=== PATIENT | female | born 1980 | race Caucasian/White ===

== ENCOUNTER → 2020-06-03 14:09 | Outpatient (BNVA) | payer SELFPAY | PROVIDERS: PCP Internal Medicine; Visit Provider Orthopaedic Surgery | DX: Z76.89 Persons encountering health services in other specified circumstances (principal) ==

== ENCOUNTER 2020-06-16 14:19 | Outpatient (REF) | payer MEDICAID, OTHER, SELFPAY | END 2020-06-16 14:20 | disposition home or self-care (01) | LOC: HO.HOSX 14:19 | PROVIDERS: Visit Provider Orthopaedic Surgery | DX: Z13.89 Encounter for screening for other disorder (principal) ==

== ENCOUNTER → 2020-07-13 11:23 | Outpatient (BNVA) | payer MEDICAID, OTHER, SELFPAY | PROVIDERS: PCP Internal Medicine; Visit Provider Orthopaedic Surgery | DX: M77.11 Lateral epicondylitis, right elbow (principal) | CPT/HCPCS: 99202 ==

== ENCOUNTER 2020-07-21 18:37 | Outpatient (REF) | payer OTHER, SELFPAY ==
--- NOTE | ~2020-07-21 | MR_ITS ---
EXAMINATION: MR ELBOW WITHOUT CONTRAST, RIGHT CLINICAL INFORMATION: Lateral epicondylitis. Patient reports pain and numbness from the elbow to hand. COMPARISON: None TECHNIQUE: Multiplanar MR imaging was obtained through the right elbow without contrast on a 1.5 Kimberly magnet. FINDINGS: LIGAMENTS: Ulnar Collateral Ligament: Intact. Radial Collateral Ligament: Intact. TENDONS AND MUSCLES: Common Flexor: Intact. Common Extensor: Susceptibility artifact in the lateral humeral epicondyle likely arises from the metal at a soft tissue anchor from prior common extensor tendon repair. There is scar tissue in this region. No recurrent tears are identified. No significant tendinosis. Biceps: Intact. Brachialis: Intact. Triceps: Intact. BONE AND ARTICULAR CARTILAGE: Marrow signal is within normal limits aside from subtle chondral fissuring at the coronoid process. No fracture or malalignment. There is a small marginal osteophyte at the coronoid process. NERVES: Ulnar nerve is normal in appearance. The radial and median nerve and branches are normal in appearance without findings of impingement. No muscle denervation changes are identified. JOINT FLUID: No effusion or loose body. SOFT TISSUES: Scar tissue is present in the subcutaneous fat at the posterolateral aspect of the lateral humeral epicondyle. MR/MR elbow RT wo con IMPRESSION: Postsurgical changes at the lateral epicondyle without evidence of recurrent epicondylitis/tendinosis. No tears. Minimal arthrosis at the coronoid process. No acute osteochondral abnormalities.
== END 2020-07-21 18:38 | disposition home or self-care (01) ==
LOC: HO.MRI 18:37
PROVIDERS: Visit Provider Orthopaedic Surgery
DX: M77.11 Lateral epicondylitis, right elbow (principal)
CPT/HCPCS: 73221

== ENCOUNTER → 2020-07-29 09:05 | Outpatient (BNVA) | payer OTHER, SELFPAY | PROVIDERS: PCP Internal Medicine; Visit Provider Orthopaedic Surgery | DX: M75.41 Impingement syndrome of right shoulder (principal) | CPT/HCPCS: 20610; 99212; J1040 ==

== ENCOUNTER → 2020-08-12 14:56 | Outpatient (BNVA) | payer OTHER, SELFPAY | PROVIDERS: Visit Provider Orthopaedic Surgery ==

== ENCOUNTER 2020-10-21 14:06 | Outpatient (REF) | payer OTHER, SELFPAY ==
[2020-10-26 20:21] LABS: HPV mRNA E6/E7 rflx Not Detected (Not Detected)
== END 2020-10-21 14:07 | disposition home or self-care (01) ==
LOC: HO.LAB 14:06
PROVIDERS: PCP Internal Medicine; Visit Provider Advanced Practice Midwife
DX: Z01.419 Encounter for gynecological examination (general) (routine) without abnormal findings (principal); R87.610 Atypical squamous cells of undetermined significance on cytologic smear of cervix (ASC-US); E66.01 Morbid (severe) obesity due to excess calories; Z68.41 Body mass index [BMI] 40.0-44.9, adult; F17.200 Nicotine dependence, unspecified, uncomplicated
CPT/HCPCS: 87624; 88142

== ENCOUNTER 2021-10-27 15:34 | Outpatient (REF) | payer OTHER, SELFPAY ==
--- NOTE | ~2021-10-27 | MM_ITS ---
EXAMINATION: MM SCREENING DIGITAL BREAST TOMOSYNTHESIS, BILATERAL CLINICAL INFORMATION: Screening. Asymptomatic. No prior breast imaging. Age 41. The lifetime risk of breast cancer based on the Tyrer-Cuzick Model is 13%. COMPARISON: None (current study represents initial baseline exam). TECHNIQUE: Digital breast tomosynthesis is performed in both the craniocaudal and mediolateral oblique views along with computer-aided detection (CAD). Synthesized 2D images are generated from the tomosynthesis. FINDINGS: There are scattered areas of fibroglandular density (ACR BI-RADS breast composition Category b). There are no significant masses, abnormal calcifications, or other abnormalities. The axilla and skin contours are unremarkable. MM/MM tomosynthesis screening BI IMPRESSION: No mammographic evidence of malignancy. ASSESSMENT: BI-RADS 1: Negative RECOMMENDATION: Routine annual mammography screening. This patient's information was entered into a reminder system with a target due date for their next mammogram.
== END 2021-10-27 15:35 | disposition home or self-care (01) ==
LOC: HO.MAMMO 15:34
PROVIDERS: Visit Provider Internal Medicine
DX: Z12.31 Encounter for screening mammogram for malignant neoplasm of breast (principal)
CPT/HCPCS: 77063; 77067

== ENCOUNTER 2021-12-23 07:40 | Outpatient (REF) | payer OTHER, SELFPAY ==
--- NOTE | ~2021-12-23 | XR_ITS ---
EXAMINATION: XR shoulder RT min 2V CLINICAL INFORMATION: Reason for Exam M25.519 - Pain in unspecified shoulder COMPARISON: Shoulder radiographs 08/27/2019 TECHNIQUE: Three views of the shoulder XR/XR shoulder RT min 2V FINDINGS/IMPRESSION: * No acute fracture or dislocation. * Joint spaces are maintained without significant degenerative change. * No soft tissue abnormality.
== END 2021-12-23 07:41 | disposition home or self-care (01) ==
LOC: HO.HOSX 07:40
PROVIDERS: Visit Provider Physician Assistant
DX: M75.101 Unspecified rotator cuff tear or rupture of right shoulder, not specified as traumatic (principal)
CPT/HCPCS: 73030; J1040

== ENCOUNTER 2022-01-04 15:38 | Outpatient (REF) | payer OTHER, SELFPAY ==
--- NOTE | ~2022-01-04 | MR_ITS ---
EXAMINATION: MR SHOULDER WITHOUT CONTRAST, RIGHT CLINICAL INFORMATION: Right shoulder pain and numbness following a fall. Evaluate for a rotator cuff tendon tear. COMPARISON: Most recent right shoulder radiographs dated 12/23/2021. TECHNIQUE: MRI of the shoulder without contrast was performed on a high-field scanner. FINDINGS: ROTATOR CUFF: Minimal supraspinatus tendinosis with distal bursal surface fraying. No full-thickness rotator cuff tendon tear. No muscle atrophy or fatty infiltration. BICEPS: Intact. CORACOACROMIAL ARCH: The undersurface of the acromion is flat with no subacromial spur. The acromioclavicular joint is normal. LABRUM/CAPSULE: No displaced tear. Intact joint capsule. GLENOHUMERAL JOINT/MARROW: Intact articular cartilage. No marrow edema. No significant joint effusion. MR/MR shoulder RT wo con IMPRESSION: 1. Minimal supraspinatus tendinosis with distal bursal surface fraying. 2. Otherwise unremarkable examination.
== END 2022-01-04 15:39 | disposition home or self-care (01) ==
LOC: HO.MRI 15:38
PROVIDERS: Visit Provider Physician Assistant
DX: M75.101 Unspecified rotator cuff tear or rupture of right shoulder, not specified as traumatic (principal)
CPT/HCPCS: 73221

== ENCOUNTER 2022-01-26 15:10 | Outpatient (REF) | payer OTHER, SELFPAY ==
[2022-01-27 06:41] LABS: CT PCR NOT DETECTED (Not Detect.); NG PCR NOT DETECTED (Not Detect.)
[2022-01-27 09:40] LABS: BV Int Neg Control Negative (Negative); BV Int Pos Control Positive (Positive)
[2022-01-29 06:12] LABS: HPV mRNA E6/E7 rflx Not Detected (Not Detected)
== END 2022-01-26 15:11 | disposition home or self-care (01) ==
LOC: HO.LAB 15:10
PROVIDERS: Visit Provider Advanced Practice Midwife
DX: Z01.419 Encounter for gynecological examination (general) (routine) without abnormal findings (principal); Z11.51 Encounter for screening for human papillomavirus (HPV)
CPT/HCPCS: 87480; 87491; 87510; 87591; 87624; 87660; 88142

== ENCOUNTER 2022-03-11 08:38 | Outpatient (REF) | payer OTHER, SELFPAY ==
[2022-03-11 08:57] LABS: MANUAL DIFF FLAG NO
[2022-03-11 09:53] LABS: Basophils Absolute Auto 0.1 X10*3/uL (0.0-0.2); Basophils Percent Auto 0.8 % (0-2); Eosinophils Absolute Auto 0.1 X10*3/uL (0.0-0.4); Eosinophils Percent Auto 1.2 % (0-4); Hematocrit 44.7 % (37.0-47.0); Hemoglobin 14.3 g/dl (12.0-16.0); Imm Gran Abs Auto 0.04 X10*3/uL (0.00-0.03); Imm Gran Pct Auto 0.4 % (0.0-0.4); Lymphocytes Percent Auto 26.1 % (20-40); Mean Corpuscular Hemoglobin 29.2 pg (27.0-33.0); Mean Corpuscular Volume 91.2 fL (80.0-98.0); Mean Platelet Volume 11.6 fL (9.4-12.3); Monocytes Absolute Auto 0.7 X10*3/uL (0.1-1.2); Monocytes Percent Auto 6.1 % (2-11); Neutrophils Absolute Auto 7.4 x10*3/uL (2.0-8.3); Neutrophils Percent Auto 65.4 % (45-73); Platelet Count 359 X10*3/uL (160-400); Red Cell Distribution Width 13.4 % (11.0-16.0); White Blood Count 11.4 X10*3/uL (4.8-10.8)
[2022-03-11 10:11] LABS: Appearance Urine Clear; Color Urine Yellow; Glucose Urine UA Negative (Negative); Leukocyte Esterase Urine Negative (Negative); Nitrite Urine Negative (Negative); PH 6.5 (5.0-9.0); Specific Gravity - Urine 1.025 (1.005-1.025); UMIC TRIGGER UA YES; Urine Blood Small (1+) (Negative); Urine Ketones Negative (Negative); Urine Protein Negative (Neg-Trace)
[2022-03-11 10:17] LABS: Bacteria Urine None Seen (None Seen); Hyaline Casts Urine 0-2 /LPF (0-2); WBC Urine 0-5 /HPF (0-5)
[2022-03-11 10:46] LABS: Alanine Aminotransferase 11 U/L (0-31); Albumin Level 4.2 g/dL (3.5-5.0); Alkaline Phosphatase 91 U/L (39-117); Anion Gap 15 (12-20); Aspartate Amino Transferase 11 U/L (5-31); Bilirubin Total 0.6 mg/dL (0.0-1.0); Blood Urea Nitrogen 9 mg/dL (9-16); Calcium 9.2 mg/dL (8.4-10.2); Carbon Dioxide 26 mmol/L (22-29); Chloride 103 mmol/L (96-108); Cholesterol 199 mg/dL; Estimated Glomerular Filt Rate > 60; Glucose Random 87 mg/dL (60-115); HDL Cholesterol 36 mg/dL; LDL Cholesterol Calculated 139 mg/dl; Potassium 4.7 mmol/L (3.3-5.1); Sodium 139 mmol/L (135-145); Total Protein 7.1 g/dL (6.5-8.0); Triglycerides 120 mg/dL
[2022-03-11 10:55] LABS: Free T4 (Free Thyroxine) 1.16 ng/dL (0.71-1.85); Thyroid Stimulating Hormone 0.57 uIU/mL (0.32-4.0); Vitamin D 25-OH Total 14.6 ng/mL (>30)
[2022-03-11 11:10] LABS: Folate 10.6 ng/mL (> or = 4.0); Vitamin B12 191 pg/mL (200-900)
[2022-03-15 01:46] LABS: Rubella IgG Antibody 1.26 Index
== END 2022-03-11 08:39 | disposition home or self-care (01) ==
LOC: HO.LAB 08:38
PROVIDERS: PCP Internal Medicine; Visit Provider Internal Medicine
DX: Z02.0 Encounter for examination for admission to educational institution (principal); F41.1 Generalized anxiety disorder; K21.9 Gastro-esophageal reflux disease without esophagitis; E78.00 Pure hypercholesterolemia, unspecified; Z80.0 Family history of malignant neoplasm of digestive organs
CPT/HCPCS: 36415; 80053; 80061; 81001; 82306; 82607; 82746; 84439; 84443; 85025; 86735; 86762; 86765

== ENCOUNTER 2022-06-23 13:13 | Outpatient (REF) | payer OTHER, SELFPAY ==
[2022-06-23 20:28] LABS: CT PCR NOT DETECTED (Not Detect.); NG PCR NOT DETECTED (Not Detect.)
[2022-06-24 12:30] LABS: BV Int Neg Control Negative (Negative); BV Int Pos Control Positive (Positive)
== END 2022-06-23 13:14 | disposition home or self-care (01) ==
LOC: HO.LNP 13:13
PROVIDERS: PCP Internal Medicine; Visit Provider Obstetrics & Gynecology
DX: Z11.3 Encounter for screening for infections with a predominantly sexual mode of transmission (principal); N75.0 Cyst of Bartholin's gland
CPT/HCPCS: 0353U; 87480; 87510; 87660

== ENCOUNTER → 2022-11-03 13:08 | Outpatient (REF) | payer OTHER, SELFPAY | LOC: HO.SL 13:08 | PROVIDERS: PCP Internal Medicine; Visit Provider Internal Medicine | DX: G47.33 Obstructive sleep apnea (adult) (pediatric) (principal) | CPT/HCPCS: 95806 ==

== ENCOUNTER 2022-11-05 07:38 | Outpatient (REF) | payer OTHER, SELFPAY ==
--- NOTE | ~2022-11-05 | MM_ITS ---
EXAMINATION: MM SCREENING DIGITAL BREAST TOMOSYNTHESIS, BILATERAL CLINICAL INFORMATION: Screening. Asymptomatic. The lifetime risk of breast cancer based on the Tyrer-Cuzick Model is 13%. COMPARISON: Mammography: 10/27/2021 (baseline). TECHNIQUE: Digital breast tomosynthesis is performed in both the craniocaudal and mediolateral oblique views along with computer-aided detection (CAD). Synthesized 2D images are generated from the tomosynthesis. FINDINGS: There are scattered areas of fibroglandular density (ACR BI-RADS breast composition Category b). There are no significant masses, abnormal calcifications, or other abnormalities. Parenchymal pattern is similar to prior studies. There is no developing density or architectural abnormality. The axilla and skin contours are unremarkable. No significant changes. MM/MM tomosynthesis screening BI IMPRESSION: No mammographic evidence of malignancy. ASSESSMENT: BI-RADS 1: Negative RECOMMENDATION: Routine annual mammography screening. This patient's information was entered into a reminder system with a target due date for their next mammogram.
== END 2022-11-05 07:39 | disposition home or self-care (01) ==
LOC: HO.MAMMO 07:38
PROVIDERS: PCP Internal Medicine; Visit Provider Internal Medicine
DX: Z12.31 Encounter for screening mammogram for malignant neoplasm of breast (principal)
CPT/HCPCS: 77063; 77067

== ENCOUNTER 2023-01-02 16:45 | Outpatient (AMB) | payer BC, SELFPAY ==
[2023-01-02 16:46] VITALS: BP 110/80; PULSE 73; O2SAT 98; BMI 37.3
--- NOTE | 2023-01-02 16:46 | A.OFFPC_ITS ---
Vital Signs 01/02/23 16:46 Height 5 ft 2 in Weight 204 lb 2 oz BMI 37.3 BP 110/80 Blood Pressure Location Lt brachial Position Sitting Pulse 73 Pulse Source Pulse Oximeter Pulse Oximetry (%) 98 Oxygen Delivery Method Room Air Intake Visit Reasons: follow up [employer] Required: No Accompanied by: Self / Same As Patient Allergies barium sulfate Allergy (Unknown, Verified 01/02/23 16:46) Nightmare codeine Allergy (Unknown, Verified 01/02/23 16:46) codeine phosphate, ITCHY varenicline [From Chantix] Allergy (Unknown, Verified 01/02/23 16:46) nightmares Medication List - Last Reconciled 01/02/23 by Huong Major MD benzonatate 100 mg PO BID cyanocobalamin (vitamin B-12) 1,000 mcg PO DAILY hydroxyzine HCl 25 mg PO BID ipratropium-albuterol 20-100 mcg/actuation (Combivent Respimat) 1 puff PO Q6H nicotine 1 patch transdermal DAILY nicotine 1 patch transdermal DAILY omeprazole 20 mg PO DAILY sumatriptan succinate 50 mg PO Q2-4H PRN tizanidine 4 mg PO TID PRN Tobacco use date assessed: 01/02/23 Dental Screening Dental Screen Date: 01/02/23 Did you have a dental visit in the last 12 months?: No Did you have a dental problem in the last 6 months where you did not have access to dental care?: No Was dental information given to patient?: Patient has dentist HPI follow up HPI Details 42-year-old female smoker with a history of peripheral vascular disease generalized anxiety disorder right shoulder pain asthma GERD hypersomnia last seen in July 2022 sleep study was requested. Results showing mild sleep study AHI of 7 patient has been advised conservative measures only weight reduction and position therapy. Patient had an MRI of the right shoulder showing minimal supraspinatus tendinosis with distal bursal l surface fraying. PT advised . Is to smoke states about 7-10 cigarettes a day and is willing to try the patches as well as advised to add lozenges to help. As for asthma would like to get a refill on the Combivent. Patient also recently had a left wrist injury was trying to open double door and somebody was coming in so injured the left wrist and wants to get them x-rays done. [facility] Medical History (Updated 01/02/23 @ 17:00 by Huong Major MD) Annual physical exam Anxiety ASCUS of cervix with negative high risk HPV Asthma Breast cancer screening by mammogram Cervical disc herniation Family history of colon cancer GERD (gastroesophageal reflux disease) Hypersomnia Labral tear of left hip joint Lateral epicondylitis of right elbow Lumbar disc herniation Migraine Obesity, morbid, BMI 40.0-49.9 Painful arc syndrome of right shoulder Pelvic floor weakness in female Rotator cuff impingement syndrome of right shoulder Rotator cuff tear, left Smoker Tobacco abuse Wedge compression fracture of T11 vertebra Well woman exam with routine gynecological exam Well woman exam with routine gynecological exam Surgical History History of elbow surgery History of foot surgery History of tubal ligation Family History Mother Depression with anxiety Colon cancer, Onset Age: 50 Myocardial infarction Father No problems noted. 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 1. Little interest or pleasure in doing things: not at all 2. Feeling down, depressed, or hopeless: not at all 3. Trouble falling or staying asleep, or sleeping too much: not at all 4. Feeling tired or having little energy: not at all 5. Poor appetite or overeating: not at all 6. Feeling bad about yourself - or that you are a failure or have let yourself or your family down: not at all 7. Trouble concentrating on things, such as reading the newspaper or watching television: not at all 8. Moving or speaking so slowly that other people could have noticed. Or the opposite - being so fidgety or restless that you have been moving around a lot more than usual: not at all 9. Thoughts that you would be better off or of hurting yourself in some way: not at all Total score: 0 Depression Screening Interpretation: Negative Source: Developed by Drs. Sathish Bui, Adriana Watts, Vladislav Espinoza and colleagues, with an educational dominick from [employer]. Thrive Questionnaire Date Thrive assessed: 01/02/23 I am a: Patient What is your living situation today?: I have a steady place to live Within the past 12 months, did the food you bought not last and you didn't have the money to get more?: Never true Within the past 12 months, did you worry whether your food would run out before you got money to buy more?: Never true Do you have trouble paying for medicines?: No Do you have trouble getting transportation to medical appointments?: No Do you have trouble paying your heating and electricity bill?: No Do you have trouble taking care of your child, family member or friend?: No Do you have trouble with day-to-day activities such as bathing, preparing meals, shopping, managing finances, etc.?: No Are you currently unemployed and looking for a job?: No Are you interested in more education?: No Please select the resources that you would like help with: None Currently or been in a relationship where the following occur: no concerns reported AUDIT C Alcohol Use Questionnaire (AUDIT-C) 1. How often do you have a drink containing alcohol?: Monthly or less 2. How many drinks containing alcohol do you have on a typical day when you are drinking?: 1 or 2 3. How often do you have six or more drinks on one occasion?: Never Total Score: 1 ADELAIDA-7 AMB Questionnaire ADELAIDA-7 Date ADELAIDA - 7 assessed: 01/02/23 Feeling nervous, anxious, or on edge: 0 = Not at all Not being able to stop or control worryin = Not at all Worrying too much about different things: 0 = Not at all Trouble relaxin = Not at all Being so restless that it is hard to sit still: 0 = Not at all Becoming easily annoyed or irritable: 0 = Not at all Feeling afraid as if something awful might happen: 0 = Not at all Total ADELAIDA-7 score (0-4 normal; 5-9 mild; 10-14 moderate; 15-21 severe): 0 Source: Developed by Drs. Sathish Bui, Adriana Watts, Vladislav Espinoza and colleagues, with an educational dominick from [employer]. Physical exam (Primary Care) Vital Signs: Last Vital Signs Pulse 73 01/02/23 16:46 BP 110/80 01/02/23 16:46 Pulse Ox 98 01/02/23 16:46 Oxygen Delivery Method Room Air 01/02/23 16:46 BMI result Body Mass Index 37.3 Tobacco/Smoking Status: Tobacco use Status Tobacco use date assessed 01/02/23 01/02/23 16:52 e-Cigarette/Vaping Use Never Used 01/02/23 16:52 PHQ-9: PHQ-9 Score PHQ-9: Total score 0 01/02/23 16:52 Depression Screening Interpretation: Negative Thrive Assessment: Date of Thrive Assessment Date Thrive assessed 01/02/23 01/02/23 16:52 Currently or been in a relationship where the following occur: no concerns reported Const General: alert; No acute distress Eyes Conjunctivae: conjunctivae normal Resp Auscultation: clear to auscultation bilaterally Cardio Rate: regular rate Rhythm: regular rhythm GI Inspection: Yes normal to inspection Extrem General: Yes normal to inspection and No edema Assessment and Plan Assessment & Plan (1) Right shoulder pain: Comment: 2021Minimal supraspinatus tendinosis with distal bursal surface fraying. 2. Otherwise unremarkable examination. Code(s): M25.511 - Pain in right shoulder Plan: Patient has seen Ortho advised physical therapy (2) Mild obstructive sleep apnea: Code(s): G47.33 - Obstructive sleep apnea (adult) (pediatric) Plan: Conservative measures advised which is losing weight and avoid sleeping supine (3) Generalized anxiety disorder: Comment: Decline any referral for counseling(very busy) Code(s): F41.1 - Generalized anxiety disorder Plan: Continue with present medication (4) Tobacco abuse: Code(s): Z72.0 - Tobacco use Plan: Patient is strongly advised to stop! Nicotine patches sent in (5) Asthma: Code(s): J45.909 - Unspecified asthma, uncomplicated Qualifiers: Asthma severity: mild Asthma persistence: intermittent Asthma complication type: uncomplicated Qualified Code(s): J45.20 - Mild intermittent asthma, uncomplicated Plan: Stop smoking! Continue with the inhaler as needed. Discussed on stopping smoking. (6) GERD (gastroesophageal reflux disease): Code(s): K21.9 - Gastro-esophageal reflux disease without esophagitis Qualifiers: Esophagitis presence: without esophagitis Qualified Code(s): K21.9 - Gastro-esophageal reflux disease without esophagitis Plan: Avoid the foods that causes that usually spicy foods, tomato products, juices, coffee, soda and foods that your sensitive to. After eating do not lie down, allow 3-4 hours before in lie down. And keep the head of bed above 30 degrees to avoid the acid from going up. Advised strongly to stop smoking! (7) Left wrist pain: Code(s): M25.532 - Pain in left wrist Plan: X-ray requested Orders: Orders XR wrist LT 2V Today M25.532 - Pain in left wrist Comprehensive Met. Panel Today K21.9 - Gastro-esophageal reflux disease without esophagitis Complete Blood Count Auto Diff Today K21.9 - Gastro-esophageal reflux disease without esophagitis Free T4 (Free Thyroxine) Today K21.9 - Gastro-esophageal reflux disease without esophagitis Vitamin B12 and Folate Today K21.9 - Gastro-esophageal reflux disease without esophagitis Thyroid Stimulating Hormone Today K21.9 - Gastro-esophageal reflux disease without esophagitis Vitamin D 25-OH Total Today K21.9 - Gastro-esophageal reflux disease without esophagitis Lipid Panel Today E78.00 - Pure hypercholesterolemia, unspecified, K21.9 - Gastro-esophageal reflux disease without esophagitis Medications: New nicotine 1 patch transdermal DAILY 28 ea 0RF Z72.0 - Tobacco use nicotine 1 patch transdermal DAILY 28 ea 0RF Z72.0 - Tobacco use Coding Level of Care Code Est Pt Level 4 (32995) Diagnoses Right shoulder pain M25.511 Mild obstructive sleep apnea G47.33 Generalized anxiety disorder F41.1 Tobacco abuse Z72.0 Asthma J45.20 Asthma severity: mild Asthma persistence: intermittent Asthma complication type: uncomplicated GERD (gastroesophageal reflux disease) K21.9 Esophagitis presence: without esophagitis Left wrist pain M25.532
== END 2023-01-02 17:22 | disposition home or self-care (01) ==
PROVIDERS: Visit Provider Internal Medicine
DX: M25.511 Pain in right shoulder (principal); G47.33 Obstructive sleep apnea (adult) (pediatric); J45.20 Mild intermittent asthma, uncomplicated; K21.9 Gastro-esophageal reflux disease without esophagitis; F41.1 Generalized anxiety disorder; Z72.0 Tobacco use; M25.532 Pain in left wrist
CPT/HCPCS: 99214

== ENCOUNTER 2023-04-14 09:06 | Outpatient (AMB) | payer BC, SELFPAY ==
--- NOTE | 2023-04-14 09:37 | AM.OFFWIN_ITS ---
Intake Vital Signs 04/14/23 09:38 Height 5 ft 2 in Weight 92.533 kg BMI 37.3 BP 120/84 Blood Pressure Location Lt brachial Position Sitting Pulse 87 Pulse Source Pulse Oximeter Temp 98.8 F Temp Source Oral Pulse Oximetry (%) 98 Oxygen Delivery Method Room Air Intake Visit Reasons: EST/chest congestion(lobby masked) Intake Note: Pt is here today chest congestion x3 days and coughing Patient Tobacco Use Status: Current everyday Tobacco user Allergies barium sulfate Allergy (Unknown, Verified 04/14/23 09:39) Nightmare codeine Allergy (Unknown, Verified 04/14/23 09:39) codeine phosphate, ITCHY varenicline [From Chantix] Allergy (Unknown, Verified 04/14/23 09:39) nightmares Do you need a note to return to daycare/school/sports/work: Yes HPI HPI Comments History of Present Illness Details 1015 43-year-old female history of vitamin B1 2 deficiency, hemorrhoids, constipation, migraines, asthma, GERD, anxiety presenting to the clinic for sick visit complaining of chest congestion, cough, feels like she has to cough something up however has not been able to. Patient also reporting associated fatigue, malaise. Denies sick contacts. Denies fevers, chills, chest pain, shortness of breath, nausea,, pain, headache, vision changes, dizziness weakness Physical exam benign Likely bronchitis versus viral illness. Unlikely pneumonia, pulmonary embolism, no signs of acute respiratory distress. No signs of effusions. Plan will obtain a COVID test, chest x-ray. Educated patient on diagnosis and treatment plan, answered all question, patient verbalizes understanding. At this time patient will be discharged home, advised to return with new or worsening symptoms. Educated on worrisome signs and symptoms and when to return. At this time I feel comfortable discharge home. [facility] Medical History Hypersomnia Pelvic floor weakness in female Well woman exam with routine gynecological exam Family history of colon cancer Annual physical exam Painful arc syndrome of right shoulder Breast cancer screening by mammogram Smoker Obesity, morbid, BMI 40.0-49.9 Well woman exam with routine gynecological exam Rotator cuff impingement syndrome of right shoulder Lumbar disc herniation Rotator cuff tear, left Labral tear of left hip joint Wedge compression fracture of T11 vertebra Cervical disc herniation ASCUS of cervix with negative high risk HPV Migraine Tobacco abuse Anxiety Asthma GERD (gastroesophageal reflux disease) Lateral epicondylitis of right elbow Surgical History History of elbow surgery History of tubal ligation History of foot surgery Family History Mother Depression with anxiety Colon cancer, Onset Age: 50 Myocardial infarction Father No problems noted. 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 Cognitive needs: No Hearing needs: No Vision needs: No Female Reproductive History Menstrual Age of Menarche: 15 Review of Systems Const Details: Constitutional : No Weight loss, No Fever, No Chills, + Fatigue, + Malaise ENT/Mouth : No sore throat, No Rhinorrhea Eyes: No Eye Pain, No Swelling, No Redness Cardiovascular : No Chest Pain, No SOB, No Dyspnea on Exertion, No Orthopnea, No Edema, No Palpitations Respiratory : + Cough, No Sputum, No Wheezing Gastrointestinal : No Nausea, No Vomiting, No Diarrhea, No Constipation, No abd ominal Pain, No Hematochezia, No Melena Genitourinary : No Dysuria, No Urinary Frequency, No Hematuria, Musculoskeletal : No joint pain, No Myalgias, No Joint Swelling Skin : No Skin Lesions, No rash Neuro : No Weakness, No Numbness, No Dizziness, No Headache Psych : No Anxiety/Panic, No Depression All other systems reviewed and are negative All systems reviewed & are unremarkable except as noted in HPI and below Physical Exam Vital Signs: Last Vital Signs Temp 98.8 F 04/14/23 09:38 Pulse 87 04/14/23 09:38 BP 120/84 04/14/23 09:38 Pulse Ox 98 04/14/23 09:38 Oxygen Delivery Method Room Air 04/14/23 09:38 BMI result Body Mass Index 37.3 vss Appearance: Alert.? Oriented X3.? No acute distress.? Head: Normocephalic, atraumatic, no step-offs or deformities Eyes: Pupils equal, round and reactive to light. Neck: Normal inspection.? Neck supple.? CVS: Normal heart rate and rhythm.? Pulses normal.? Respiratory: No respiratory distress.? Breath sounds normal.? Abdomen: Soft and nontender.? Skin: Skin warm and dry.? Normal skin color.? Normal skin turgor.? Extremities: No lower extremity edema.? No calf ttp. 5/5 strength to bilateral upper and lower extremities Neuro: Oriented X 3.? No motor deficit.? No sensory deficit. CN 2-12 intact Assessment & Plan Assessment & Plan (1) Viral illness: Code(s): B34.9 - Viral infection, unspecified Plan Take your medications as prescribed. If you were prescribed antibiotics today, it is important that you take your medication to their entirety, do not skip any doses, do not finish them early. Follow-up with your primary care provider this week. Return to the emergency department with new or worsening symptoms. Such as fevers, chills, chest pain, shortness of breath, nausea, vomiting, dizziness, headache, vision changes, lethargy In case of emergency call 911 Orders: Orders BinaxNOW Covid-19 Ag Today B34.9 - Viral infection, unspecified XR chest 1V Today B34.9 - Viral infection, unspecified Medications: New prednisone 20 mg PO DAILY 5 tabs 0RF 5 days albuterol sulfate 90 mcg/actuation 2 puffs inhalation Q6H PRN 6.7 grams 0RF shortness of breath or wheezing Coding Level of Care Code Est Pt Level 3 (87321) Diagnoses Viral illness B34.9
[2023-04-14 09:38] VITALS: BP 120/84; PULSE 87; TEMP 37.1; O2SAT 98; BMI 37.3
== END 2023-04-14 11:00 | disposition home or self-care (01) ==
PROVIDERS: PCP Internal Medicine; Visit Provider Physician Assistant
DX: B34.9 Viral infection, unspecified (principal)
CPT/HCPCS: 99213

== ENCOUNTER 2023-04-14 10:24 | Outpatient (REF) | payer BC, SELFPAY ==
--- NOTE | ~2023-04-14 | XR_ITS ---
EXAMINATION: XR CHEST CLINICAL INFORMATION: Bilateral infection. COMPARISON: None available. TECHNIQUE: 2 views of the chest were obtained. FINDINGS: No significant abnormality is noted involving the heart, lungs, mediastinum, bony thorax or soft tissues. XR/XR chest 2V IMPRESSION: Unremarkable chest examination.
== END 2023-04-14 10:25 | disposition home or self-care (01) ==
LOC: HO.HMGCX 10:24
PROVIDERS: PCP Internal Medicine; Visit Provider Physician Assistant
DX: B34.9 Viral infection, unspecified (principal)
CPT/HCPCS: 71046

== ENCOUNTER 2023-04-18 14:55 | Outpatient (AMB) | payer BC, SELFPAY ==
[2023-04-18 14:57] VITALS: BP 130/78; BMI 38.0
--- NOTE | 2023-04-18 14:57 | A.OFFVIS_ITS ---
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: Conservator Artifacts Present (Donnieyn) Allergies barium sulfate Allergy (Unknown, Verified 04/18/23 15:01) Nightmare codeine Allergy (Unknown, Verified 04/18/23 15:01) codeine phosphate, ITCHY varenicline [From Chantix] Allergy (Unknown, Verified 04/18/23 15:01) nightmares Medication List - Last Reconciled 04/18/23 by Johnna Mohamud CNM albuterol sulfate 90 mcg/actuation 2 puffs inhalation Q6H PRN hydroxyzine HCl 25 mg PO BID ipratropium-albuterol 0.5 mg-3 mg(2.5 mg base)/3 mL 3 mL inhalation TID PRN ipratropium-albuterol 20-100 mcg/actuation (Combivent Respimat) 1 puff PO Q6H meloxicam 15 mg PO DAILY nebulizers (Mini Plus Nebulizer [facility] [place]) As directed omeprazole 20 mg PO DAILY prednisone 20 mg PO DAILY 5 days sumatriptan succinate 50 mg PO Q2-4H PRN tizanidine 4 mg PO TID PRN Is last menstrual period known: Yes Last menstrual period: 03/30/23 Post menopausal: No 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 She recently was diagnosed with walking pneumonia and is on antibiotics and prednisone and something else. She had an upper respiratory infection before this she is a smoker she and her have tried quitting but it never works out and she has tried the patch and Chantix and it did not help and she had reactions to them. 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 She does not get time for exercise. she has only healthy type food in her house with no sugar and low-fat and fruits and vegetables but everyone in the family including her son struggles. She has problems with urinary incontinence and wears pads and even though I sent a referral to pelvic floor therapy she did not have time to go because of her work hours. She does get yearly mammograms and has them set up year to year and will be getting her next in June or July. 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 Well woman exam with routine gynecological exam Family history of colon cancer Annual physical exam Painful arc syndrome of right shoulder Breast cancer screening by mammogram Smoker Obesity, morbid, BMI 40.0-49.9 Well woman exam with routine gynecological exam Rotator cuff impingement syndrome of right shoulder Lumbar disc herniation Rotator cuff tear, left Labral tear of left hip joint Wedge compression fracture of T11 vertebra Cervical disc herniation ASCUS of cervix with negative high risk HPV Migraine Tobacco abuse Anxiety Asthma GERD (gastroesophageal reflux disease) Lateral epicondylitis of right elbow Surgical History History of elbow surgery History of tubal ligation History of foot surgery Family History Mother Depression with anxiety Colon cancer, Onset Age: 50 Myocardial infarction Father No problems noted. 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 Cognitive needs: No Hearing needs: No Vision needs: No Female Reproductive History Menstrual Age of Menarche: 15 Duration of menses: 8-10 days Date of last menstrual period: 03/30/23 control method: other (tubal ligation) Total pregnancies: 2 Full term: 2 Number of Living Children: 2 Date of last pap smear: 01/27/22 (unsatisfactory) History of abnormal pap smear: Yes (2020 ASCUS) Date of Mammogram: 11/05/22 Physical Exam Vital Signs: Last Vital Signs BP 130/78 04/18/23 14:57 BMI result Body Mass Index 38.0 Assessment & Plan Assessment & Plan (1) ASCUS of cervix with negative high risk HPV: Comment: [id number], pap repeated 10/21/20= neg /neg hpv Code(s): R87.610 - Atypical squamous cells of undetermined significance on cytologic smear of cervix (ASC-US) (2) Urge incontinence: Code(s): N39.41 - Urge incontinence (3) Tobacco abuse: Code(s): Z72.0 - Tobacco use (4) Obesity (BMI 30.0-34.9): Code(s): E66.9 - Obesity, unspecified (5) Upper respiratory infection: Comment: States she had URI in last month and on Monday was diagnosed with walking pneumonia is on Z-Mohinder and prednisone and other meds.... Code(s): J06.9 - Acute upper respiratory infection, unspecified Plan -----Discussed in this visit the following: healthy balanced diet, regular and consistent exercise, getting recommended health screens, doing the best she can for her particular health concerns, kegel exercises, pap smear screening and followup recommendations, mammography screening and SBE, normal changes in cycles in her life stage--- .---I Had the patient and demonstrate a Kegel contraction at the end of the exam, ordered in order to explain a Kegel exercise, and instructed the patient on doing the same exercises several times a day with increasing strength each time. One useful to is to imagine pursestring around the vagina and pulling it tight and upwards as if raising the vagina, or imagining that her tight muscles are on the 1st floor and she is trying to pull them up to the 5th floor and then slowly letting them go down. To try to do these several times a day but focus on the quality and the strength of the exercises more than the quantity, and tried isolate just those muscles and not involve other body parts. I urged her to re -visit efforts to stop smoking and work on care of herself and getting healthier. I offered to place another referral for her but she does not think she can get here so I offered to place a urogynecology referral to [facility] and she thinks that is more of a possibility because it is closer to her work urogynecology referral placed but discussed that even if surgery or other issues were recommended without losing weight and working on smoking cessation it may be less successful urged her to continue trying to do the Kegel's but most of all urged her to work on trying to allow herself to void every couple of hours so that she completely empties and then does not have the issues with the stress incontinence.. Patient will getting her mammogram is scheduled and urogynecology referral placed and will be mailed to her as well so she can be proactive about working on. Pap smear done along with cultures. Orders: Orders Bacterial Vaginosis Panel Today Z20.2 - Contact with and (suspected) exposure to infections with a predominantly sexual mode of transmission CT NG by PCR Today Z20.2 - Contact with and (suspected) exposure to infections with a predominantly sexual mode of transmission Pap Smear Today Z12.4 - Encounter for screening for malignant neoplasm of cervix Referrals Urogynecology Referral E66.9 - Obesity, unspecified, N39.41 - Urge incontinence, R87.610 - Atypical squamous cells of undetermined significance on cytologic smear of cervix (ASC-US), Z72.0 - Tobacco use Coding Level of Care Code Est Pt Prev Care 40-64y(68999) Diagnoses ASCUS of cervix with negative high risk HPV R87.610 Urge incontinence N39.41 Tobacco abuse Z72.0 Obesity (BMI 30.0-34.9) E66.9 Upper respiratory infection J06.9
== END 2023-04-18 15:43 | disposition home or self-care (01) ==
LOC: HO.HWS 14:55
PROVIDERS: PCP Internal Medicine; Visit Provider Advanced Practice Midwife
DX: Z01.419 Encounter for gynecological examination (general) (routine) without abnormal findings (principal); R87.610 Atypical squamous cells of undetermined significance on cytologic smear of cervix (ASC-US); N39.41 Urge incontinence; Z72.0 Tobacco use; E66.9 Obesity, unspecified
CPT/HCPCS: 99396

== ENCOUNTER 2023-04-18 14:55 | Outpatient (REF) | payer BC, SELFPAY ==
[2023-04-19 14:01] LABS: CT PCR NOT DETECTED (Not Detect.); NG PCR NOT DETECTED (Not Detect.)
[2023-04-20 12:53] LABS: BV Int Neg Control Negative (Negative); BV Int Pos Control Positive (Positive)
[2023-04-24 11:59] LABS: HPV mRNA E6/E7 rflx Not Detected (Not Detected)
== END 2023-04-18 14:56 | disposition home or self-care (01) ==
LOC: HO.LNP 14:55
PROVIDERS: PCP Internal Medicine; Visit Provider Advanced Practice Midwife
DX: Z12.4 Encounter for screening for malignant neoplasm of cervix (principal); Z11.51 Encounter for screening for human papillomavirus (HPV); Z20.2 Contact with and (suspected) exposure to infections with a predominantly sexual mode of transmission
CPT/HCPCS: 0353U; 87480; 87510; 87624; 87660; 88142

== ENCOUNTER 2023-11-13 14:15 | Outpatient (REF) | payer BC, SELFPAY | END 2023-11-13 14:16 | disposition home or self-care (01) | LOC: HO.MAMMO 14:15 | PROVIDERS: PCP Internal Medicine; Visit Provider Internal Medicine | DX: Z12.31 Encounter for screening mammogram for malignant neoplasm of breast (principal) | CPT/HCPCS: 77063; 77067 ==

== ENCOUNTER → 2023-11-13 14:30 | Outpatient (BNV) | payer BC, SELFPAY | PROVIDERS: PCP Internal Medicine; Visit Provider Radiology Diagnostic Radiology | DX: Z12.31 Encounter for screening mammogram for malignant neoplasm of breast (principal) | CPT/HCPCS: 77063; 77067 ==

== ENCOUNTER 2024-01-05 09:41 | Outpatient (AMB) | payer BC, SELFPAY ==
[2024-01-05 09:42] VITALS: BP 118/74; PULSE 92; O2SAT 99; BMI 38.0
--- NOTE | 2024-01-05 09:42 | MHC.PC.OV ---
Vital Signs 01/05/24 09:42 Height 5 ft 2 in Weight 208 lb 0.4 oz BMI 38.0 BP 118/74 Blood Pressure Location Lt brachial Position Sitting Pulse 92 Pulse Source Pulse Oximeter Pulse Oximetry (%) 99 Oxygen Delivery Method Room Air Intake Visit Reasons: Bladder Issues Intake Note: pt c/o urine frequency and incontinence. pt also c/o of worsening migraine headaches. Microbiology Lab Analyst Required: No Allergies barium sulfate Allergy (Unknown, Verified 01/05/24 09:42) Nightmare codeine Allergy (Unknown, Verified 01/05/24 09:42) codeine phosphate, ITCHY varenicline [From Chantix] Allergy (Unknown, Verified 01/05/24 09:42) nightmares Medication List - Last Reconciled 01/05/24 by Bernadette Cortez PA-C albuterol sulfate 90 mcg/actuation 2 puffs inhalation Q6H PRN hydroxyzine HCl 25 mg PO BID ipratropium-albuterol 0.5 mg-3 mg(2.5 mg base)/3 mL 3 mL inhalation TID PRN ipratropium-albuterol 20-100 mcg/actuation (Combivent Respimat) 1 puff PO Q6H meloxicam 15 mg PO DAILY nebulizers (Mini Plus Nebulizer [facility]) As directed omeprazole 20 mg PO DAILY sumatriptan succinate 50 mg PO Q2-4H PRN tizanidine 4 mg PO TID PRN Tobacco use date assessed: 01/05/24 Dental Screening Dental Screen Date: 01/02/23 HPI Bladder Issues HPI Details 43-year-old female with a past medical history GERD, asthma, tobacco use, generalized anxiety disorder, obstructive sleep apnea, and urge incontinence last seen by Dr. Major 01/02/23 coming in for acute problem. In review of the notes, mammogram was completed 11/13/2023 BI-RADS 1 with 1 year follow up. Patient was seen by Gynecology 04/2023 referral was placed for urogynecology for incontinence. Patient states she has been having ongoing bladder issues for the past several years. She has been seen by gynecology and given pelvic floor exercises which did not help. She denies any pain with urination, new low back pain or pelvic pain. She describes her incontinence as feeling the urge to use the bathroom and being unable to reach the bathroom in time. She also has aspects of stress incontinence. She uses incontinence pads but often has accidents on the way to the bathroom. She has a previous history of migraines as using sumatriptan 50 mg as needed. She mentioned the last month her migraines have increased in frequency and severity. She is now having more vision changes along with occasional numbness in the right arm which resolves with a migraine resolution. She has also been using 100 mg of her sumatriptan at each dose instead of the 50 due to migraine severity. 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 Well woman exam with routine gynecological exam Family history of colon cancer Annual physical exam Painful arc syndrome of right shoulder Breast cancer screening by mammogram Smoker Obesity, morbid, BMI 40.0-49.9 Well woman exam with routine gynecological exam Rotator cuff impingement syndrome of right shoulder Lumbar disc herniation Rotator cuff tear, left Labral tear of left hip joint Wedge compression fracture of T11 vertebra Cervical disc herniation ASCUS of cervix with negative high risk HPV Migraine Tobacco abuse Anxiety Asthma GERD (gastroesophageal reflux disease) Lateral epicondylitis of right elbow Surgical History History of elbow surgery History of tubal ligation History of foot surgery Family History Mother Depression with anxiety Colon cancer, Onset Age: 50 Myocardial infarction Father No problems noted. 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 How often do you have a drink containing alcohol?: Monthly or less 2. How many drinks containing alcohol do you have on a typical day when you are drinking?: 1 or 2 3. How often do you have six or more drinks on one occasion?: Never Total Score: 1 ADELAIDA-7 AMB Questionnaire ADELAIDA-7 Date ADELAIDA - 7 assessed: 01/02/23 Source: Developed by Drs. Sathish Bui, Adriana Watts, Vladislav Espinoza and colleagues, with an educational dominick from [employer]. Review of Systems Const Denies body aches, Denies chills, Denies fever(s), Reports headache(s) and Denies poor appetite Eyes Reports change in vision (With migraines) ENT Denies dysphagia, Denies dizziness, Reports headache(s) and Denies odynophagia Card Denies chest pain, Denies syncope, Denies edema, Denies irregular heart rhythm, Denies lightheadedness and Denies dyspnea Resp Denies cough and Denies dyspnea GI Denies abdominal pain, Denies constipation, Denies dysphagia, Denies diarrhea, Denies nausea, Denies odynophagia and Denies vomiting Reports as per HPI Musc Reports no additional complaints and Denies abnormal gait Skin/Breast Reports system reviewed and no additional complaints, except as documented Neuro Denies abnormal gait, Denies dizziness, Denies syncope and Reports headache(s) Psych Reports no additional complaints Physical exam (Primary Care) Vital Signs: Last Vital Signs Pulse 92 01/05/24 09:42 BP 118/74 01/05/24 09:42 Pulse Ox 99 01/05/24 09:42 Oxygen Delivery Method Room Air 01/05/24 09:42 BMI result Body Mass Index 38.0 Tobacco/Smoking Status: Tobacco use Status Tobacco use date assessed 01/05/24 01/05/24 09:43 Patient Tobacco Use Status Current everyday Tobacco 01/05/24 09:43 e-Cigarette/Vaping Use Never Used 01/05/24 09:43 Thrive Assessment: Date of Thrive Assessment Date Thrive assessed 01/02/23 01/05/24 09:43 Const General: cooperative, healthy appearing, comfortable and no acute distress Orientation/consciousness: patient oriented x3 HENMT Head: Yes normocephalic Ears: hearing grossly normal bilaterally General nose exam: Normal external nose present Eyes General: appearance normal, both eyes and all related structures Conjunctivae: conjunctivae normal Neck Neck: Yes full ROM and Yes no lymphadenopathy Resp Effort & Inspection: normal respiratory effort Auscultation: clear to auscultation bilaterally, no crackles, no rales, no rhonchi and no wheezes Cardio Rate: regular rate Rhythm: regular rhythm Skin General skin exam: no rashes or lesions noted Neuro General: patient oriented x3 Gait exam (Neuro): Normal gait present Extrem General: Yes normal to inspection, Yes full ROM and No edema Psych Affect: normal affect Attitude: cooperative Insight: Good insight present (Psych) Judgement: Good judgement present (Psych) Assessment and Plan Assessment & Plan (1) Urge incontinence: Code(s): N39.41 - Urge incontinence Plan: Patient has tried pelvic floor exercises in the past with no relief. She has been seen by Gynecology for this issue and referred to urogynecology but did not go to this appointment. She currently uses incontinence pads. Her symptoms are most consistent with urge incontinence with some aspects of stress incontinence mixed in. She denies any pain with urination, blood in the urine, low back pain, or pelvic pain if you begin have these symptoms please come in for re-evaluation. Ordered for bladder ultrasound. We will trial oxybutynin 5 mg daily and follow up in 2 months. Patient was counseled on side effects of oxybutynin. (2) Migraine: Code(s): G43.909 - Migraine, unspecified, not intractable, without status migrainosus Plan: Patient has been on sumatriptan 50 mg as needed and states this dose is not strong enough for her most recent migraines. She states her migraines have increased in frequency and intensity over the last month and she is begun having intermittent right arm numbness which resolves with migraine resolution as well as increased visual changes with the migraines. Increased dose of sumatriptan 100 mg and do not exceed 200 mg in 24 hours. Referral to neurology placed due to increased intensity and new clinical features of her migraines. Plan We will follow up in 2 months after repeat blood work, urinalysis, and trial of oxybutynin. Patient strongly encouraged to stop smoking. Patient has family history colorectal cancer and referral to Gastroenterology sent for colon caner screening. This note was constructed using voice recognition software. While every effort has been made to ensure accuracy and investment banking associate, still areas may have been included sometimes these areas may affect the content or meeting of the given symptoms. Total time spent caring for the patient today was 35 minutes. This includes time spent before the visit reviewing the chart, time spent during the visit, and time spent after the visit and documentation. Orders: Orders UA CC w/rflx Micro + Cult Today K21.9 - Gastro-esophageal reflux disease without esophagitis, R30.0 - Dysuria US bladder Today N39.41 - Urge incontinence Thyroid Stimulating Hormone Today K21.9 - Gastro-esophageal reflux disease without esophagitis Lipid Panel Today E78.00 - Pure hypercholesterolemia, unspecified, K21.9 - Gastro-esophageal reflux disease without esophagitis Complete Blood Count Auto Diff Today K21.9 - Gastro-esophageal reflux disease without esophagitis Comprehensive Met. Panel Today K21.9 - Gastro-esophageal reflux disease without esophagitis Free T4 (Free Thyroxine) Today K21.9 - Gastro-esophageal reflux disease without esophagitis Referrals Neurology Referral G43.909 - Migraine, unspecified, not intractable, without status migrainosus Gastroenterology Referral Z12.11 - Encounter for screening for malignant neoplasm of colon Medications: New oxybutynin chloride 5 mg PO BEDTIME 30 tabs 1RF sumatriptan succinate take 1 tab at onset of headache; if no relief, may repeat 1 tab after at least 2 hrs; max = 2 tabs/24 hrs PO 10 tabs 3RF Discontinued sumatriptan succinate do not exceed 4 doses per 24 hrs Discontinued Reason: Ancillary Entered New Order 50 mg PO Q2-4H PRN 10 tabs 4RF migraine headache G43.909 - Migraine, unspecified, not intractable, without status migrainosus Coding Level of Care Code Est Pt Level 4 (59488) Diagnoses Urge incontinence N39.41 Migraine G43.909
== END 2024-01-05 10:21 | disposition home or self-care (01) ==
PROVIDERS: PCP Internal Medicine
DX: N39.41 Urge incontinence (principal); G43.909 Migraine, unspecified, not intractable, without status migrainosus
CPT/HCPCS: 99214

== ENCOUNTER 2024-01-09 14:22 | Outpatient (REF) | payer BC, SELFPAY ==
[2024-01-09 15:07] LABS: MANUAL DIFF FLAG NO
[2024-01-09 15:49] LABS: Basophils Absolute Auto 0.1 X10*3/uL (0.0-0.2); Basophils Percent Auto 0.7 % (0-2); Eosinophils Absolute Auto 0.2 X10*3/uL (0.0-0.4); Hematocrit 41.6 % (37.0-47.0); Hemoglobin 13.8 g/dl (12.0-16.0); Imm Gran Abs Auto 0.05 X10*3/uL (0.00-0.03); Imm Gran Pct Auto 0.5 % (0.0-0.4); Lymphocytes Absolute Auto 3.3 X10*3/uL (1.2-4.9); Lymphocytes Percent Auto 30.7 % (20-40); Mean Corpuscular HGB Conc 33.2 g/dl (31.0-35.0); Mean Corpuscular Hemoglobin 29.6 pg (27.0-33.0); Mean Corpuscular Volume 89.3 fL (80.0-98.0); Mean Platelet Volume 11.1 fL (9.4-12.3); Monocytes Absolute Auto 0.8 X10*3/uL (0.1-1.2); Neutrophils Absolute Auto 6.4 x10*3/uL (2.0-8.3); Neutrophils Percent Auto 59.1 % (45-73); Platelet Count 326 X10*3/uL (160-400); Red Blood Count 4.66 X10*6/uL (4.20-5.50); Red Cell Distribution Width 13.4 % (11.0-16.0); White Blood Count 10.8 X10*3/uL (4.8-10.8)
[2024-01-09 16:23] LABS: Alanine Aminotransferase 9 U/L (0-31); Albumin Level 4.1 g/dL (3.5-5.0); Alkaline Phosphatase 84 U/L (39-117); Anion Gap 10 (12-20); Aspartate Amino Transferase 12 U/L (5-31); Bilirubin Total 0.9 mg/dL (0.0-1.0); Blood Urea Nitrogen 11 mg/dL (9-16); Calcium 9.5 mg/dL (8.4-10.2); Carbon Dioxide 29 mmol/L (22-29); Chloride 104 mmol/L (96-108); Cholesterol 202 mg/dL (<200); Estimated Glomerular Filt Rate > 60; Glucose Random 81 mg/dL (60-115); HDL Cholesterol 38 mg/dL (>40); LDL Cholesterol Calculated 144 mg/dL (<100); Sodium 139 mmol/L (135-145); Total Protein 7.4 g/dL (6.5-8.0); Triglycerides 101 mg/dL (<150)
[2024-01-09 16:39] LABS: Free T4 (Free Thyroxine) 1.13 ng/dL (0.71-1.85); Thyroid Stimulating Hormone 0.75 uIU/mL (0.32-4.0)
[2024-01-09 16:51] LABS: Folate 9.5 ng/mL (> or = 4.0); Vitamin B12 222 pg/mL (200-900)
[2024-01-09 17:41] LABS: Appearance Urine Clear; Color Urine Dark Yellow; Glucose Urine UA Negative (Negative); Leukocyte Esterase Urine Negative (Negative); Nitrite Urine Negative (Negative); PH 6.5 (5.0-9.0); Specific Gravity - Urine >= 1.030 (1.005-1.025); UMIC TRIGGER UACC YES; Urine Blood Trace (Negative); Urine Ketones Trace mg/dL (Negative); Urine Protein Trace mg/dL (Neg-Trace)
[2024-01-09 17:47] LABS: Bacteria Urine None Seen (None Seen); Hyaline Casts Urine 0-2 /LPF (0-2); RBC Urine >20 /HPF (0-2); WBC Urine 0-5 /HPF (0-5)
== END 2024-01-09 14:23 | disposition home or self-care (01) ==
LOC: HO.LAB 14:22
PROVIDERS: PCP Internal Medicine
DX: K21.9 Gastro-esophageal reflux disease without esophagitis (principal); E78.00 Pure hypercholesterolemia, unspecified
CPT/HCPCS: 36415; 80053; 80061; 81001; 82607; 82746; 84439; 84443; 85025

== ENCOUNTER 2024-01-10 15:31 | Outpatient (REF) | payer BC, SELFPAY ==
--- NOTE | ~2024-01-10 | US_ITS ---
EXAMINATION: US PELVIS LIMITED (BLADDER) CLINICAL INFORMATION: Urge incontinence. COMPARISON: None available. TECHNIQUE: Real-time imaging of the bladder. FINDINGS: BLADDER: Well-distended and unremarkable. Bilateral ureteral jets are demonstrated. Prevoid bladder volume is 287 mL. Postvoid bladder volume is 27.2 mL. US/US bladder IMPRESSION: Postvoid bladder volume is 27.2 mL.
== END 2024-01-10 15:32 | disposition home or self-care (01) ==
LOC: HO.US 15:31
PROVIDERS: PCP Internal Medicine
DX: N39.41 Urge incontinence (principal)
CPT/HCPCS: 76857

== ENCOUNTER 2024-03-08 15:03 | Outpatient (AMB) | payer BC, SELFPAY ==
[2024-03-08 15:09] VITALS: BP 130/86; PULSE 69; O2SAT 99; BMI 38.2
--- NOTE | 2024-03-08 15:09 | A.OFFPC_ITS ---
Vital Signs 03/08/24 15:09 Height 5 ft 2 in Weight 209 lb BMI 38.2 BP 130/86 Blood Pressure Location Lt brachial Position Sitting Pulse 69 Pulse Source Pulse Oximeter Pulse Oximetry (%) 99 Oxygen Delivery Method Room Air Intake Visit Reasons: 2 Month F/U Power Tong Operator Required: No Allergies barium sulfate Allergy (Unknown, Verified 03/08/24 15:09) Nightmare codeine Allergy (Unknown, Verified 03/08/24 15:09) codeine phosphate, ITCHY varenicline [From Chantix] Allergy (Unknown, Verified 03/08/24 15:09) nightmares Medication List - Last Reconciled 03/08/24 by Bernadette Cortez PA-C albuterol sulfate 90 mcg/actuation 2 puffs inhalation Q6H PRN hydroxyzine HCl 25 mg PO BID ipratropium-albuterol 0.5 mg-3 mg(2.5 mg base)/3 mL 3 mL inhalation TID PRN ipratropium-albuterol 20-100 mcg/actuation (Combivent Respimat) 1 puff PO Q6H meloxicam 15 mg PO DAILY nebulizers (Mini Plus Nebulizer Engage) As directed omeprazole 20 mg PO DAILY oxybutynin chloride 5 mg PO BEDTIME sumatriptan succinate take 1 tab at onset of headache; if no relief, may repeat 1 tab after at least 2 hrs; max = 2 tabs/24 hrs PO tizanidine 4 mg PO TID PRN Tobacco use date assessed: 01/05/24 Dental Screening Dental Screen Date: 01/02/23 HPI 2 Month F/U HPI Details 44-year-old female with a past medical h istory GERD, asthma, tobacco use, generalized anxiety disorder, obstructive sleep apnea, and urge incontinence last seen December 2023 coming in for follow up.?Her last visit patient was started on oxybutynin for urge incontinence and referred to Neurology for treatment of migraines. She mentions she is still having incontinence despite starting the medication. She is having 2-3 episodes of incontinence per day which involves feeling the urge to urinate and not being able to make it to the bathroom in time. She continues to have migraines similar to her last appointment and uses sumatriptan with good relief. 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 Well woman exam with routine gynecological exam Family history of colon cancer Annual physical exam Painful arc syndrome of right shoulder Breast cancer screening by mammogram Smoker Obesity, morbid, BMI 40.0-49.9 Well woman exam with routine gynecological exam Rotator cuff impingement syndrome of right shoulder Lumbar disc herniation Rotator cuff tear, left Labral tear of left hip joint Wedge compression fracture of T11 vertebra Cervical disc herniation ASCUS of cervix with negative high risk HPV Migraine Tobacco abuse Anxiety Asthma GERD (gastroesophageal reflux disease) Lateral epicondylitis of right elbow Surgical History History of elbow surgery History of tubal ligation History of foot surgery Family History Mother Depression with anxiety Colon cancer, Onset Age: 50 Myocardial infarction Father No problems noted. 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 How often do you have a drink containing alcohol?: Monthly or less 2. How many drinks containing alcohol do you have on a typical day when you are drinking?: 1 or 2 3. How often do you have six or more drinks on one occasion?: Never Total Score: 1 ADELAIDA-7 AMB Questionnaire ADELAIDA-7 Date ADELAIDA - 7 assessed: 01/02/23 Source: Developed by Drs. Sathish Bui, Adriana Watts, Vladislav Espinoza and colleagues, with an educational dominick from [employer]. Review of Systems Const Denies body aches, Denies chills, Denies fever(s), Reports headache(s) and Denies poor appetite Eyes Reports no additional complaints ENT Denies dizziness and Reports headache(s) Card Denies chest pain, Denies lightheadedness and Denies dyspnea Resp Denies dyspnea GI Denies abdominal pain Reports as per HPI Musc Reports no additional complaints and Denies abnormal gait Skin/Breast Reports system reviewed and no additional complaints, except as documented Neuro Denies abnormal gait, Denies dizziness and Reports headache(s) Psych Reports no additional complaints Physical exam (Primary Care) Vital Signs: Last Vital Signs Pulse 69 03/08/24 15:09 BP 130/86 03/08/24 15:09 Pulse Ox 99 03/08/24 15:09 Oxygen Delivery Method Room Air 03/08/24 15:09 BMI result Body Mass Index 38.2 Tobacco/Smoking Status: Tobacco use Status Tobacco use date assessed 01/05/24 03/08/24 15:10 Patient Tobacco Use Status Current everyday Tobacco 03/08/24 15:10 e-Cigarette/Vaping Use Never Used 03/08/24 15:10 Thrive Assessment: Date of Thrive Assessment Date Thrive assessed 01/02/23 03/08/24 15:10 Const General: cooperative, healthy appearing, comfortable and no acute distress Orientation/consciousness: patient oriented x3 HENMT Head: Yes normocephalic Ears: hearing grossly normal bilaterally General nose exam: Normal external nose present Eyes General: appearance normal, both eyes and all related structures Conjunctivae: conjunctivae normal Neck Neck: Yes full ROM and Yes no lymphadenopathy Resp Effort & Inspection: normal respiratory effort Auscultation: clear to auscultation bilaterally, no crackles, no rales, no rhonchi and no wheezes Cardio Rate: regular rate Rhythm: regular rhythm GI Other: Suprapubic tenderness on exam Skin General skin exam: no rashes or lesions noted Neuro General: patient oriented x3 Gait exam (Neuro): Normal gait present Extrem General: Yes normal to inspection, Yes full ROM and No edema Psych Affect: normal affect Attitude: cooperative Insight: Good insight present (Psych) Judgement: Good judgement present (Psych) Assessment and Plan Assessment & Plan (1) Urge incontinence: Code(s): N39.41 - Urge incontinence Plan: Continue taking oxybutynin and referral placed for Urogynecology. Discussed lifestyle changes like timed voiding and incontinence pads. Continue to follow up as needed for this concern. (2) Migraine: Code(s): G43.909 - Migraine, unspecified, not intractable, without status migrainosus Plan: Continue to use sumatriptan and referral placed for Neurology at last appointment. Plan This note was constructed using voice recognition software. While every effort has been made to ensure accuracy and costumed character entertainer, still areas may have been included sometimes these areas may affect the content or meeting of the given symptoms. Total time spent caring for the patient today was 30 minutes. This includes time spent before the visit reviewing the chart, time spent during the visit, and time spent after the visit and documentation. Orders: Referrals Urogynecology Referral N39.41 - Urge incontinence, R87.610 - Atypical squamous cells of undetermined significance on cytologic smear of cervix (ASC-US) Coding Level of Care Code Est Pt Level 3 (82482) Diagnoses Urge incontinence N39.41 Migraine G43.909
== END 2024-03-08 16:33 | disposition home or self-care (01) ==
PROVIDERS: PCP Internal Medicine
DX: N39.41 Urge incontinence (principal); G43.909 Migraine, unspecified, not intractable, without status migrainosus

== ENCOUNTER → 2024-03-08 15:03 | Outpatient (BNVA) | payer BC, SELFPAY | PROVIDERS: PCP Internal Medicine | DX: N39.41 Urge incontinence (principal); G43.909 Migraine, unspecified, not intractable, without status migrainosus; Z79.899 Other long term (current) drug therapy ==

== ENCOUNTER 2024-04-08 | Outpatient (REF) | payer BC, SELFPAY ==
[2024-04-10 13:19] LABS: H Pylori Breath Test Negative (Negative)
== END 2024-04-08 00:01 | disposition home or self-care (01) ==
LOC: HO.LNP
PROVIDERS: Visit Provider Nurse Practitioner Family
DX: K21.9 Gastro-esophageal reflux disease without esophagitis (principal); R10.9 Unspecified abdominal pain; E55.9 Vitamin D deficiency, unspecified
CPT/HCPCS: 83013

== ENCOUNTER 2024-04-08 14:46 | Outpatient (REF) | payer BC, SELFPAY ==
[2024-04-08 16:11] LABS: Lipase 38 U/L (8-78)
[2024-04-10 21:14] LABS: Transglutaminase Ab IgG <1.0 U/mL; Transglutaminase IgA <1.0 U/mL
[2024-04-14 14:28] LABS: Vitamin D 25-OH, D2 <4 ng/mL; Vitamin D 25-OH, D3 8 ng/mL; Vitamin D 25-OH, Total 8 ng/mL (30-100)
== END 2024-04-08 14:47 | disposition home or self-care (01) ==
LOC: HO.LAB 14:46
PROVIDERS: PCP Internal Medicine; Visit Provider Nurse Practitioner Family
DX: R10.9 Unspecified abdominal pain (principal); E55.9 Vitamin D deficiency, unspecified
CPT/HCPCS: 36415; 82306; 83690; 86364

== ENCOUNTER 2024-04-08 14:46 | Outpatient (AMB) | payer BC, SELFPAY ==
--- NOTE | 2024-04-08 14:49 | A.OFFVIS_ITS ---
Vital Signs 04/08/24 14:50 Height 5 ft 2 in Weight 209 lb 7.026 oz BMI 38.3 BP 122/62 Blood Pressure Location Rt brachial Position Sitting Pulse 82 Pulse Source Pulse Oximeter Pulse Oximetry (%) 98 Oxygen Delivery Method Room Air Intake Visit Reasons: Colonoscopy Screening Intake Note: Relevant Flags or Indicators ? Requires Reinforcer? Abner Felipe presents in office today for a scheduled colo consult CC; No recent imaging or labs done, no rx'd meds. Pt denies any previous hx of colo or egd. Relevant GI Sx as reported per pt? * ? Reflux -- Pt does report occasional dysphagia w/o pain. Pt had been taking omeprazole 20 mg but stopped taking it because they felt like it was not helping them at all. Pt would like to discuss an alternative, pantoprazole? * Hemorrhoids both internal and external. ? Hx of any recent surgeries? None ? Pertinent FMHx? Mother - Harrison cancer, Maternal Grandfather - Harrison cancer. Breast cancer in multiple members. Reinforcer Required: No Allergies barium sulfate Allergy (Unknown, Verified 04/08/24 14:50) Nightmare codeine Allergy (Unknown, Verified 04/08/24 14:50) codeine phosphate, ITCHY varenicline [From Chantix] Allergy (Unknown, Verified 04/08/24 14:50) nightmares HPI HPI Colonoscopy Screening: Details: 44 year old? female with past medical history mild obstructive sleep apnea, hemo rrhoids, constipation, anxiety, migraines, asthma, GERD is here today for pre colonoscopy screening.? Patient was sent to us by her PCP.? This is her first colonoscopy screening.? Patient reports that her mom was diagnosed with colon cancer as well as maternal grandfather. Patient reports to have epigastric pain and acid reflux frequently after eating. Patient reports that she is taking omeprazole and is not helping so patient stopped taking it. Denies history of difficulty with sedation or anesthesia in the past.? Diagnosed with sleep apnea.? Denies any history of cardiac, renal, pulmonary, or hepatic disease.?? No history of infectious? diseases like hepatitis A, B, C, HIV or tuberculosis.? 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 Well woman exam with routine gynecological exam Family history of colon cancer Annual physical exam Painful arc syndrome of right shoulder Breast cancer screening by mammogram Smoker Obesity, morbid, BMI 40.0-49.9 Well woman exam with routine gynecological exam Rotator cuff impingement syndrome of right shoulder Lumbar disc herniation Rotator cuff tear, left Labral tear of left hip joint Wedge compression fracture of T11 vertebra Cervical disc herniation ASCUS of cervix with negative high risk HPV Migraine Tobacco abuse Anxiety Asthma GERD (gastroesophageal reflux disease) Lateral epicondylitis of right elbow Surgical History History of elbow surgery History of tubal ligation History of foot surgery Family History Mother Depression with anxiety Colon cancer, Onset Age: 50 Myocardial infarction Father No problems noted. 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 Cognitive needs: No Hearing needs: No Vision needs: No Female Reproductive History Menstrual Age of Menarche: 15 Physical Exam Vital Signs: Last Vital Signs Pulse 82 04/08/24 14:50 BP 122/62 04/08/24 14:50 Pulse Ox 98 04/08/24 14:50 Oxygen Delivery Method Room Air 04/08/24 14:50 BMI result Body Mass Index 38.3 Const General: healthy appearing and no acute distress Nutritional Appearance: obese Orientation/consciousness: patient oriented x3 Resp Effort & Inspection: normal respiratory effort, able to speak in complete sentences, no tracheal deviation and symmetric chest movement Auscultation: clear to auscultation bilaterally Cardio Rate: regular rate GI Inspection: Yes normal to inspection, No distended and Yes obesity Palpation (GI): Soft to palpation, not firm, nontender and No hepatosplenomegaly present Auscultation: normal bowel sounds General: Yes no CVA tenderness Back/Spine/Pelvis Back: no CVA tenderness Skin General skin exam: elasticity normal, turgor normal and dry skin Neuro General: patient oriented x3 Psych Appearance: grossly normal Mental Status: mental status grossly normal Assessment & Plan Assessment & Plan (1) Colon cancer screening: Code(s): Z12.11 - Encounter for screening for malignant neoplasm of colon Category: Medical (2) Constipation: Code(s): K59.00 - Constipation, unspecified Category: Medical Qualifiers: Constipation type: slow transit constipation Qualified Code(s): K59.01 - Slow transit constipation (3) GERD (gastroesophageal reflux disease): Code(s): K21.9 - Gastro-esophageal reflux disease without esophagitis Category: Medical Qualifiers: Esophagitis presence: without esophagitis Qualified Code(s): K21.9 - Gastro-esophageal reflux disease without esophagitis (4) Postprandial epigastric pain: Code(s): R10.13 - Epigastric pain (5) Postprandial abdominal bloating: Code(s): R14.0 - Abdominal distension (gaseous) (6) Family history of colon cancer: Code(s): Z80.0 - Family history of malignant neoplasm of digestive organs Plan Patient denies any cardiac or respiratory symptoms.? However patient does report that she has acid reflux postprandially. Tried omeprazole in the past and it was not working. Patient reports occasional epigastric pain. Will start her on pantoprazole daily. Patient will be sent for blood work will do H pylori breath test, transglutaminase, vitamin-D levels will send her for upper GI series with barium swallow to evaluate her reflux. Patient will be sent for upper endoscopy as well when she goes for colonoscopy. Denies any issues with anesthesia in the past.? History of sleep apnea. No history infectious diseases in the past or present.? Not on any anticoagulation therapy.? Family history of CRC.? Patient denies melena, hematochezia, unintentional weight loss or ribbon like stools.? Patient reports to be constipated will send script for senna. Orders: Orders H Pylori Breath Test 04/09/24 K21.9 - Gastro-esophageal reflux disease without esophagitis Transglutaminase Ab IgG 04/08/24 R10.9 - Unspecified abdominal pain Transglutaminase IgA 04/08/24 R10.9 - Unspecified abdominal pain FL upper GI w Ba Swallow 04/08/24 R13.10 - Dysphagia, unspecified Vitamin D 25-OH (D2 and D3) 04/08/24 E55.9 - Vitamin D deficiency, unspecified Lipase 04/08/24 R10.9 - Unspecified abdominal pain Medications: New pantoprazole take one tablet half an hour before breakfast 40 mg PO DAILY 30 tabs 2RF K21.9 - Gastro-esophageal reflux disease without esophagitis sennosides (Natural Senna Laxative) 17.2 mg (2 x 8.6 mg) PO BEDTIME 60 tabs 3RF constipation K59.00 - Constipation, unspecified Coding Level of Care Code New Pt Level 4 (95290) Diagnoses Colon cancer screening Z12.11 Slow transit constipation K59.01 Constipation type: slow transit constipation Gastroesophageal reflux disease without esophagitis K21.9 Esophagitis presence: without esophagitis Postprandial epigastric pain R10.13 Postprandial abdominal bloating R14.0 Family history of colon cancer Z80.0 Time Spent (min) 45 Comment 30 minutes spent with patient and additional 15 minutes spent reviewing her records
[2024-04-08 14:50] VITALS: BP 122/62; PULSE 82; O2SAT 98; BMI 38.3
== END 2024-04-08 15:44 | disposition home or self-care (01) ==
LOC: HO.HGI 14:47
PROVIDERS: PCP Internal Medicine; Visit Provider Nurse Practitioner Family
DX: K21.9 Gastro-esophageal reflux disease without esophagitis (principal); Z12.11 Encounter for screening for malignant neoplasm of colon; Z80.0 Family history of malignant neoplasm of digestive organs; K59.01 Slow transit constipation
CPT/HCPCS: 99204

== ENCOUNTER 2024-05-20 10:11 | Outpatient (AMB) | payer BC, SELFPAY ==
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
[2024-05-20 10:33] VITALS: BP 100/60; PULSE 72; O2SAT 98; BMI 38.4
--- OUTSIDE RECORDS SUMMARY | 2024-05-22 14:23 | XMS_ITS | Patient Health Record ---
Author Organization [facility] tyrone [place] Address [address] [facility] [place] [address] Care Team Providers Care Post Office Manager Name Role Phone Huong Major Primary Care Provider José Messina Unavailable [phone] Allergies No Known Allergies Reason For Referral No Information Medications Medication SIG (Take, Route, Frequency, Duration) Notes Start Date End Date Status tiZANidine HCl Not-T aking Physical Therapy . . . 2-3x/week for 3- 4 weeks Active traMADol HCl Active hydrOXYzine HCl Acti ve Combivent Respimat A ctive tiZANidine HCl Activ e Walking Boot/Pneumatic As directed Wear Daily for Until further notice 07/26/2022 Active Combivent Respimat 20-100 MCG/ACT 1 puff as needed Inhalation every 6 hrs Active traMADol HCl Not-Gilberto ing Social History Tobacco Use: Social History Observation Description Date Details (start date - stop date) Current Smoker NA - NA Tobacco Use/Smoking Question Answer Notes Are you a: current smoker How many cigarettes a day do you smoke? 5 or les s Alcohol Screen Question Answer Notes Did you have a drink containing alcohol in the p ast year? No Points 0 Interpretation Negative Tobacco use other than smoking: Question Answer Notes Are you an other tobacco user? No Problems Problem Type SNOMED Code ICD Code Onset Dates Problem Status W/U Status Risk Notes Problem Plantar fascial fibromatosis (08094304) Plantar fascial fibromatosis (M72.2) Active confirmed Plan Of Treatment Pending Test Test Name Order Date MRI : Ankle, right 07/26/2022 X ray : Foot, right 3V 05/26/2022 [id number] TENDON SHEATH/LIGAMENT 1 07/27/2021 Insurance Providers Payer Name Payer Address Payer Phone Subscriber Number Group Number Insured Name Patient Relationship to Insured Coverage Start Date Coverage End Date [facility] [address] [place] [address] [phone] [id number] Destinee Childs Self - patient is the insured Medical (General) History Medical History History ICD Code asthma Headaches/Migraines Surgical History Surgery Date(Month/Year) heel surgery, heel spur right foot elbow sx, right tubal ligation
== END 2024-05-20 11:33 | disposition home or self-care (01) ==
PROVIDERS: PCP Internal Medicine
DX: Z00.00 Encounter for general adult medical examination without abnormal findings (principal); E66.9 Obesity, unspecified; Z68.38 Body mass index [BMI] 38.0-38.9, adult; Z12.11 Encounter for screening for malignant neoplasm of colon; F17.210 Nicotine dependence, cigarettes, uncomplicated; G47.33 Obstructive sleep apnea (adult) (pediatric); F41.1 Generalized anxiety disorder; N39.41 Urge incontinence; G43.909 Migraine, unspecified, not intractable, without status migrainosus; Z72.0 Tobacco use; J45.20 Mild intermittent asthma, uncomplicated; Z23 Encounter for immunization

== ENCOUNTER → 2024-05-20 10:11 | Outpatient (BNVA) | payer BC, SELFPAY | PROVIDERS: PCP Internal Medicine | DX: Z00.00 Encounter for general adult medical examination without abnormal findings (principal); Z23 Encounter for immunization; E66.9 Obesity, unspecified; Z68.38 Body mass index [BMI] 38.0-38.9, adult; G47.33 Obstructive sleep apnea (adult) (pediatric); N39.41 Urge incontinence; F41.1 Generalized anxiety disorder; G43.909 Migraine, unspecified, not intractable, without status migrainosus; J45.20 Mild intermittent asthma, uncomplicated; K21.9 Gastro-esophageal reflux disease without esophagitis; E78.00 Pure hypercholesterolemia, unspecified; M25.511 Pain in right shoulder; M25.551 Pain in right hip; Z72.0 Tobacco use | CPT/HCPCS: 90471; 90714; 96127 ==

== ENCOUNTER 2024-06-03 07:56 | Outpatient (AMB) | payer BC, SELFPAY ==
--- OUTSIDE RECORDS SUMMARY | 2024-06-03 07:58 | XMS_ITS | Continuity of Care Document ---
[facility] [employer] [facility] Address [address] [place] [address], [address] [address]- Care Team Providers Care Bed Maker Name Role Phone Huong Major MD Primary Care Physician Encounter [facility] [id number] Date(s): 03/12/24 - 05/29/24 [facility] [place] [facility] [address] [place] [address], [address] [place] [address]- Attending Physician: Not on Staff, Attending MD Referring Physician: Huong Major MD Encounter Type: Pre-OutPatient One Time Problem List Condition Confirmation Course Effective Dates Status Health St atus Informant Obese class II Confirmed Active Patient Care team information Care Team Personnel Name: Huong Mjaor MD Position: Reference Physician Member Role: PCP Address: [address] [place] [address] Telecom: Care Team Related Persons Name: JOSE BEARD Name: LISHA BEARD Insurance Providers Guarantor name: SB BEARD Health Plan Information #: 1 Payer: [employer] Member Number: [id number] Policy Number: NA Group Number: [id number] Health Plan Information #: 2 Payer: [employer] Member Number: [id number] Policy Number: NA Group Number: [id number]
--- OUTSIDE RECORDS SUMMARY | 2024-06-03 07:58 | XMS_ITS | Patient Health Record ---
Author Organization [facility] tyrone [place] Address [address] [place] [address] Care Team Providers Care Supervisor [employer] Name Role Phone Huong Major Primary Care Provider José Messina Unavailable [phone] Allergies No Known Allergies Reason For Referral [...] Status Risk Notes Problem Plantar fascial fibromatosis (37519601) Plantar fascial fibromatosis (M72.2) Active confirmed Plan Of Treatment Pending Test Test Name Order Date MRI : Ankle, right 07/26/2022 X ray : Foot, right 3V 05/26/2022 [id number] TENDON SHEATH/LIGAMENT 1 07/27/2021 Insurance Providers Payer Name Payer Address Payer Phone Subscriber Number Group Number Insured Name Patient Relationship to Insured Coverage Start Date Coverage End Date [facility] [address] [place] [address] [id number] Destinee Childs Self - patient is the insured Medical (General) History Medical History History ICD Code asthma Headaches/Migraines Surgical History Surgery Date(Month/Year) heel surgery, heel spur right foot elbow sx, right tubal ligation
--- OUTSIDE RECORDS SUMMARY | 2024-06-03 07:58 | XMS_ITS | Continuity of Care Document ---
Author Organization [facility] Address [address] [facility], [address], [address] [place] [id number]- Care Team Providers Care Machine Tool Technology Instructor Name Role Phone Huong Major MD Primary Care Physician Encounter [facility] Date(s): 04/24/24 - 05/24/24 [facility] [address] [place] [address] [address]rd Floor, [address] [place] [id number] Encounter Type: Triage Problem List Condition Confirmation Course Effective Dates Status Health [facility] Informant Obese class II Confirmed Active Patient Care team information Care Team Personnel Name: Huong Major MD Position: Reference Physician Member Role: PCP Address: [address] [place] [id number] Telecom: Care Team Related Persons Name: JOSE BEARD Name: LISHA BEARD Insurance Providers Guarantor name: SB [employer]IRAG Health Plan Information #: 1 Payer: [employer] Member Number: NA Policy Number: NA Group Number: NA
--- NOTE | 2024-06-03 08:12 | A.OFFVIS_ITS ---
Vital Signs 06/03/24 08:22 Height 5 ft 2 in Weight 210 lb BMI 38.4 Handedness Right Intake Visit Reasons: OV- rt shoulder pain last injection 12/23/21 Intake Note: Destinee is a 44 year old right hand dominant female who presents today for a repeat injection for her right shoulder, last injection 12/23/21. Patient reports her last injection gave her relief. However her pain started to come back a few months back. She mentions if getting an MRI help her see if she made her pain worse waiting too long to repeat the injection. Allergies barium sulfate Allergy (Unknown, Verified 06/03/24 08:22) Nightmare codeine Allergy (Unknown, Verified 06/03/24 08:22) codeine phosphate, ITCHY varenicline [From Chantix] Allergy (Unknown, Verified 06/03/24 08:22) nightmares HPI HPI OV- rt shoulder pain last injection 12/23/21: Details: 44-year-old wlxra-doac-ezigkjhz female who presents in the office today for a follow-up of her rotator cuff impingement in the right shoulder. The patient has a history of fall in 2019. I last saw the patient in the office on 12/23/2021, when she reported attending physical therapy for two months that made her symptoms worse. She was given a cortisone injection at that time. She has had an MRI of the right shoulder done on 01/04/2022. While in the office today, the patient reports her right shoulder pain returned a few months ago. She mentions her last cortisone injection in the right shoulder provided her with relief. She inquires about the possibility of getting an MRI to assess if her prolonged wait for the injection has worsened her pain. [facility] Medical History Annual physical exam Hypersomnia Pelvic floor weakness in female Well woman exam with routine gynecological exam Family history of colon cancer Painful arc syndrome of right shoulder Breast cancer screening by mammogram Smoker Obesity, morbid, BMI 40.0-49.9 Well woman exam with routine gynecological exam Rotator cuff impingement syndrome of right shoulder Lumbar disc herniation Rotator cuff tear, left Labral tear of left hip joint Wedge compression fracture of T11 vertebra Cervical disc herniation ASCUS of cervix with negative high risk HPV Migraine Tobacco abuse Anxiety Asthma GERD (gastroesophageal reflux disease) Lateral epicondylitis of right elbow Surgical History History of elbow surgery History of tubal ligation History of foot surgery Family History Mother Depression with anxiety Colon cancer, Onset Age: 50 Myocardial infarction Father No problems noted. 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 Cognitive needs: No Hearing needs: No Vision needs: No Female Reproductive History Menstrual Age of Menarche: 15 Review of Systems Const All systems reviewed & are unremarkable except as noted in HPI and below Physical Exam Vital Signs: BMI result Body Mass Index 38.4 Const General: cooperative, healthy appearing and no acute distress Orientation/consciousness: patient oriented x3 Resp Effort & Inspection: normal respiratory effort and able to speak in complete sentences Cardio Rate: regular rate Peripheral pulses: Peripheral pulses 2+ throughout GI Palpation (GI): Soft to palpation Skin Lesions: no lesions Rashes: no rashes Neuro General: patient oriented x3 Extrem Other: Right shoulder: Normal to inspection. No ecchymosis, erythema, or edema. Pain with forward flex, abduction and cross-body reach. Forward flexion to 45 degrees as well as abduction. Unable to adequately assess empty can or drop arm due to pain and ROM restrictions. NVI. Psych Mental Status: mental status grossly normal Office Procedures AMB Joint Injection/Aspiration Joint Injection/Aspiration Primary Site: right shoulder Prep: site was prepped using aseptic technique, ethochloride spray was applied and injection warnings given Injected: 80 mg of, DepoMedrol, with 8 mL of (2% plain lido ) and in the subcromial space Approach Used: posterolateral Procedure: The patient tolerated the procedure well, but had some pain with the injection and there was some relief with the local anesthesia Coding 77087 - Large joint Procedure code (CPT) selection complete Assessment & Plan Assessment & Plan (1) Painful arc syndrome of right shoulder: Code(s): M75.101 - Unspecified rotator cuff tear or rupture of right shoulder, not specified as traumatic Category: Medical Plan Ms. Childs is a 44-year-old zjfmu-pwle-ocarzqsr female who presents in the office today for a follow-up of her rotator cuff impingement in the right shoulder. The patient has a history of fall in 2019. I last saw the patient in the office on 12/23/2021, when she reported attending physical therapy for two months that made her symptoms worse. She was given a cortisone injection at that time. She has had an MRI of the right shoulder done on 01/04/2022. While in the office today, the patient reports her right shoulder pain returned a few months ago. She mentions her last cortisone injection in the right shoulder provided her with relief. She inquires about the possibility of getting an MRI to assess if her prolonged wait for the injection has worsened her pain. The patient was offered a cortisone injection in the right shoulder with 80 mg of Depo-Medrol. The patient was explained the risks, benefits, and alternatives to receiving this injection. After receiving consent for the injection, the patient had the procedure done while in the office today. The patient tolerated the procedure well with no complication. If the cortisone injection fails to provide her any relief, the patient will contact the office, then the next step would be an MRI per patient request. Follow-up will be PRN, or sooner if needed. X-rays of the right shoulder, which were obtained while in the office today and were reviewed by me, Barbie Epstein PA-C, revealed: Negative for any acute fracture or dislocation. MRI of the right knee, obtained on 01/05/24, revealed: 1. Minimal supraspinatus tendinosis with distal bursal surface fraying. 2. Otherwise unremarkable examination. Orders: Orders XR shoulder RT min 2V 06/03/24 M25.519 - Pain in unspecified shoulder Patient Instructions: Scribed by Dia Mota, medical bill processor, for Barbie Epstein PA-C on 06/03/24 at 8:30 am EST. Coding Level of Care Code Est Pt Level 3 (19069) Diagnoses Painful arc syndrome of right shoulder M75.101 CPT Codes Coding - 26733 Large joint: 86874 - Large joint ([id number])
[2024-06-03 08:22] VITALS: BMI 38.4
== END 2024-06-03 08:32 | disposition home or self-care (01) ==
PROVIDERS: PCP Internal Medicine; Visit Provider Physician Assistant
DX: M75.101 Unspecified rotator cuff tear or rupture of right shoulder, not specified as traumatic (principal)
CPT/HCPCS: 20610; 99213

== ENCOUNTER 2024-06-03 15:20 | Outpatient (REF) | payer BC, SELFPAY ==
--- NOTE | ~2024-06-03 | XR_ITS ---
EXAMINATION: XR SHOULDER, RIGHT CLINICAL INFORMATION: M25.519 - Pain in unspecified shoulder COMPARISON: None available. TECHNIQUE: AP external rotation, Grashey, scapular Y, and axillary views of the right shoulder. FINDINGS: The bones and soft tissues are normal. No fracture. Glenohumeral and acromioclavicular alignment is anatomic with normal joint space. No abnormal soft tissue calcifications. XR/XR shoulder RT min 2V IMPRESSION: Normal right shoulder. Electronically signed by: Ambrosio Loza MD 06/03/2024 08:12 AM [facility]
--- OUTSIDE RECORDS SUMMARY | 2024-06-06 15:22 | XMS_ITS | Patient Health Record ---
Author Organization [facility] tyrone Sawyer Address [address] [place] [address] Care Team Providers Care Director Drug Name Role Phone Huong Major Primary Care Provider José Messina Unavailable [phone] Allergies No Known Allergies Reason For Referral [...] Status Risk Notes Problem Plantar fascial fibromatosis (76946708) Plantar fascial fibromatosis (M72.2) Active confirmed Plan Of Treatment Pending Test Test Name Order Date MRI : Ankle, right 07/26/2022 X ray : Foot, right 3V 05/26/2022 [id number] TENDON SHEATH/LIGAMENT 1 07/27/2021 Insurance Providers Payer Name Payer Address Payer Phone Subscriber Number Group Number Insured Name Patient Relationship to Insured Coverage Start Date Coverage End Date [facility] [address] [place] [address] [id number] Destinee Childs Self - patient is the insured Medical (General) History Medical History History ICD Code asthma Headaches/Migraines Surgical History Surgery Date(Month/Year) heel surgery, heel spur right foot elbow sx, right tubal ligation
== END 2024-06-03 15:21 | disposition home or self-care (01) ==
LOC: HO.HOSX 15:20
PROVIDERS: Visit Provider Physician Assistant
DX: M25.511 Pain in right shoulder (principal); M75.101 Unspecified rotator cuff tear or rupture of right shoulder, not specified as traumatic
CPT/HCPCS: 20610; 73030; J1010; J2003

== ENCOUNTER → 2024-07-18 07:39 | Outpatient (BNV) | payer BC, SELFPAY | PROVIDERS: PCP Internal Medicine; Visit Provider Radiology Diagnostic Radiology | DX: M25.551 Pain in right hip (principal); K21.00 Gastro-esophageal reflux disease with esophagitis, without bleeding | CPT/HCPCS: 73502; 74240; 74248 ==

== ENCOUNTER 2024-08-19 14:58 | Outpatient (AMB) | payer BC, SELFPAY ==
--- NOTE | 2024-08-19 15:24 | A.OFFPC_ITS ---
Vital Signs 08/19/24 15:25 Height 5 ft 2 in Weight 207 lb 2 oz BMI 37.9 BP 116/76 Blood Pressure Location Lt brachial Position Sitting Pulse 68 Pulse Source Pulse Oximeter Pulse Oximetry (%) 98 Oxygen Delivery Method Room Air Intake Visit Reasons: f/u medication and blood work Intake Note: Patient is here today for a physical. 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 Accompanied by: Self / Same As Patient Allergies barium sulfate Allergy (Unknown, Verified 08/19/24 15:26) Nightmare codeine Allergy (Unknown, Verified 08/19/24 15:26) codeine phosphate, ITCHY varenicline [From Chantix] Allergy (Unknown, Verified 08/19/24 15:26) nightmares Medication List - Last Reconciled 08/19/24 by Bernadette Cortez PA-C albuterol sulfate 90 mcg/actuation 2 puffs inhalation Q6H PRN bisacodyl (Dulcolax (bisacodyl)) 20 mg (4 x 5 mg) PO ONCE 1 day cholecalciferol (vitamin D3) 100 mcg (2 x 50 mcg (2,000 unit)) PO DAILY hydroxyzine HCl 25 mg PO BID ipratropium-albuterol 0.5 mg-3 mg(2.5 mg base)/3 mL 3 mL inhalation TID PRN ipratropium-albuterol 20-100 mcg/actuation (Combivent Respimat) 1 puff PO Q6H meloxicam 15 mg PO DAILY nebulizers (Mini Plus Nebulizer misc) As directed oxybutynin chloride 10 mg PO BEDTIME pantoprazole 40 mg PO DAILY polyethylene glycol 3350 (Miralax) 238 grams PO ONCE 1 day sennosides (Natural Senna Laxative) 17.2 mg (2 x 8.6 mg) PO BEDTIME sumatriptan succinate take 1 tab at onset of headache; if no relief, may repeat 1 tab after at least 2 hrs; max = 2 tabs/24 hrs PO tizanidine 4 mg PO TID PRN Tobacco use date assessed: 08/19/24 Dental Screening Dental Screen Date: 08/19/24 Did you have a dental visit in the last 12 months?: Yes Did you have a dental problem in the last 6 months where you did not have access to dental care?: No Was dental information given to patient?: Patient has dentist HPI f/u medication and blood work HPI Details 44-year-old female with past medical his tory of GERD, asthma, tobacco abuse, generalized anxiety disorder, obstructive sleep apnea and urge incontinence last seen 05/2024 coming in for follow up.?In review of the notes, patient was seen by [facility] vascular surgery 08/06/2024 for varicose veins recommending bilateral GSV ablation and stab phlebectomies to be scheduled under sedation. Presenting with multiple chronic issues and management of current pain symptoms. The patient has a history of urinary incontinence and is planning for a mesh bladder sling surgery as recommended due to multiple pelvic floor issues. The patient experiences significant leg pain associated with chronic venous insufficiency and has been scheduled for surgery, given that this pain severely affects her nocturnal rest. The patient is preparing for gastrointestinal evaluations to address ongoing GERD symptoms. Chronic back pain, both low and mid back, persists as a result of a past injury and is managed currently with meloxicam; previously utilized injections and chiropractic interventions are pending due to financial constraints. The patient's migraines have not been successfully managed with sumatriptan alone, emphasizing the need for preventive medication and Neurology referral moved to December of this year [facility] Medical History Annual physical exam Hypersomnia Pelvic floor weakness in female Well woman exam with routine gynecological exam Family history of colon cancer Painful arc syndrome of right shoulder Breast cancer screening by mammogram Smoker Obesity, morbid, BMI 40.0-49.9 Well woman exam with routine gynecological exam Rotator cuff impingement syndrome of right shoulder Lumbar disc herniation Rotator cuff tear, left Labral tear of left hip joint Wedge compression fracture of T11 vertebra Cervical disc herniation ASCUS of cervix with negative high risk HPV Migraine Tobacco abuse Anxiety Asthma GERD (gastroesophageal reflux disease) Lateral epicondylitis of right elbow Surgical History History of elbow surgery History of tubal ligation History of foot surgery Family History Mother Depression with anxiety Colon cancer, Onset Age: 50 Myocardial infarction Father No problems noted. 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 1. Little interest or pleasure in doing things: not at all 2. Feeling down, depressed, or hopeless: not at all 3. Trouble falling or staying asleep, or sleeping too much: not at all 4. Feeling tired or having little energy: not at all 5. Poor appetite or overeating: not at all 6. Feeling bad about yourself - or that you are a failure or have let yourself or your family down: not at all 7. Trouble concentrating on things, such as reading the newspaper or watching television: not at all 8. Moving or speaking so slowly that other people could have noticed. Or the opposite - being so fidgety or restless that you have been moving around a lot more than usual: not at all 9. Thoughts that you would be better off or of hurting yourself in some way: not at all Total score: 0 Depression Screening Interpretation: Negative Depression Screening Done: Yes 34937 - PHQ-9 Billing: Yes Source: Developed by Drs. Sathish Bui, Adriana Watts, Vladislav Espinoza and colleagues, with an educational dominick from [employer]. Thrive Questionnaire Date Thrive assessed: 08/19/24 I am a: Patient What is your living situation today?: I have a steady place to live Within the past 12 months, did the food you bought not last and you didn't have the money to get more?: Sometimes True Within the past 12 months, did you worry whether your food would run out before you got money to buy more?: Sometimes True Do you have trouble paying for medicines?: No Do you have trouble getting transportation to medical appointments?: No Do you have trouble paying your heating and electricity bill?: No Do you have trouble taking care of your child, family member or friend?: No Do you have trouble with day-to-day activities such as bathing, preparing meals, shopping, managing finances, etc.?: No Are you currently unemployed and looking for a job?: No Are you interested in more education?: No Please select the resources that you would like help with: None Currently or been in a relationship where the following occur: No concerns reported THRIVE Score: 2 AUDIT C Alcohol Use Questionnaire (AUDIT-C) 1. How often do you have a drink containing alcohol?: Never 3. How often do you have six or more drinks on one occasion?: Never Total Score: 0 ADELAIDA-7 AMB Questionnaire ADELAIDA-7 Date ADELAIDA - 7 assessed: 08/19/24 Feeling nervous, anxious, or on edge: 3 = Nearly every day Not being able to stop or control worryin = Nearly every day Worrying too much about different things: 3 = Nearly every day Trouble relaxin = More than half the days Being so restless that it is hard to sit still: 1 = Several days Becoming easily annoyed or irritable: 3 = Nearly every day Feeling afraid as if something awful might happen: 2 = More than half the days Total ADELAIDA-7 score (0-4 normal; 5-9 mild; 10-14 moderate; 15-21 severe): 17 Source: Developed by Drs. Sathish Bui, Adriana Watts, Vladislav Espinoza and colleagues, with an educational dominick from [employer]. ADELAIDA-7 Assessment Billing ADELAIDA-7 Assessment Tool: ADELAIDA-7 Assessment 54761 Review of Systems Const Denies body aches, Denies chills, Denies fever(s), Reports headache(s) and Denies poor appetite Eyes Reports no additional complaints ENT Denies dizziness and Reports headache(s) Card Denies chest pain, Denies syncope, Denies edema, Denies irregular heart rhythm, Denies lightheadedness and Denies dyspnea Resp Denies cough and Denies dyspnea GI Reports no additional complaints, Reports dyspepsia and Reports heartburn Reports as per HPI Musc Reports as per HPI and Denies abnormal gait Skin/Breast Reports system reviewed and no additional complaints, except as documented Neuro Denies abnormal gait, Denies dizziness, Denies syncope and Reports headache(s) Psych Reports no additional complaints Physical exam (Primary Care) Vital Signs: Last Vital Signs Pulse 68 08/19/24 15:25 BP 116/76 08/19/24 15:25 Pulse Ox 98 08/19/24 15:25 Oxygen Delivery Method Room Air 08/19/24 15:25 BMI result Body Mass Index 37.9 Tobacco/Smoking Status: Tobacco use Status Tobacco use date assessed 08/19/24 08/19/24 15:28 Patient Tobacco Use Status Current everyday Tobacco 08/19/24 15:25 e-Cigarette/Vaping Use Never Used 08/19/24 15:25 PHQ-9: PHQ-9 Score PHQ-9: Total score 0 08/19/24 15:28 Depression Screening Interpretation: Negative Thrive Assessment: Date of Thrive Assessment Date Thrive assessed 08/19/24 08/19/24 15:25 Currently or been in a relationship where the following occur: No concerns reported Const General: cooperative, healthy appearing, comfortable and no acute distress Orientation/consciousness: patient oriented x3 HENMT Head: Yes normocephalic Ears: hearing grossly normal bilaterally General nose exam: Normal external nose present Eyes General: appearance normal, both eyes and all related structures Conjunctivae: conjunctivae normal Neck Neck: Yes full ROM and Yes no lymphadenopathy Resp Effort & Inspection: normal respiratory effort Auscultation: clear to auscultation bilaterally, no crackles, no rales, no rhonchi and no wheezes Cardio Rate: regular rate Rhythm: regular rhythm Skin General skin exam: no rashes or lesions noted Neuro General: patient oriented x3 Gait exam (Neuro): Normal gait present Extrem General: Yes normal to inspection, Yes full ROM and No edema Psych Affect: normal affect Attitude: cooperative Insight: Good insight present (Psych) Judgement: Good judgement present (Psych) Coding Level of Care Code Est Pt Level 4 (81466) Diagnoses Mid back pain M54.9 Hypercholesterolemia E78.00 Obesity (BMI 30.0-34.9) E66.9 Right shoulder pain M25.511 Varicose veins of bilateral lower extremities with pain I83.813 Urge incontinence N39.41 Mild intermittent asthma without complication J45.20 Asthma severity: mild Asthma persistence: intermittent Asthma complication type: uncomplicated Gastroesophageal reflux disease without esophagitis K21.9 Esophagitis presence: without esophagitis Migraine G43.909 Additional Codes ADELAIDA-7 Assessment Billing - ADELAIDA-7 Assessment Tool: ADELAIDA-7 Assessment 59823 ([id number]) PHQ-9 - 21332 - PHQ-9 Billing: Yes ([id number]) Assessment & Plan Assessment & Plan (1) Mid back pain: Code(s): M54.9 - Dorsalgia, unspecified Category: Medical Plan: Referral placed to pain management today. Patient has had injections in the past which was successful in managing her back pain and has undergone physical therapy and chiropractor evaluations as well. (2) Hypercholesterolemia: Code(s): E78.00 - Pure hypercholesterolemia, unspecified Category: Medical Plan: Avoid foods that are high in cholesterol such as red meat, fried foods, eggs and baked goods. Triglyceride goal of less than 150 and LDL goal of less than 130. Reminded patient about blood work (3) Obesity (BMI 30.0-34.9): Code(s): E66.9 - Obesity, unspecified Category: Medical Plan: Healthy diet and regular exercise is encouraged. (4) Right shoulder pain: Comment: 202Minimal supraspinatus tendinosis with distal bursal surface fraying. 2. Otherwise unremarkable examination. Code(s): M25.511 - Pain in right shoulder Category: Medical Plan: Continue to follow with orthopedics currently undergoing cortisone injections for pain management. (5) Varicose veins of bilateral lower extremities with pain: Code(s): I83.813 - Varicose veins of bilateral lower extremities with pain Category: Medical Plan: Surgery is set for chronic venous insufficiency to mitigate leg pain, emphasizing necessary follow-up. Continue to follow with [facility] vascular surgery. (6) Urge incontinence: Code(s): N39.41 - Urge incontinence Category: Medical Plan: Continue on oxybutynin. The schedule for a mesh bladder sling remains in place to manage urinary incontinence following urogynecological guidance. (7) Asthma: Code(s): J45.909 - Unspecified asthma, uncomplicated Category: Medical Qualifiers: Asthma severity: mild Asthma persistence: intermittent Asthma complication type: uncomplicated Qualified Code(s): J45.20 - Mild intermittent asthma, uncomplicated Plan: Asthma currently controlled on present medications. Continue on inhaler. Avoid triggers such as allergies. (8) GERD (gastroesophageal reflux disease): Code(s): K21.9 - Gastro-esophageal reflux disease without esophagitis Category: Medical Qualifiers: Esophagitis presence: without esophagitis Qualified Code(s): K21.9 - Gastro-esophageal reflux disease without esophagitis Plan: Avoid trigger foods such as citrus, tomato products, soda, caffeine, spicy foods and other foods that may be irritating to your stomach. Avoid laying flat 3-4 hours after eating and elevate the head of the bed 30 degrees to prevent acid from moving into the esophagus. Diagnostic esophagogastroduodenoscopy and colonoscopy are planned to grasp GERD impacts (9) Migraine: Code(s): G43.909 - Migraine, unspecified, not intractable, without status migrainosus Category: Medical Plan: Neurology will continue onwards, with an introduction to amitriptyline planned pending migraine consultations. Plan to start on amitriptyline for migraine management and prevention. Plan to follow up in 3 months to evaluate for efficacy or sooner if new problems arise. Plan This note was constructed using voice recognition software. While every effort has been made to ensure accuracy and family service aide, still areas may have been included sometimes these areas may affect the content or meeting of the given symptoms. Total time spent caring for the patient today was 20 minutes. This includes time spent before the visit reviewing the chart, time spent during the visit, and time spent after the visit and documentation. Patient was informed and verbally consented to the use of an ambient scribe for clinic note documentation during this visit. Orders: Referrals Pain Management Referral M54.9 - Dorsalgia, unspecified Medications: New amitriptyline 10 mg PO BEDTIME 90 tabs 0RF Changed From oxybutynin chloride 5 mg PO BEDTIME 90 tabs 1RF To oxybutynin chloride 10 mg PO BEDTIME
[2024-08-19 15:25] VITALS: BP 116/76; PULSE 68; O2SAT 98; BMI 37.9
--- OUTSIDE RECORDS SUMMARY | 2024-08-19 17:09 | XMS_ITS | Continuity of Care Document ---
Author Organization [facility] [employer] Address [address] [place] [address], [place], [place] [address]- Care Team Providers Care Butter Fat Tester Name Role Phone Po Huong CHARLES Primary Care Physician [phone] [facility] [id number] Date(s): 07/09/24 - 08/08/24 [facility] [employer] [address], [address] [place] [address] Attending Physician: Franki Wilder Admitting Physician: Franki Wilder Referring Physician: Franki Wilder Encounter Type: Triage Medications oxybutynin 5 mg oral tablet 0 Refills, Maintenance, 07/09/24 2:34:00 PM EST, Partial fill upon patient request if the prescription is for a schedule II opioid drug. Start Date: 07/09/24 Status: Ordered Repeat number: 1 pantoprazole 40 mg oral delayed release tablet 0 Refills, Maintenance, 07/09/24 2:34:00 PM EST Start Date: 07/09/24 Status: Ordered Repeat number: 1 Vitamin D3 2000 intl units oral capsule 0 Refills, Maintenance, 07/09/24 2:34:00 PM EST, Partial fill upon patient request if the prescription is for a schedule II opioid drug. Start Date: 07/09/24 Status: Ordered Repeat number: 1 Problem List Condition Confirmation Course Effective Dates Status Health St atus Informant Anxiety Confirmed Active Asthma Confirmed Active Cervical disc herniation Confirmed Active GERD (gastroesophageal reflux disease) Confirmed Active Obesity Confirmed Active Plantar fascial fibromatosis Confirmed Active Rotator cuff tear, left Confirmed Active Severe obesity (BMI 35.0-39.9) with comorbidity Confirmed Active Social History Social History Type Response Smoking Status 10 or more cigarette s (1/2 pack or more)/day in last 30 days entered on: 07/09/24 Sex Sex Representation Female (finding) Laboratory * Event Display: Non BH Lab Results Authored Date: Radiology * Event Display: Ultrasound Pelvis, Non-BH Authored Date: Patient Care team information Care Team Personnel Name: Huong Major MD Position: Reference Physician Member Role: PCP Address: [address] [place] [address] Telecom: Care Team Related Persons Name: JOSE BEARD Name: LISHA BEARD Insurance Providers Guarantor name: SB BEARD Health Plan Information #: 1 Payer: [employer] ELECT Member Number: NA Policy Number: NA Group Number: NA
--- OUTSIDE RECORDS SUMMARY | 2024-08-19 17:09 | XMS_ITS | Continuity of Care Document ---
Author Organization [facility] Address [address] [place] [address]- Care Team Providers Care Finisher Merchant Products Name Role Phone Huong Major MD Primary Care Physician [id number] Date(s): 07/25/24 - 08/01/24 [facility] [address] [place], [place] [address] Attending Physician: Huong Major MD Admitting Physician: Huong Major MD Referring Physician: Huong Major MD Encounter Type: One Time OP Medications oxybutynin 5 mg oral tablet 0 [...] Active GERD (gastroesophageal reflux disease) Confirmed Active Obese class II Confirmed Active Obesity Confirmed Active Plantar fascial fibromatosis Confirmed Active Rotator cuff tear, left Confirmed Active Social History Social History Type Response Smoking Status 10 or more cigarette s (1/2 pack or more)/day in last 30 days entered on: 07/09/24 Sex Sex Representation Female (finding) Cardiology * Event Display: VL Venous Dup Scan Venous Insuf MONICA Oleary Authored Date: [id number] Demographics Procedure Information Patient name: CHIRAG BASURTO Procedure date: 07/25/2024 8:00 AM Corporate Proc. sub type: Veins: Lower Extremities Venous Insufficiency, Venous Duplex Scan Gender: Female Venous Insuf MONICA Hagerat. Date of : 1980 Accession No: [id number] Age: 44 year(s) Account No: [id number] Admit Status: Outpatient Procedure Staff Probe: L9-3 Attending Physician: Huong Major MD Technical quality: Adequate visualization Ordering physician: Jose Hua MD Facility: [facility] - Referring Physician: Jose Hua MD [place] Icing Coater: Ruba Jimenez RVT Study location: [place] Interpreting physician: Alejandra CHARLES Ricah Demetrio Procedure consent obtained: No Indications Varicose Veins Right Lower Extremity with Pain and Varicose Veins Left Lower Extremity with Pain. LE Veins Diagram Right Left The diagram is not intended for diagnosis. It is provided for reference only. LE Venous Insufficiency Findings Right Left AP Reflux AP Reflux DIAM Time DIAM Time Location (mm) (sec) Thrombosis (mm) (sec) Thrombosis Common Femoral 2.31 0 Prox Femoral 0 0 Mid Femoral 0.3 0 Dist Femoral 0 0 Popliteal 0.68 1.42 Right Left AP Reflux AP Reflux DIAM Time DIAM Time Location (mm) (sec) Thrombosis (mm) (sec) Thrombosis Sapheno Femoral Junction 8.1 2.06 7.8 0 GSV High Thigh 5.3 2.15 4.2 1.33 GSV Mid Thigh 3.9 1.16 4 0.98 GSV Low Thigh 4.6 0.48 5.4 1.5 GSV Knee 4.6 1.43 4.6 1.19 GSV High Calf 3 0.8 3.5 0 SSV High Calf 1.7 0 2.1 0.42 SSV Low Calf 2 0.66 1.9 0 GSV B High Thigh 2 GSV B Mid Thigh 3 1.2 GSV B Low Thigh 3 1.3 Physician Conclusions Summary: Right side: There is reflux lasting 2.1 seconds at the high thigh in the Great Saphenous vein. The vein is branching in mid distal thigh and knee. The Great Saphenous Vein does not appear aneurysmal. There is no evidence of deep vein thrombosis in the segments insonated. There is minimal deep vein reflux. The vein has multiple varicose branches in distal portion.. There is reflux lasting 0.6 seconds in the Small Saphenous vein. Area of concern (painful lateral thigh) - small and superficial, spider like veins 0.8 to 1 mm in diameter seen in lateral thigh (proximal to distal). Exam was performed with patient in Reverse Trendelenburg position. Left side: There is reflux lasting 1.5 seconds at the low thigh in the Great Saphenous vein. There is an accessory vein seen coming off the Great Saphenous vein in proximal thigh and running alongside, from proximal to distal medial thigh, with reflux up to 1.3 seconds in distal thigh. The Great Saphenous Vein does not appear aneurysmal. There is no evidence of deep vein thrombosis in the segments insonated. There is minimal deep vein reflux. There is reflux lasting 1.3 seconds in the Small Saphenous vein. Area of concern (painful lateral thigh) - small ,varicose vein seen in mid distal lateral thigh, 1.6 to 1.8 mm in diameter, with reflux 0.4 seconds. Exam was performed with patient in Reverse Trendelenburg position. * Event Display: VL Venous Dup Scan Venous Insuf LE Bilat Authored Date: Patient Care team information Care Team Personnel Name: Huong Major MD Position: Reference Physician Member Role: PCP Address: [address] [place] [address] Telecom: Care Team Related Persons Name: JOSE BEARD Name: LISHA BEARD Insurance Providers Guarantor name: SB BEARD Health Plan Information #: 1 Payer: [employer] Member Number: [id number] Policy Number: NA Group Number: [id number] Health Plan Information #: 2 Payer: [employer] E[employer] Member Number: [id number] Policy Number: NA Group Number: NA
--- OUTSIDE RECORDS SUMMARY | 2024-08-19 17:09 | XMS_ITS | Patient Health Record ---
Author Organization [facility] [place] Address [address] [place] [address] Care Team Providers Care Career Developer Name Role Phone Huong Major Primary Care Provider José Messina Unavailable [phone] Allergies No Known Allergies Reason For Referral [...] Status Risk Notes Problem Plantar fascial fibromatosis (11092317) Plantar fascial fibromatosis (M72.2) Active confirmed Plan Of Treatment Pending Test Test Name Order Date MRI : Ankle, right 07/26/2022 X ray : Foot, right 3V 05/26/2022 [id number] TENDON SHEATH/LIGAMENT 1 07/27/2021 Insurance Providers Payer Name Payer Address Payer Phone Subscriber Number Group Number Insured Name Patient Relationship to Insured Coverage Start Date Coverage End Date [facility] [address] [place] [address] [phone] [id number] Destinee Childs Self - patient is the insured Medical (General) History Medical History History ICD Code asthma Headaches/Migraines Surgical History Surgery Date(Month/Year) heel surgery, heel spur right foot elbow sx, right tubal ligation
--- OUTSIDE RECORDS SUMMARY | 2024-08-19 17:09 | XMS_ITS | Continuity of Care Document ---
Author Organization [facility] Address [address] [place] [id number]- Care Team Providers Care Pricing Director Name Role Phone Huong Major MD Primary Care Physician [phone] [id number] Date(s): 08/06/24 - 08/13/24 [facility] [address] [place] [address]- Attending Physician: Jose Hua MD Admitting Physician: Jose Hua MD Referring Physician: Huong Major MD Encounter Type: Office Visit Medications oxybutynin 5 mg oral tablet 0 [...] obesity (BMI 35.0-39.9) with comorbidity Confirmed Active Vital Signs Most recent to oldest [Reference Range]: 1 Height 157.5 cm (08/06/24 1:45 PM) Weight 93.18 kg (08/06/24 1:45 PM) Oxygen Saturation [94-100 %] 95 % (08/06/24 1:45 PM) Pulse Rate [55-90 bpm] 82 bpm (08/06/24 1:45 PM) Body Mass Index [18.5-24.99 kg/m2] 37.56 kg/m2 *>HHI* (08/06/24 1:45 PM) Blood Pressure [90-138/55-84 mm Hg] 90/7 0mm Hg (08/06/24 1:45 PM) Mode of Delivery (Oxygen) Room air (08/06/24 1:45 PM) Blood pressure sites Arm, left (08/06/24 1:45 PM) Weight Obtained Via Patient/family state d (08/06/24 1:45 PM) Social History Social History Type Response Smoking Status 10 or more cigarette s (1/2 pack or more)/day in last 30 days entered on: 07/09/24 Sex Sex Representation Female (finding) Patient Care team information Care Team Personnel Name: Huong Major MD Position: Reference Physician Member Role: PCP Address: [address] [place] [address] Telecom: Care Team Related Persons Name: JOSE BEARD Name: LISHA BEARD Insurance Providers Guarantor name: SB BEARD Health Plan Information #: 1 Payer: [employer] Member Number: [id number] Policy Number: NA Group Number: [id number] Health Plan Information #: 2 Payer: [employer] E[employer] Member Number: [id number] Policy Number: NA Group Number: NA
== END 2024-08-19 16:17 | disposition home or self-care (01) ==
PROVIDERS: PCP Internal Medicine
DX: M54.9 Dorsalgia, unspecified (principal); E78.00 Pure hypercholesterolemia, unspecified; E66.9 Obesity, unspecified; Z68.37 Body mass index [BMI] 37.0-37.9, adult; M25.511 Pain in right shoulder; I83.813 Varicose veins of bilateral lower extremities with pain; N39.41 Urge incontinence; J45.20 Mild intermittent asthma, uncomplicated; K21.9 Gastro-esophageal reflux disease without esophagitis; G43.909 Migraine, unspecified, not intractable, without status migrainosus

== ENCOUNTER → 2024-08-19 14:58 | Outpatient (BNVA) | payer BC, SELFPAY | PROVIDERS: PCP Internal Medicine | DX: K52.9 Noninfective gastroenteritis and colitis, unspecified (principal); J45.909 Unspecified asthma, uncomplicated; F41.1 Generalized anxiety disorder; G47.33 Obstructive sleep apnea (adult) (pediatric); N39.41 Urge incontinence; G89.29 Other chronic pain; M54.50 Low back pain, unspecified; E78.00 Pure hypercholesterolemia, unspecified; E66.9 Obesity, unspecified; I83.813 Varicose veins of bilateral lower extremities with pain; J45.20 Mild intermittent asthma, uncomplicated; K21.9 Gastro-esophageal reflux disease without esophagitis; G43.909 Migraine, unspecified, not intractable, without status migrainosus; Z68.37 Body mass index [BMI] 37.0-37.9, adult | CPT/HCPCS: 96127 ==

== ENCOUNTER 2024-08-27 08:32 | Day surgery (SDC) | payer BC, SELFPAY ==
[2024-08-23 10:47] VITALS: BMI 38.2
[2024-08-27 08:49] VITALS: BP 125/79; PULSE 84; RESP 20; TEMP 36.1; O2SAT 96; BMI 39.0
--- NOTE | 2024-08-27 09:45 | P.HPSUR_ITS ---
Pre-Procedural Eval Section A - 24 Hr Update-Section A only Date of Service: 08/27/24 Section B - Complete if H&P > 30 days Chief Complaint: GERD, screening Details of Present Illness: Hypersomnia Pelvic floor weakness in female Well woman exam with routine gynecological exam Family history of colon cancer Annual physical exam Painful arc syndrome of right shoulder Breast cancer screening by mammogram Smoker Obesity, morbid, BMI 40.0-49.9 Well woman exam with routine gynecological exam Rotator cuff impingement syndrome of right shoulder Lumbar disc herniation Rotator cuff tear, left Labral tear of left hip joint Wedge compression fracture of T11 vertebra Cervical disc herniation ASCUS of cervix with negative high risk HPV Migraine Tobacco abuse Anxiety Asthma GERD (gastroesophageal reflux disease) Lateral epicondylitis of right elbow Surgical History History of elbow surgery History of tubal ligation History of foot surgery Present Medications: see Short Stay Collaborative assessment Allergies: Allergies Allergy/AdvReac Type Severity Reaction Status Date / Time barium sulfate Allergy Unknown Nightmare Verified 08/19/24 15:26 codeine Allergy Unknown codeine Verified 08/19/24 15:26 phosphate, ITCHY varenicline [From Chantix] Allergy Unknown nightmares Verified 08/19/24 15:26 Review of Systems Review of Systems Comment: Ten point ROS negative Exam Exam Comment: Gen appear: No acute distress HEENT: no icterus Chest: No overt resp distress Abd: soft, nontender, nondistended Psych: Stable affect, answering questions appropriately Neuro: A/Ox3 noted to move all extremities spontaneously Ext: no peripheral edema Plan Diagnosis/Plan: Unchanged I have reviewed the history and physical and performed a pertinent physical examination on my patient. No changes have occurred unless specified. Time Spent With Patient Time: Total time managing care of this patient today ____ minutes.
--- NOTE | 2024-08-27 10:41 | HO.ANESPROP2 ---
HPI - Anesthesia Eval Consult details Narrative: 44 yo female patient for EGD, Colonoscopy PMF Active Problems Active Problems: All Active Problems Mid back pain (Acute) Right hip pain (Acute) Hypercholesterolemia (Acute) Annual physical exam (Acute) Colon cancer screening (Acute) Upper respiratory infection (Acute) - 1 month ago Obesity (BMI 30.0-34.9) (Acute) Left wrist pain (Acute) Mild obstructive sleep apnea (Acute) Stenosis of lacrimal duct (Acute) Vitamin B12 deficiency (Acute) Right shoulder pain (Acute) Bartholin's gland cyst (Acute) ASCUS of cervix with negative high risk HPV (Acute) Varicose veins of bilateral lower extremities with pain (Acute) Urge incontinence (Acute) Hemorrhoid (Acute) Constipation (Acute) Generalized anxiety disorder (Acute) Migraine (Acute) Tobacco abuse (Acute)- Last cigarette this morning Asthma (Acute) GERD (gastroesophageal reflux disease) (Acute) Past Medical History Medical History Annual physical exam Hypersomnia Pelvic floor weakness in female Well woman exam with routine gynecological exam Family history of colon cancer Painful arc syndrome of right shoulder Breast cancer screening by mammogram Smoker Obesity, morbid, BMI 40.0-49.9 Well woman exam with routine gynecological exam Rotator cuff impingement syndrome of right shoulder Lumbar disc herniation Rotator cuff tear, left Labral tear of left hip joint Wedge compression fracture of T11 vertebra Cervical disc herniation ASCUS of cervix with negative high risk HPV Migraine Tobacco abuse Anxiety Asthma GERD (gastroesophageal reflux disease) Lateral epicondylitis of right elbow Family History Family History Mother Depression with anxiety Colon cancer, Onset Age: 50 Myocardial infarction Father No problems noted. Maternal Aunt Breast cancer Myocardial infarction Maternal Uncle Schizophrenia Myocardial infarction Maternal Grandmother Myocardial infarction Paternal Grandmother Myocardial infarction Maternal Grandfather Myocardial infarction Colon cancer Family history of problems with anesthesia: No Surgical History Surgical History History of elbow surgery History of tubal ligation History of foot surgery History of Problems with Anesthesia: No Social History Social History Housing: House Alcohol intake: never Patient Tobacco Use Status: Current everyday Tobacco user Cigarettes Per Day: 10 e-Cigarette/Vaping Use: Never Used service: No Current occupational status: employed 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 Cognitive needs: No Hearing needs: No Vision needs: No Meds Allergies Allergy/AdvReac Type Severity Reaction Status Date / Time barium sulfate Allergy Unknown Nightmare Verified 08/19/24 15:26 codeine Allergy Unknown codeine Verified 08/19/24 15:26 phosphate, ITCHY varenicline [From Chantix] Allergy Unknown nightmares Verified 08/19/24 15:26 Home Medications ?Medication ?Instructions ?Recorded ?Confirmed ?Last Taken ?Type oxybutynin chloride 5 mg tablet 10 mg PO BEDTIME 08/19/24 08/27/24 Unknown History Exam Height,Weight and Vital Signs: Height 5 ft 2 in Weight 96.7 kg Last Vital Signs Temp 96.9 F 08/27/24 08:49 Pulse 84 08/27/24 08:49 Resp 20 08/27/24 08:49 BP 125/79 08/27/24 08:49 Pulse Ox 96 08/27/24 08:49 O2 Del Method Room Air 08/27/24 08:49 Airway Mallampati Class: II TM Dist: >3cm Neck ROM: Full Loose/Missing/Broken Teeth: Yes (Missing wisdom teeth. Broken tooth top left back. Missing tooth top right back. Denies loose teeth) Heart: RRR Lungs: CTAB Assessment and Plan Assessment Anesthesia Assessment: Anesthesia Plan Discussed and Chart Reviewed Final Anesthetic Review Family History of Problems with Anesthesia: No History of Problems with Anesthesia: No NPO: Yes ASA Class: III Final Preanesthetic Review: No Changes in Pt Med Stat, Meds/Allgs Chart Reviewed, Consent Obtained/Reviewed and Anes Risks/Benef Reviewed Patient Risk: Intermediate Procedure Risk: Low Assessment/Block/Sedation in SS: Assess/Block/Sedation-SS Anesthetic Plan Anesthetic Plan: TIVA Disposition: Standard PACU
--- NOTE | 2024-08-27 11:19 | P.OPN-COLO_ITS ---
Colonoscopy Operative Note Operative Note Date of Service: 08/27/24 Narrative: Procedure: Upper endoscopy and colonoscopy Indication: GERD, fam hx of CRC Endoscopist: Alethea Schmitt MD Anesthesia Provider: Dr Daja Brock Anesthesia type: MAC Instrument: [id number] and [id number]-[id number] EGD Procedure:?? The procedure, indications, preparation and potential complications were reviewed with the patient, who indicated understanding and gave written informed consent to proceed. The endoscope was introduced through the mouth, and advanced to the 2nd part of the duodenum. The mucosa was carefully examined on slow withdrawal of the endoscope. The patient tolerated the procedure well. There were no immediate complications.? EGD Findings:? * Esophagus:? Erythema and ulceration at the GE junction > 5 mm. The Z-line was at 32 cm displaced upwards by a hiatal hernia with the Z line at 34 cm. Cold forceps biopsies were taken from middle and lower esophagus to rule out eosinophilic esophagitis. * Stomach:? Erythema erosions and scant heme in fundus and antrum. Retroflexion was performed in the cardia that showed Hill grade III hiatal hernia. Random cold forceps biopsies were taken from the stomach. * Duodenum:? Normal duodenal mucosa. Colonoscopy Procedure:? The patient was then turned for the colonoscopy. A digital rectal exam was performed which was normal.? A distal attachment cap was affixed to the tip of the scope and the colonoscope was then inserted through the anus and advanced through the colon and advanced to the cecum at 75 cm and terminal ileum.? Appendiceal orifice and ileocecal valve were identified. Mucosa was carefully examined under high definition white light as the instrument was slowly withdrawn in a retrograde panoramic fashion. Retroflexion was performed in ascending colon and rectum. The procedure was not difficult. The quality of the prep was BBPS: 2+3+3 = adequate Withdrawal time 6 minutes Limitations: No limitations Findings: Mucosa: Normal colon and terminal ileum mucosa. Protruding lesions: * Small internal hemorrhoids without stigmata of recent bleeding. Excavated lesions: * Moderate to severe diverticulosis of whole colon. Impression: 1. Grade B esophagitis 2. Gastritis 3. Hiatal hernia 4. Normal duodenum 5. Normal colon and terminal ileum mucosa 6. Diverticulosis 7. Internal hemorrhoids Recommendations:?? * Follow-up path results * Start omeprazole 20 mg BID x 8 weeks and then once daily * Use wedge pillow at night to prevent reflux * Avoid NSAIDs * H Pylori treatment if biopsies + * Repeat colonoscopy for CRC screening in 5 years due to family history
[2024-08-27 11:24] VITALS: BP 101/59; PULSE 95; RESP 20; TEMP 36.5; O2SAT 95
[2024-08-27] MEDS: Lactated Ringers 1,000 ML 100 ML IVCONT (11:24)
[2024-08-27 11:39] VITALS: BP 122/72; PULSE 97; RESP 20; O2SAT 98
[2024-08-27 11:54] VITALS: BP 118/46; PULSE 86; RESP 17; O2SAT 98
[2024-08-27] MEDS: Acetaminophen 325 MG TABLET 650 MG PO (12:00)
[2024-08-27] MEDS: ondansetron HCL 4 MG/2 ML VIAL IVPUSH (12:00)
[2024-08-27 12:04] VITALS: BP 125/80; PULSE 86; RESP 18; O2SAT 98
[2024-08-27 12:23] VITALS: TEMP 36.8
== END 2024-08-27 12:36 | disposition home or self-care (01) ==
PROVIDERS: PCP Internal Medicine; Visit Provider Internal Medicine
PROC: (CPT 45378; principal; 2024-08-27 10:10)
DX: Z12.11 Encounter for screening for malignant neoplasm of colon (principal); Z80.0 Family history of malignant neoplasm of digestive organs; K57.30 Diverticulosis of large intestine without perforation or abscess without bleeding; K64.8 Other hemorrhoids; K59.01 Slow transit constipation; R14.0 Abdominal distension (gaseous); K21.9 Gastro-esophageal reflux disease without esophagitis; K20.80 Other esophagitis without bleeding; K29.50 Unspecified chronic gastritis without bleeding; K44.9 Diaphragmatic hernia without obstruction or gangrene; J45.909 Unspecified asthma, uncomplicated; G47.10 Hypersomnia, unspecified; G47.33 Obstructive sleep apnea (adult) (pediatric); E55.9 Vitamin D deficiency, unspecified; E66.01 Morbid (severe) obesity due to excess calories; Z68.38 Body mass index [BMI] 38.0-38.9, adult; Z79.899 Other long term (current) drug therapy; Z88.5 Allergy status to narcotic agent; Z88.8 Allergy status to other drugs, medicaments and biological substances; Z98.890 Other specified postprocedural states; F17.210 Nicotine dependence, cigarettes, uncomplicated
CPT/HCPCS: 45378; 43239; 88305; 88313; 88342; J1596; J2003; J2405; J2704

== ENCOUNTER → 2024-08-27 08:32 | Outpatient (BNV) | payer BC, SELFPAY | PROVIDERS: PCP Internal Medicine; Visit Provider Internal Medicine | DX: Z12.11 Encounter for screening for malignant neoplasm of colon (principal); Z80.0 Family history of malignant neoplasm of digestive organs; K57.30 Diverticulosis of large intestine without perforation or abscess without bleeding; K64.8 Other hemorrhoids; K21.00 Gastro-esophageal reflux disease with esophagitis, without bleeding; K29.70 Gastritis, unspecified, without bleeding | CPT/HCPCS: 43239; 45378 ==

== ENCOUNTER 2024-08-30 08:37 | Outpatient (REF) | payer BC, SELFPAY | END 2024-08-30 08:38 | disposition home or self-care (01) | LOC: HO.HOSX 08:37 | PROVIDERS: Visit Provider Physician Assistant | DX: Z13.89 Encounter for screening for other disorder (principal) ==

== ENCOUNTER 2024-09-05 14:30 | Outpatient (AMB) | payer BC, SELFPAY ==
--- NOTE | 2024-09-05 14:34 | A.OFFVIS_ITS ---
Vital Signs 09/05/24 14:39 Height 5 ft 2 in Weight 207 lb BMI 37.9 BP 139/74 Blood Pressure Location Lt brachial Position Sitting Pulse 75 Pulse Source Pulse Oximeter Pulse Oximetry (%) 97 Oxygen Delivery Method Room Air Intake Visit Reasons: Dorsalgia, unspecified Intake Note: Pain today 12/19 Administrative Services Specialist Required: No Accompanied by: Self / Same As Patient Allergies barium sulfate Allergy (Unknown, Verified 09/05/24 14:39) Nightmare codeine Allergy (Unknown, Verified 09/05/24 14:39) codeine phosphate, ITCHY varenicline [From Chantix] Allergy (Unknown, Verified 09/05/24 14:39) nightmares HPI HPI Dorsalgia, unspecified: Details: The patient is a pleasant 44-year-old female presenting with chronic lower back pain and lumbar radiculopathy. Chronic lower back pain commenced following a fall, resulting in a T11 compression fracture and coccyx fracture per patient. Initial care included physical therapy and epidural injections for lumbar disc herniation at L5-S1 level on the left side while patient was residing in [place]. The pain persists, described as a pressure-like and pulling sensation radiating to the right hip and occasionally down the right leg laterally. Exacerbating factors: positional changes, bending, and standing. Previous interventions include PT, massage, chiropractic therapy, TENS unit and back injections, but surgery was declined. Other concerns include chronic urinary incontinence, managed by Urology. Functionally, pain affects daily activities and sleep. Patient also has recently underwent vascular surgery 08/06/24 [facility] for varicose veins recommending bilateral GSV ablation and stab phlebectomies per PCP referral notes. Denies any fever or chills, weakness, footdrop, bowel dysfunction or saddle anesthesia. - Onset and Timing: Started in 2019 following a fall; current pain level at 8/10. - Quality and Character: Pressure-like, pulling, shooting, stabbing, throbbing, radiating, spasming sensations. - Primary Location: Lower back. - Radiation: Right lateral hip; sometimes radiates down the right leg in L5 distribution. - Exacerbating Factors: Sitting to standing, bending, prolonged standing or walking; weather changes. - Relieving Factors: Stretches and specialized pillows at night. TENS unit. Ibuprofen, meloxicam, tizanidine, lidocaine patches. - Interference: Affects daily activities, work function, and sleep. - Affect: Patient reports chronic pain adversely affecting daily living and sleep, with heightened stress. - Analgesia: Current pain level at 8/10; medications include ?s ibuprofen and prescribed meloxicam for wrist pain. Also takes tizanidine, lidocaine patches, and utilizes TENS unit and heat therapy. - Adverse Effects: No specified adverse effects noted from current pain management. - Activities of Daily Living: Pain inhibits ease of movement and sleep quality; however, she attempts regular walking exercises. - Aberrant Drug-Related Behaviors: Reports occasional use of ?s ibuprofen for severe pain. [facility] Medical History Annual physical exam Hypersomnia Pelvic floor weakness in female Well woman exam with routine gynecological exam Family history of colon cancer Painful arc syndrome of right shoulder Breast cancer screening by mammogram Smoker Obesity, morbid, BMI 40.0-49.9 Well woman exam with routine gynecological exam Rotator cuff impingement syndrome of right shoulder Lumbar disc herniation Rotator cuff tear, left Labral tear of left hip joint Wedge compression fracture of T11 vertebra Cervical disc herniation ASCUS of cervix with negative high risk HPV Migraine Tobacco abuse Anxiety Asthma GERD (gastroesophageal reflux disease) Lateral epicondylitis of right elbow Surgical History History of elbow surgery History of tubal ligation History of foot surgery Family History Mother Depression with anxiety Colon cancer, Onset Age: 50 Myocardial infarction Father No problems noted. 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 - Urological: Reports urinary incontinence. - Musculoskeletal: Reports chronic back pain, right hip pain. - Sleep: Reports frequent waking due to pain. Sleeps 4-4.5 hours/night. All systems reviewed & are unremarkable except as noted in HPI and below Physical Exam Vital Signs: Last Vital Signs Pulse 75 09/05/24 14:39 BP 139/74 09/05/24 14:39 Pulse Ox 97 09/05/24 14:39 Oxygen Delivery Method Room Air 09/05/24 14:39 BMI result Body Mass Index 37.9 General: Appears afebrile. Alert and oriented. Mood and affect appropriate. Follows and participates in conversation appropriately. Respiratory effort is unlabored. No cough. Able to transition from sit to stand unassisted. Ambulates with bilaterally normal heel strike and toe off, increased pain on the right>left with heel/toes standing. General: Yes no CVA tenderness Back/Spine/Pelvis Other: Limited lumbar ROM due to pain. Normal gait. No limping. Can flex forward to 70- 75 degrees and extend to 5-10 degrees before experiencing lumbar pain. Demonstrates 5/5 strength of quadriceps bilaterally as well as flexion/dorsiflexion of bilateral feet against resistance. 2+ pedal pulses bilaterally. Straight leg rise with dorsiflexion positive on the right. +2 patellar and achilles reflexes bilaterally. Facet loading test positive bilaterally. Geoffrey sign, Dillon?s, Gaenslen, Pelvic compression and Stinchfield tests are positive bilaterally. Mild to moderate groin pain with right I/E hip rotations. Valsalva maneuver is negative. Back: no CVA tenderness Cervical Spine: cervical ROM normal, cervical muscular tenderness, pain with cervical ROM and No Cervical spine tenderness Thoracic/Lumbar Spine: thoracic and lumbar spine normal to inspection, No Thoracic/lumbar spine scar(s), Lasegue's sign positive on the right, on the left and diffuse, pain with thoraco-lumbar ROM, paraspinal muscle tenderness on the right greater than left, thoraco-lumbar ROM limited, thoracic spinal tenderness (lower spine) and lumbar spinal tenderness (L4-S1) Pelvis: buttock tenderness bilaterally Sacroiliac joints: bilaterally tender to palpation Extrem General: Yes capillary refill normal, Yes no clubbing, cyanosis or edema and Yes no calf tenderness Results Reviewed Results Reviewed: XR LUMBOSACRAL SPINE 10/07/2019 CLINICAL INFORMATION: Lower back pain. COMPARISON: None TECHNIQUE: Three views of the lumbosacral spine. FINDINGS: There is a mild T11 anterior wedge compression fracture. Vertebral body heights and alignment are other normal. The disc spaces are well-maintained. No acute fracture or spondylolisthesis is seen. There is moderate spondylosis at L1-L2. The posterior elements are intact. There is bilateral facet arthropathy at L5-S1. The soft tissues are unremarkable. IMPRESSION: 1. There is an age-indeterminate mild T11 anterior wedge compression fracture. 2. The disc spaces are well-maintained. 3. There is moderate spondylosis at L1-L2. 4. There is bilateral facet arthropathy at L5-S1. Assessment & Plan Assessment & Plan (1) Mid back pain: Code(s): M54.9 - Dorsalgia, unspecified Category: Medical (2) Lumbosacral spondylosis: Code(s): M47.817 - Spondylosis without myelopathy or radiculopathy, lumbosacral region Category: Medical (3) Lumbar radiculopathy: Code(s): M54.16 - Radiculopathy, lumbar region Category: Medical (4) History of compression fracture of spine: Code(s): Z87.81 - Personal history of (healed) traumatic fracture Category: Medical (5) Muscle spasm of back: Code(s): M62.830 - Muscle spasm of back Category: Medical (6) Right hip pain: Code(s): M25.551 - Pain in right hip Category: Medical Plan The patient was advised to proceed with updated spinal imaging to assess the extent of current conditions, assess degree of degenerative changes, any subluxation, listhesis, compression fractures or pars defects. and MRI to assess for neural integrity and compression. Discussed with patient intervention treatment options for chronic back pain such as diagnostic lumbar medial branch blocks followed by consideration for radiofrequency ablation or neuromodulation with Sprint PNS trial contingent on efficacy. The patient is to continue under Urology consultation for urinary incontinence. As meloxicam and tizanidine are already in use, I have prescribed gabapentin for radicular symptoms, emphasizing careful monitoring for potential side effects. Patient was educated on the importance of not combining NSAIDs and was advised to continue her current strategies for managing hip pain ahead of an Orthopedic consultation. All questions and concerns have been answered and patient agreed with the plan. Following imaging, re-evaluation of the comprehensive management plan will occur. Patient was informed and verbally consented to the use of an ambient scribe for clinic note documentation during this visit. Orders: Orders MR lumbar spine wo con Today M47.817 - Spondylosis without myelopathy or radiculopathy, lumbosacral region, M54.16 - Radiculopathy, lumbar region, Z87.81 - Personal history of (healed) traumatic fracture XR lumbar spine 6V w bending Today M47.817 - Spondylosis without myelopathy or radiculopathy, lumbosacral region, M54.16 - Radiculopathy, lumbar region, M54.9 - Dorsalgia, unspecified XR thoracic spine 2V Today M54.9 - Dorsalgia, unspecified Medications: New gabapentin 300 mg PO BID 30 days 60 caps 0RF pain M54.16 - Radiculopathy, lumbar region lidocaine 5% leave on most painful area for up to 12 hrs topically daily; 30 days 30 ea 3RF pain M47.817 - Spondylosis without myelopathy or radiculopathy, lumbosacral region, M54.9 - Dorsalgia, unspecified Refilled tizanidine 4 mg PO TID PRN 90 tabs 0RF muscle spasticity M47.817 - Spondylosis without myelopathy or radiculopathy, lumbosacral region, M54.9 - Dorsalgia, unspecified, M62.830 - Muscle spasm of back Patient Instructions: - Schedule and complete the recommended back x-rays and MRI. - Continue regular consultations with your Urologist for urinary incontinence. - Avoid taking ibuprofen and meloxicam concurrently; adhere to prescribed medications. - Start gabapentin as directed and monitor for any side effects. - Follow up with Orthopedic for right hip pain evaluation and potential interventions. - Maintain exercise regime with caution to avoid exacerbating pain. - Encouraged weight optimization for alf pain relief for back and joint pain. - Ensure adequate nighttime rest and consider reducing coffee intake to support bone health. - Return to the clinic for a follow-up visit once imaging is complete to reassess management plans. Coding Level of Care Code New Pt Level 4 (29920) Complex EM visit Add On G2211 Diagnoses Mid back pain M54.9 Lumbosacral spondylosis M47.817 Lumbar radiculopathy M54.16 History of compression fracture of spine Z87.81 Muscle spasm of back M62.830 Right hip pain M25.551
[2024-09-05 14:39] VITALS: BP 139/74; PULSE 75; O2SAT 97; BMI 37.9
--- OUTSIDE RECORDS SUMMARY | 2024-09-05 18:12 | XMS_ITS | Patient Health Record ---
Author Organization [facility] Address [address] [place] [address] Care Team Providers Care Wheel Grinder Name Role Phone Huong Major Primary Care Provider José Messina Unavailable [phone] Allergies No Known Allergies Reason For Referral [...] Inhalation every 6 hrs Active traMADol HCl Not-Gilebrto ing Social History Tobacco Use: Social History [...] Status Risk Notes Problem Plantar fascial fibromatosis (64753424) Plantar fascial fibromatosis (M72.2) Active confirmed Plan Of Treatment Pending Test Test Name Order Date MRI : Ankle, right 07/26/2022 X ray : Foot, right 3V 05/26/2022 [id number] TENDON SHEATH/LIGAMENT 1 07/27/2021 Insurance Providers Payer Name Payer Address Payer Phone Subscriber Number Group Number Insured Name Patient Relationship to Insured Coverage Start Date Coverage End Date [facility] [address] [place] [address] [id number] Destinee Childs Self - patient is the insured Medical (General) History Medical History History ICD Code asthma Headaches/Migraines Surgical History Surgery Date(Month/Year) heel surgery, heel spur right foot elbow sx, right tubal ligation
== END 2024-09-05 15:16 | disposition home or self-care (01) ==
LOC: HO.PMC 14:31
PROVIDERS: PCP Internal Medicine; Visit Provider Nurse Practitioner Family
DX: M54.9 Dorsalgia, unspecified (principal); M47.817 Spondylosis without myelopathy or radiculopathy, lumbosacral region; M54.16 Radiculopathy, lumbar region; Z87.81 Personal history of (healed) traumatic fracture; M62.830 Muscle spasm of back; M25.551 Pain in right hip
CPT/HCPCS: 99204

== ENCOUNTER 2024-09-05 14:30 | Outpatient (REF) | payer BC, SELFPAY ==
--- NOTE | ~2024-09-05 | XR_ITS ---
CLINICAL HISTORY: M54.9 - Dorsalgia, unspecified 7 views lumbar spine Comparison: None Findings: Normal vertebral body alignment. No acute fractures or dislocation. No significant degenerative change. IMPRESSION: No acute findings. This document has been electronically signed by: Brandyn Rutherford MD on 09/06/2024 09:04:01
--- NOTE | ~2024-09-05 | XR_ITS ---
CLINICAL HISTORY: M25.559 - Pain in unspecified hip 1 view pelvis Comparison: None Findings: No acute fracture or dislocation. No significant degenerative changes. Soft tissues are unremarkable. IMPRESSION: 1. No acute findings. This document has been electronically signed by: Brandyn Rutherford MD on 09/06/2024 09:01:59
--- NOTE | ~2024-09-05 | XR_ITS ---
EXAMINATION: XR THORACIC SPINE CLINICAL INFORMATION: M54.9 - Dorsalgia, unspecified COMPARISON: None available. TECHNIQUE: 3 views of the thoracic spine were obtained. FINDINGS: Mild was a compression deformity in the vertebral bodies of the lower thoracic spine. Marginal osteophyte formation at L1-2. No acute cortical disruption or gross malalignment. No lytic or blastic lesions. XR/XR thoracic spine 2V IMPRESSION: Mild to moderate multilevel thoracic spondylosis. Electronically signed by: Rui Zhu MD 09/05/2024 04:28 PM EDT
== END 2024-09-05 14:31 | disposition home or self-care (01) ==
LOC: HO.XRAY 14:30
PROVIDERS: Absent Provider Physician Assistant; PCP Internal Medicine; Visit Provider Nurse Practitioner Family
DX: M47.817 Spondylosis without myelopathy or radiculopathy, lumbosacral region (principal); M54.9 Dorsalgia, unspecified; M54.16 Radiculopathy, lumbar region; M25.559 Pain in unspecified hip
CPT/HCPCS: 72070; 72114; 72170

== ENCOUNTER → 2024-09-05 15:26 | Outpatient (BNV) | payer BC, SELFPAY | PROVIDERS: Absent Provider Physician Assistant; PCP Internal Medicine; Visit Provider Radiology Diagnostic Radiology | DX: M54.9 Dorsalgia, unspecified (principal); M25.551 Pain in right hip; M25.552 Pain in left hip | CPT/HCPCS: 72070; 72114; 72170 ==

== ENCOUNTER → 2024-09-23 16:20 | Outpatient (BNV) | payer BC, SELFPAY | PROVIDERS: PCP Internal Medicine; Visit Provider Radiology Diagnostic Radiology | DX: M51.26 Other intervertebral disc displacement, lumbar region (principal); M54.16 Radiculopathy, lumbar region | CPT/HCPCS: 72148 ==

== ENCOUNTER 2024-09-23 16:35 | Outpatient (REF) | payer BC, SELFPAY ==
--- NOTE | ~2024-09-23 | MR_ITS ---
EXAMINATION: MR LUMBAR SPINE WITHOUT CONTRAST CLINICAL INFORMATION: Spondylosis without myelopathy or radiculopathy. COMPARISON: None available. TECHNIQUE: MRI of the lumbar spine was obtained using routine sequences without contrast. FINDINGS: Last rib-bearing vertebra labeled T12. No bone marrow STIR signal abnormality. Focal hyperintense T2 STIR signal in the posterior intervertebral disc L5-S1 likely focal annular fissure. Multilevel marginal osteophyte formation and disc desiccation more conspicuous at T10-11, T11-12 and L1-2 levels. Focal intrinsic hyperintense T1 signal posterior left vertebral body of T12 likely intraosseous hemangioma. The alignment is normal. Conus medullaris ends at inferior endplate of T12 with normal signal. Mild wedge-shaped compression deformity representing 20% volume loss at T11 and T12. T12-L1: No disc herniation. No neuroforamina stenosis. L1-2: Broad-based disc bulging. Facet joint hypertrophy. No compression upon neural elements. L2-3: Broad-based disc bulging. Facet joint hypertrophy. No compression upon neural elements. L3-4: Broad-based disc bulging. Facet joint and ligamentum flavum hypertrophy. No compression upon neural elements. L4-5: Broad-based disc bulging. Facet joint and ligamentum flavum hypertrophy. Reduced AP diameter of the thecal sac and neuroforamina. There is a 6 mm hyperintense T2 fluid signal characteristic abnormality in the posterior right L4-5 facet joint. L5-S1: There is a Central broad-based disc herniation. Facet joint and ligamentum flavum hypertrophy. There is central spinal canal stenosis encroaching the S1, bilaterally. Bilateral facet joint narrowing on a degenerative basis. There is a 6 mm fluid signal characteristic abnormality in the lateral right L5-S1 facet joint.. Fatty atrophy of the lower lumbar muscles from L5 to the sacrum. No prevertebral compartment hematoma, mass or fluid collection. Focal hyperintense T2 cystic lesion at the corticomedullary junction, left kidney. MR/MR lumbar spine wo con IMPRESSION: Broad-based central disc herniation L5-S1 encroaching the S1 nerve roots, bilaterally. Multilevel thoracolumbar spondylosis. Small synovial facet joint cysts, posterior L4-5 and L5-S1 without compression nerve roots. Electronically signed by: Rui Zhu MD 09/24/2024 08:05 AM EDT
--- OUTSIDE RECORDS SUMMARY | 2024-09-23 18:30 | XMS_ITS | Patient Health Record ---
Author Organization [facility] tyrone [place] Address [address] [place] [address] Care Team Providers Care Aircraft Maintenance Manager Name Role Phone Huong Major Primary Care Provider José Messina Unavailable [phone] Allergies No Known Allergies Reason For Referral [...] Status Risk Notes Problem Plantar fascial fibromatosis ([id number]) Plantar fascial fibromatosis (M72.2) Active confirmed Plan Of Treatment Pending Test Test Name Order Date MRI : Ankle, right 07/26/2022 X ray : Foot, right 3V 05/26/2022 [id number] TENDON SHEATH/LIGAMENT 1 07/27/2021 Insurance Providers Payer Name Payer Address Payer Phone Subscriber Number Group Number Insured Name Patient Relationship to Insured Coverage Start Date Coverage End Date [facility] [address] [place] [address] [id number] Destinee Childs Self - patient is the insured Medical (General) History Medical History History ICD Code asthma Headaches/Migraines Surgical History Surgery Date(Month/Year) heel surgery, heel spur right foot elbow sx, right tubal ligation
== END 2024-09-23 16:36 | disposition home or self-care (01) ==
LOC: HO.MRI 16:35
PROVIDERS: PCP Internal Medicine; Visit Provider Nurse Practitioner Family
DX: M47.817 Spondylosis without myelopathy or radiculopathy, lumbosacral region (principal); M54.16 Radiculopathy, lumbar region; Z87.81 Personal history of (healed) traumatic fracture
CPT/HCPCS: 72148

== ENCOUNTER 2024-09-24 09:54 | Outpatient (REF) | payer BC, SELFPAY ==
--- OUTSIDE RECORDS SUMMARY | 2024-09-25 11:16 | XMS_ITS | Patient Health Record ---
Author Organization [facility] tyrone [place] Address [address] [place] [address] Care Team Providers Care Nurse Healthcare Manager Name Role Phone Huong Major Primary Care Provider José Messina Unavailable [phone] Allergies No Known Allergies Reason For Referral [...] Status Risk Notes Problem Plantar fascial fibromatosis ([id number]) Plantar fascial fibromatosis (M72.2) Active confirmed Plan Of Treatment Pending Test Test Name Order Date MRI : Ankle, right 07/26/2022 X ray : Foot, right 3V 05/26/2022 [id number] TENDON SHEATH/LIGAMENT 1 07/27/2021 Insurance Providers Payer Name Payer Address Payer Phone Subscriber Number Group Number Insured Name Patient Relationship to Insured Coverage Start Date Coverage End Date [facility] [address] [place] [address] [id number] Destinee Childs Self - patient is the insured Medical (General) History Medical History History ICD Code asthma Headaches/Migraines Surgical History Surgery Date(Month/Year) heel surgery, heel spur right foot elbow sx, right tubal ligation
== END 2024-09-24 09:55 | disposition home or self-care (01) ==
LOC: HO.HOSX 09:54
PROVIDERS: Visit Provider Physician Assistant
DX: Z13.89 Encounter for screening for other disorder (principal)

== ENCOUNTER 2024-10-15 14:25 | Outpatient (AMB) | payer BC, SELFPAY ==
--- NOTE | 2024-10-15 14:30 | A.OFFVIS_ITS ---
Vital Signs 10/15/24 14:34 Height 5 ft 2 in Weight 200 lb BMI 36.6 BP 132/64 Blood Pressure Location Rt brachial Position Sitting Pulse 72 Pulse Source Pulse Oximeter Pulse Oximetry (%) 98 Oxygen Delivery Method Room Air Intake Visit Reasons: Discuss MRI Results Intake Note: Pain today 9/10 Technical Aide Required: No Accompanied by: Self / Same As Patient Allergies barium sulfate Allergy (Unknown, Verified 10/15/24 14:34) Nightmare codeine Allergy (Unknown, Verified 10/15/24 14:34) codeine phosphate, ITCHY varenicline [From Chantix] Allergy (Unknown, Verified 10/15/24 14:34) nightmares HPI Comments Details: Patient presents today for follow up to discuss recent lumbar spine MRI results. The back pain is severe, rated as 9/10, and has been accompanied by radiating pain to the right leg over several months. The patient's pain intensifies with activities such as standing or doing household tasks and improves with gabapentin. Ergonomic changes at her workplace have been implemented to help alleviate her symptoms during work hours. Denies any recent cough, cold, infection, fever or any significant changes in medical history since last office visit. Denies any changes to medications, medical history or recent hospitalizations. PRIOR: The patient is a pleasant 44-year-old female presenting with chronic lower back pain and lumbar radiculopathy. Chronic lower back pain commenced following a 2019 fall, resulting in a T11 compression fracture and coccyx fracture per patient. Initial care included physical therapy and epidural injections for lumbar disc herniation at L5-S1 level on the left side while patient was residing in [place]. The pain persists, described as a pressure-like and pulling sensation radiating to the right hip and occasionally down the right leg laterally. Exacerbating factors: positional changes, bending, and standing. Previous interventions include PT, massage, chiropractic therapy, TENS unit and back injections, but surgery was declined. Other concerns include chronic urinary incontinence, managed by Urology. Functionally, pain affects daily activities and sleep. Patient also has recently underwent vascular surgery 08/06/24 at [facility] for varicose veins recommending bilateral GSV ablation and stab phlebectomies per PCP referral notes. Denies any fever or chills, weakness, footdrop, bowel dysfunction or saddle anesthesia. - Onset and Timing: Started in 2019 following a fall; current pain level at 8/10. - Quality and Character: Pressure-like, pulling, shooting, stabbing, throbbing, radiating, spasming sensations. - Primary Location: Lower back. - Radiation: Right lateral hip; sometimes radiates down the right leg in L5 distribution. - Exacerbating Factors: Sitting to standing, bending, prolonged standing or walking; weather changes. - Relieving Factors: Stretches and specialized pillows at night. TENS unit. Ibuprofen, meloxicam, tizanidine, lidocaine patches. - Interference: Affects daily activities, work function, and sleep. - Affect: Patient reports chronic pain adversely affecting daily living and sleep, with heightened stress. - Analgesia: Current pain level at 8/10; medications include ?s ibuprofen and prescribed meloxicam for wrist pain. Also takes tizanidine, lidocaine patches, and utilizes TENS unit and heat therapy. - Adverse Effects: No specified adverse effects noted from current pain management. - Activities of Daily Living: Pain inhibits ease of movement and sleep quality; however, she attempts regular walking exercises. - Aberrant Drug-Related Behaviors: Reports occasional use of ?s ibuprofen for severe pain. [facility] Medical History Annual physical exam Hypersomnia Pelvic floor weakness in female Well woman exam with routine gynecological exam Family history of colon cancer Painful arc syndrome of right shoulder Breast cancer screening by mammogram Smoker Obesity, morbid, BMI 40.0-49.9 Well woman exam with routine gynecological exam Rotator cuff impingement syndrome of right shoulder Lumbar disc herniation Rotator cuff tear, left Labral tear of left hip joint Wedge compression fracture of T11 vertebra Cervical disc herniation ASCUS of cervix with negative high risk HPV Migraine Tobacco abuse Anxiety Asthma GERD (gastroesophageal reflux disease) Lateral epicondylitis of right elbow Surgical History History of elbow surgery History of tubal ligation History of foot surgery Family History Mother Depression with anxiety Colon cancer, Onset Age: 50 Myocardial infarction Father No problems noted. 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 FINDINGS: There is a mild T11 anterior wedge compression fracture. Vertebral body heights and alignment are other normal. The disc spaces are well-maintained. No acute fracture or spondylolisthesis is seen. There is moderate spondylosis at L1-L2. The posterior elements are intact. There is bilateral facet arthropathy at L5-S1. The soft tissues are unremarkable. IMPRESSION: 1. There is an age-indeterminate mild T11 anterior wedge compression fracture. 2. The disc spaces are well-maintained. 3. There is moderate spondylosis at L1-L2. 4. There is bilateral facet arthropathy at L5-S1. MR LUMBAR SPINE WITHOUT CONTRAST 09/23/24 CLINICAL INFORMATION: Spondylosis without myelopathy or radiculopathy. FINDINGS: Last rib-bearing vertebra labeled T12. No bone marrow STIR signal abnormality. Focal hyperintense T2 STIR signal in the posterior intervertebral disc L5-S1 likely focal annular fissure. Multilevel marginal osteophyte formation and disc desiccation more conspicuous at T10-11, T11-12 and L1-2 levels. Focal intrinsic hyperintense T1 signal posterior left vertebral body of T12 likely intraosseous hemangioma. The alignment is normal. Conus medullaris ends at inferior endplate of T12 with normal signal. Mild wedge-shaped compression deformity representing 20% volume loss at T11 and T12. T12-L1: No disc herniation. No neuroforamina stenosis. L1-2: Broad-based disc bulging. Facet joint hypertrophy. No compression upon neural elements. L2-3: Broad-based disc bulging. Facet joint hypertrophy. No compression upon neural elements. L3-4: Broad-based disc bulging. Facet joint and ligamentum flavum hypertrophy. No compression upon neural elements. L4-5: Broad-based disc bulging. Facet joint and ligamentum flavum hypertrophy. Reduced AP diameter of the thecal sac and neuroforamina. There is a 6 mm hyperintense T2 fluid signal characteristic abnormality in the posterior right L4-5 facet joint. L5-S1: There is a Central broad-based disc herniation. Facet joint and ligamentum flavum hypertrophy. There is central spinal canal stenosis encroaching the S1, bilaterally. Bilateral facet joint narrowing on a degenerative basis. There is a 6 mm fluid signal characteristic abnormality in the lateral right L5-S1 facet joint.. Fatty atrophy of the lower lumbar muscles from L5 to the sacrum. No prevertebral compartment hematoma, mass or fluid collection. Focal hyperintense T2 cystic lesion at the corticomedullary junction, left kidney. IMPRESSION: Broad-based central disc herniation L5-S1 encroaching the S1 nerve roots, bilaterally. Multilevel thoracolumbar spondylosis. Small synovial facet joint cysts, posterior L4-5 and L5-S1 without compression nerve roots. Assessment & Plan Assessment & Plan (1) Lumbosacral spondylosis: Code(s): M47.817 - Spondylosis without myelopathy or radiculopathy, lumbosacral region Category: Medical (2) Lumbar radiculopathy: Code(s): M54.16 - Radiculopathy, lumbar region Category: Medical (3) Muscle spasm of back: Code(s): M62.830 - Muscle spasm of back Category: Medical Plan For the management of axial low back pain, we will proceed with diagnostic lumbar medial branch blocks to assess the potential for enhanced relief through nerve stimulation or ablation, focused on the arthritic component. We also discussed conservative measures, including right L5-S1 TFESI injections for right sided radiculopathy, which is consistent with patient's ongoing symptoms and recent MRI findings. Patient would like to address axial low back pain as initial steps. Schedule Bilateral Diagnostic L3-L4 DR L5 MBB with local and fluoroscopy. Expectations, risks and benefits were reviewed. Patient is aware she will be contacted to schedule this procedure. Ergonomic adjustments that have shown moderate success will continue to be combined with pharmacological management with gabapentin. All questions and concerns have been answered and patient agreed with the plan. Follow up after injections and sooner as needed. Patient was informed and verbally consented to the use of an ambient scribe for clinic note documentation during this visit. Medications: Refilled gabapentin 300 mg PO BID 30 days 60 caps 0RF pain M54.16 - Radiculopathy, lumbar region Patient Instructions: - Continue taking gabapentin as prescribed. - Monitor and record pain levels with activities and after diagnostic injections. - Maintain ergonomic adjustments at work. - Follow up with the office if pain worsens or new symptoms arise. - Schedule the diagnostic lumbar medial branch block as discussed. - Seek medical attention if encountering severe pain, numbness, or weakness worsening. Coding Level of Care Code Est Pt Level 4 (18111) Complex EM visit Add On G2211 Diagnoses Lumbosacral spondylosis M47.817 Lumbar radiculopathy M54.16 Muscle spasm of back M62.830
[2024-10-15 14:34] VITALS: BP 132/64; PULSE 72; O2SAT 98; BMI 36.6
--- OUTSIDE RECORDS SUMMARY | 2024-10-15 15:41 | XMS_ITS | Patient Health Record ---
Author Organization [facility] tyrone [place] Address [address] [place] [address] Care Team Providers Care Finishing Lab Technician Name Role Phone Huong Major Primary Care Provider José Messina Unavailable [phone] Allergies No Known Allergies Reason For Referral [...] Status Risk Notes Problem Plantar fascial fibromatosis ([id number]) Plantar fascial fibromatosis (M72.2) Active confirmed Plan Of Treatment Pending Test Test Name Order Date MRI : Ankle, right 07/26/2022 X ray : Foot, right 3V 05/26/2022 [id number] TENDON SHEATH/LIGAMENT 1 07/27/2021 Insurance Providers Payer Name Payer Address Payer Phone Subscriber Number Group Number Insured Name Patient Relationship to Insured Coverage Start Date Coverage End Date [facility] [address] [place] [address] [id number] Destinee Childs Self - patient is the insured Medical (General) History Medical History History ICD Code asthma Headaches/Migraines Surgical History Surgery Date(Month/Year) heel surgery, heel spur right foot elbow sx, right tubal ligation
== END 2024-10-15 14:57 | disposition home or self-care (01) ==
PROVIDERS: PCP Internal Medicine; Visit Provider Nurse Practitioner Family
DX: M47.817 Spondylosis without myelopathy or radiculopathy, lumbosacral region (principal); M54.16 Radiculopathy, lumbar region; M62.830 Muscle spasm of back
CPT/HCPCS: 99214

== ENCOUNTER → 2024-10-15 14:25 | Outpatient (BNVA) | payer BC, SELFPAY | PROVIDERS: PCP Internal Medicine; Visit Provider Nurse Practitioner Family ==

== ENCOUNTER 2024-10-17 07:50 | Outpatient (AMB) | payer BC, SELFPAY ==
--- OUTSIDE RECORDS SUMMARY | 2024-10-17 07:52 | XMS_ITS | Patient Health Record ---
Author Organization [facility] tyrone [place] Address [address] [place] [address] Care Team Providers Care Global Cmo Name Role Phone Huong Major Primary Care Provider José Messina Unavailable [phone] Allergies No Known Allergies Reason For Referral [...] Status Risk Notes Problem Plantar fascial fibromatosis ([id number]) Plantar fascial fibromatosis (M72.2) Active confirmed Plan Of Treatment Pending Test Test Name Order Date MRI : Ankle, right 07/26/2022 X ray : Foot, right 3V 05/26/2022 [id number] TENDON SHEATH/LIGAMENT 1 07/27/2021 Insurance Providers Payer Name Payer Address Payer Phone Subscriber Number Group Number Insured Name Patient Relationship to Insured Coverage Start Date Coverage End Date [facility] [address] [place] [address] [id number] Destinee Childs Self - patient is the insured Medical (General) History Medical History History ICD Code asthma Headaches/Migraines Surgical History Surgery Date(Month/Year) heel surgery, heel spur right foot elbow sx, right tubal ligation
[2024-10-17 07:57] VITALS: BP 122/72; BMI 36.6
--- NOTE | 2024-10-17 07:57 | A.OFFVIS_ITS ---
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 No complaints. Last Pap/HPV was negative in 05/04 Last Mammogram was BI-RADS 1 in 12/03 [facility] Medical History Annual physical exam Hypersomnia Pelvic floor weakness in female Well woman exam with routine gynecological exam Family history of colon cancer Painful arc syndrome of right shoulder Breast cancer screening by mammogram Smoker Obesity, morbid, BMI 40.0-49.9 Well woman exam with routine gynecological exam Rotator cuff impingement syndrome of right shoulder Lumbar disc herniation Rotator cuff tear, left Labral tear of left hip joint Wedge compression fracture of T11 vertebra Cervical disc herniation ASCUS of cervix with negative high risk HPV Migraine Tobacco abuse Anxiety Asthma GERD (gastroesophageal reflux disease) Lateral epicondylitis of right elbow Surgical History History of elbow surgery History of tubal ligation History of foot surgery Family History Mother Depression with anxiety Colon cancer, Onset Age: 50 Myocardial infarction Father No problems noted. 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 Cognitive needs: No Hearing needs: No Vision needs: No Female Reproductive History Menstrual Age of Menarche: 15 Date of last menstrual period: 09/24/24 control method: permanent sterilization Date of last pap smear: 04/19/23 Date of Mammogram: 11/13/23 Review of Systems Const All systems reviewed & are unremarkable except as noted in HPI and below Card Reports as per HPI Resp Reports as per HPI GI Reports as per HPI and Reports no additional complaints Reports as per HPI Physical Exam Vital Signs: Last Vital Signs BP 122/72 10/17/24 07:57 BMI result Body Mass Index 36.6 Const General: cooperative, healthy appearing and comfortable Chest Chest palpation & inspection: normal inspection of the chest and normal pa lpation of entire chest wall Breast/axilla inspection: normal inspection of the breasts and normal inspection of the axillae Breast/axilla palpation: normal palpation of the breasts, normal palpation of the axillae and no axillary lymphadenopathy Resp Effort & Inspection: normal respiratory effort Auscultation: clear to auscultation bilaterally Percussion: percussion normal Cardio Palpation: normal PMI Rate: regular rate Rhythm: regular rhythm Heart sounds: no murmurs and no rubs Peripheral pulses: Peripheral pulses 2+ throughout GI Inspection: Yes normal to inspection Palpation (GI): Soft to palpation, nontender, no guarding, not rigid and No hepatosplenomegaly present Percussion: Yes normal to percussion Auscultation: normal bowel sounds Rectal Exam - Female: deferred General: Yes bladder normal to palpation External Female Exam: No lesion Speculum Exam - Vagina: normal appearance of the vagina, normal palpation, normal vaginal discharge and not erythematous Speculum Exam - Cervix: normal appearance of the cervix and normal palpation Bimanual exam- vagina & uterus: normal bimanual exam, normal palpation, uterine size normal, bladder normal to palpation, consistency normal and normal palpation Bimanual Exam- Adnexa, other: normal adnexae, no masses and no tenderness Assessment & Plan Assessment & Plan (1) Well woman exam: Code(s): Z01.419 - Encounter for gynecological examination (general) (routine) without abnormal findings Category: Medical Plan: Cotesting not indicated this year Mammogram ordered for 12/04. Counseled the patient about the recommended dietary allowance of 1000 mg of Calcium & 600 IU of vitamin D. The patient was instructed to perform monthly self-breast exams and to schedule an annual exam in a year; All questions answered and the patient verbalized understanding. Instructed the patient to schedule annual exam in a year Orders: Orders MM tomosynthesis screening BI Today Z12.31 - Encounter for screening mammogram for malignant neoplasm of breast Coding Level of Care Code Est Pt Prev Care 40-64y(29622) Diagnoses Well woman exam Z01.419
== END 2024-10-17 08:15 | disposition home or self-care (01) ==
LOC: HO.HWS 07:50
PROVIDERS: PCP Internal Medicine; Visit Provider Obstetrics & Gynecology
DX: Z01.419 Encounter for gynecological examination (general) (routine) without abnormal findings (principal)
CPT/HCPCS: 99396; 99459

== ENCOUNTER → 2024-10-17 07:50 | Outpatient (BNVA) | payer BC, SELFPAY | PROVIDERS: PCP Internal Medicine; Visit Provider Obstetrics & Gynecology ==

== ENCOUNTER 2024-11-14 06:12 | Outpatient (REF) | payer BC, SELFPAY ==
--- NOTE | ~2024-11-14 | FL_ITS ---
EXAMINATION: FL GUIDANCE ONLY HISTORY: M47.817 - Spondylosis without myelopathy or radiculopathy, lumbosacral... COMPARISON: None available. TECHNIQUE: Fluoroscopy time: 12.6 seconds. Cumulative Dose: 4.5276 mGy. DAP: 0.7202 mGym2 Images: 3. FINDINGS: Multiple fluoroscopic spot films of the lumbar spine demonstrate needles and contrast material in the regions of the bilateral L3-4, L4-5, and L5-S1 facet joints. FL/FL guidance in treatment room IMPRESSION: Fluoroscopy during procedure. Please see procedure report for additional information. Electronically signed by: Sathish Vargas MD 11/14/2024 02:59 PM EDT
--- OUTSIDE RECORDS SUMMARY | 2024-11-14 06:15 | XMS_ITS | Patient Health Record ---
Author Organization [facility] tyrone [place] Address [address] [place] [address] Care Team Providers Care Assessment Counselor Name Role Phone Huong Major Primary Care Provider José Messina Unavailable [phone] Allergies No Known Allergies Reason For Referral [...] Status Risk Notes Problem Plantar fascial fibromatosis ([id number]) Plantar fascial fibromatosis (M72.2) Active confirmed Plan Of Treatment Pending Test Test Name Order Date MRI : Ankle, right 07/26/2022 X ray : Foot, right 3V 05/26/2022 [id number] TENDON SHEATH/LIGAMENT 1 07/27/2021 Insurance Providers Payer Name Payer Address Payer Phone Subscriber Number Group Number Insured Name Patient Relationship to Insured Coverage Start Date Coverage End Date [facility] [address] [place] [address] [id number] Destinee Childs Self - patient is the insured Medical (General) History Medical History History ICD Code asthma Headaches/Migraines Surgical History Surgery Date(Month/Year) heel surgery, heel spur right foot elbow sx, right tubal ligation
== END 2024-11-14 06:13 | disposition home or self-care (01) ==
LOC: CF 06:12
PROVIDERS: Visit Provider Internal Medicine
DX: M47.817 Spondylosis without myelopathy or radiculopathy, lumbosacral region (principal)
CPT/HCPCS: 64493; 64494; J2003; J2795; Q9967

== ENCOUNTER 2024-11-14 13:05 | Outpatient (AMB) | payer BC, SELFPAY ==
[2024-11-14 13:13] VITALS: BP 119/63; PULSE 78; RESP 16; O2SAT 99
--- NOTE | 2024-11-14 13:13 | A.OFFVIS_ITS ---
Vital Signs 11/14/24 13:13 11/14/24 13:35 BP 119/63 136/62 Blood Pressure Location Lt brachial Lt brachial Position Sitting Sitting Respiration 16 16 Pulse 78 71 Pulse Source Pulse Oximeter Pulse Oximeter Pulse Oximetry (%) 99 100 Oxygen Delivery Method Room Air Room Air Intake Visit Reasons: Madan Dx L3-L4-DR-L5 MBB Federal Agent Required: No Allergies barium sulfate Allergy (Unknown, Verified 11/28/24 07:31) Nightmare codeine Allergy (Unknown, Verified 11/28/24 07:31) codeine phosphate, ITCHY varenicline (From Chantix) Allergy (Unknown, Verified 11/28/24 07:31) nightmares Medication List - Last Reconciled 11/14/24 by Soco Apple LPN albuterol sulfate 90 mcg/actuation 2 puffs inhalation Q6H PRN amitriptyline 10 mg PO BEDTIME cholecalciferol (vitamin D3) 100 mcg (2 x 50 mcg (2,000 unit)) PO DAILY gabapentin 300 mg PO BID 30 days hydroxyzine HCl 25 mg PO BID ipratropium-albuterol 0.5 mg-3 mg(2.5 mg base)/3 mL 3 mL inhalation TID PRN ipratropium-albuterol 20-100 mcg/actuation (Combivent Respimat) 1 puff PO Q6H nebulizers (Mini Plus Nebulizer [facility]) As directed omeprazole 20 mg PO BID 90 days oxybutynin chloride 10 mg PO BEDTIME sumatriptan succinate take 1 tab at onset of headache; if no relief, may repeat 1 tab after at least 2 hrs; max = 2 tabs/24 hrs PO tizanidine 4 mg PO TID PRN HPI HPI Madan Dx L3-L4-DR-L5 MBB: Details: Patient presents for scheduled procedure. Denies any recent cough, cold, infection, fever or other significant changes in medical history since last office visit. [facility] Medical History Annual physical exam Hypersomnia Pelvic floor weakness in female Well woman exam with routine gynecological exam Family history of colon cancer Painful arc syndrome of right shoulder Breast cancer screening by mammogram Smoker Obesity, morbid, BMI 40.0-49.9 Well woman exam with routine gynecological exam Rotator cuff impingement syndrome of right shoulder Lumbar disc herniation Rotator cuff tear, left Labral tear of left hip joint Wedge compression fracture of T11 vertebra Cervical disc herniation ASCUS of cervix with negative high risk HPV Migraine Tobacco abuse Anxiety Asthma GERD (gastroesophageal reflux disease) Lateral epicondylitis of right elbow Surgical History History of elbow surgery History of tubal ligation History of foot surgery Family History Mother Depression with anxiety Colon cancer, Onset Age: 50 Myocardial infarction Father No problems noted. 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 The patient was placed in a prone position. The respective lumbosacral area was prepped with chloraprep and draped in sterile fashion. The skin over the target medial branch nerves was anesthetized with 0.5% lidocaine. A 22 gauge 3.5 inch needle was inserted into the target medial branch nerve under fluoroscopic guidance. No paresthesias were elicited with needle placement and aspiration was negative for blood and CSF. Next, 0.2cc of omnipaque 180 was injected to verify positioning. Next 0.5 ml 0.5% ropivicaine was injected (0.5cc total per level). The identical procedure was performed at the remaining levels. The skin was cleansed and a sterile bandage was applied. Following the procedure the patient's vital signs were stable. The patient tolerated the procedure well and no complications were encountered. Following the procedure the patient's vital signs were stable. The patient was discharged home in good condition with post-procedural instructions. Time Out: Immediately prior to the procedure, the following was verbally confirmed that there is a signed consent form and that the correct patient, planned procedure, site and side are consistent with documentation and that necessary equipment and/or blood products are available prior to the start of the case. Complications: none EBL: <5 cc 33431 - with Fluoroscopy (bilateral) 40283 - second level, with Fluoroscopy Procedure code (CPT) selection complete Assessment & Plan Assessment & Plan (1) Lumbosacral spondylosis: Code(s): M47.817 - Spondylosis without myelopathy or radiculopathy, lumbosacral region Category: Medical Plan Patient is status post bilateral diagnostic lower lumbar MBBs. Patient tolerated procedure well and was discharged home in stable condition with discharge instructions. All questions were answered. We will follow-up via telephone or in clinic to assess response to therapy. A follow-up appointment was made during today's visit. b Orders: Orders FL guidance in treatment room 11/14/24 M47.817 - Spondylosis without myelopathy or radiculopathy, lumbosacral region Coding Level of Care Code Procedure Only Diagnoses Lumbosacral spondylosis M47.817 CPT Codes Facet Injection-Lumbar/Sacral - CPT: 17701 - with Fluoroscopy ([id number]) Facet Injection-Lumbar/Sacral - CPT: 81206 - second level, with Fluoroscopy ([id number])
[2024-11-14 13:35] VITALS: BP 136/62; PULSE 71; RESP 16; O2SAT 100
== END 2024-11-14 13:34 | disposition home or self-care (01) ==
LOC: HO.PMCPRC 13:05
PROVIDERS: PCP Internal Medicine; Visit Provider Internal Medicine
DX: M47.817 Spondylosis without myelopathy or radiculopathy, lumbosacral region (principal)
CPT/HCPCS: 64493; 64494

== ENCOUNTER 2024-11-21 14:58 | Outpatient (AMB) | payer BC, SELFPAY ==
--- NOTE | 2024-11-21 15:02 | A.OFFVIS_ITS ---
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 Private Home Required: No Accompanied by: Self / Same As Patient Allergies barium sulfate Allergy (Unknown, Verified 11/21/24 15:05) Nightmare codeine Allergy (Unknown, Verified 11/21/24 15:05) codeine phosphate, ITCHY varenicline [From Chantix] Allergy (Unknown, Verified 11/21/24 15:05) nightmares Medication List - Last Reconciled 11/21/24 by CHANI Salomon albuterol sulfate 90 mcg/actuation 2 puffs inhalation Q6H PRN amitriptyline 10 mg PO BEDTIME cholecalciferol (vitamin D3) 100 mcg (2 x 50 mcg (2,000 unit)) PO DAILY gabapentin 300 mg PO BID 30 days hydroxyzine HCl 25 mg PO BID ipratropium-albuterol 0.5 mg-3 mg(2.5 mg base)/3 mL 3 mL inhalation TID PRN ipratropium-albuterol 20-100 mcg/actuation (Combivent Respimat) 1 puff PO Q6H nebulizers (Mini Plus Nebulizer [facility]) As directed omeprazole 20 mg PO BID 90 days oxybutynin chloride 10 mg PO BEDTIME sumatriptan succinate take 1 tab at onset of headache; if no relief, may repeat 1 tab after at least 2 hrs; max = 2 tabs/24 hrs PO tizanidine 4 mg PO TID PRN HPI Comments Details: Patient presents today to assess response to bilateral diagnostic L3-L4 DR L5 MBB on 11/14/[address] Michaels. Patient reports 0% pain relief since procedure which failed to alleviate her symptoms. Her low back pain, exacerbated by activities and significant enough to disrupt daily functions, radiates to the right lower extremity with associated numbness and tingling. These symptoms, in combination with underlying lumbar and thoracic degenerative changes on MRI, contribute to the complex pain presentation. Patient has been managing her symptoms with tizanidine and gabapentin. She is interested to address her radicular symptoms with right L5- S1 TFESI prior to considering neurosurgical evaluation. Past Procedures: 11/14/24: Bilateral Diagnostic L3-L4-DRL5 MBB- 0% pain relief PRIOR: Patient presents today for follow up to discuss recent lumbar spine MRI results. The back pain is severe, rated as 9/10, and has been accompanied by radiating pain to the right leg over several months. The patient's pain intensifies with activities such as standing or doing household tasks and improves with gabapentin. Ergonomic changes at her workplace have been implemented to help alleviate her symptoms during work hours. Denies any recent cough, cold, infection, fever or any significant changes in medical history since last office visit. Denies any changes to medications, medical history or recent hospitalizations. PRIOR: The patient is a pleasant 44-year-old female presenting with chronic lower back pain and lumbar radiculopathy. Chronic lower back pain commenced following a 2019 fall, resulting in a T11 compression fracture and coccyx fracture per patient. Initial care included physical therapy and epidural injections for lumbar disc herniation at L5-S1 level on the left side while patient was residing in [place]. The pain persists, described as a pressure-like and pulling sensation radiating to the right hip and occasionally down the right leg laterally. Exacerbating factors: positional changes, bending, and standing. Previous interventions include PT, massage, chiropractic therapy, TENS unit and back injections, but surgery was declined. Other concerns include chronic urinary incontinence, managed by Urology. Functionally, pain affects daily activities and sleep. Patient also has recently underwent vascular surgery 08/06/24 at [facility] for varicose veins recommending bilateral GSV ablation and stab phlebectomies per PCP referral notes. Denies any fever or chills, weakness, footdrop, bowel dysfunction or saddle anesthesia. - Onset and Timing: Started in 2019 following a fall; current pain level at 8/10. - Quality and Character: Pressure-like, pulling, shooting, stabbing, throbbing, radiating, spasming sensations. - Primary Location: Lower back. - Radiation: Right lateral hip; sometimes radiates down the right leg in L5 distribution. - Exacerbating Factors: Sitting to standing, bending, prolonged standing or walking; weather changes. - Relieving Factors: Stretches and specialized pillows at night. TENS unit. Ibuprofen, meloxicam, tizanidine, lidocaine patches. - Interference: Affects daily activities, work function, and sleep. - Affect: Patient reports chronic pain adversely affecting daily living and sleep, with heightened stress. - Analgesia: Current pain level at 8/10; medications include ?s ibuprofen and prescribed meloxicam for wrist pain. Also takes tizanidine, lidocaine patches, and utilizes TENS unit and heat therapy. - Adverse Effects: No specified adverse effects noted from current pain management. - Activities of Daily Living: Pain inhibits ease of movement and sleep quality; however, she attempts regular walking exercises. - Aberrant Drug-Related Behaviors: Reports occasional use of ?s ibuprofen for severe pain. [facility] Medical History Annual physical exam Hypersomnia Pelvic floor weakness in female Well woman exam with routine gynecological exam Family history of colon cancer Painful arc syndrome of right shoulder Breast cancer screening by mammogram Smoker Obesity, morbid, BMI 40.0-49.9 Well woman exam with routine gynecological exam Rotator cuff impingement syndrome of right shoulder Lumbar disc herniation Rotator cuff tear, left Labral tear of left hip joint Wedge compression fracture of T11 vertebra Cervical disc herniation ASCUS of cervix with negative high risk HPV Migraine Tobacco abuse Anxiety Asthma GERD (gastroesophageal reflux disease) Lateral epicondylitis of right elbow Surgical History History of elbow surgery History of tubal ligation History of foot surgery Family History Mother Depression with anxiety Colon cancer, Onset Age: 50 Myocardial infarction Father No problems noted. 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 - Neurological: Reports radicular pain and urinary incontinence; denies tingling in the left leg. - Genitourinary: Reports urinary incontinence, controlled with oxybutynin. Denies bowel dysfunction or saddle anesthesia. All systems reviewed & are unremarkable except as noted in HPI and below Physical Exam Vital Signs: Last Vital Signs Pulse 71 11/21/24 15:05 BP 138/91 H 11/21/24 15:05 Pulse Ox 100 11/21/24 15:05 Oxygen Delivery Method Room Air 11/21/24 15:05 BMI result Body Mass Index 36.6 General: Appears afebrile. Alert and oriented. Mood and affect appropriate. Follows and participates in conversation appropriately. Respiratory effort is unlabored. No cough. Able to transition from sit to stand unassisted. Ambulates with bilaterally normal heel strike and toe off, increased pain on the right>left with heel/toes standing. General: Yes no CVA tenderness Back/Spine/Pelvis Other: Limited lumbar ROM due to pain. Normal gait. No limping. Can flex forward to 70- 75 degrees and extend to 5-10 degrees before experiencing lumbar pain. Dem onstrates 5/5 strength of quadriceps bilaterally as well as flexion/dorsiflexion of bilateral feet against resistance. 2+ pedal pulses bilaterally. Straight leg rise with dorsiflexion positive on the right. +2 patellar and achilles reflexes bilaterally. Facet loading test positive bilaterally. Geoffrey sign, Dillon?s, Pelvic compression and Stinchfield tests are positive bilaterally. Mild groin pain with right I/E hip rotations. Valsalva maneuver is negative. Back: no CVA tenderness Cervical Spine: cervical ROM normal, cervical muscular tenderness, pain with cervical ROM and No Cervical spine tenderness Thoracic/Lumbar Spine: thoracic and lumbar spine normal to inspection, No Thoracic/lumbar spine scar(s), Lasegue's sign positive on the right and localized, pain with thoraco-lumbar ROM, paraspinal muscle tenderness on the right greater than left, thoraco-lumbar ROM limited, thoracic spinal tenderness (lower thoracic) and lumbar spinal tenderness (L4-S1) Pelvis: buttock tenderness (right>left) bilaterally Sacroiliac joints: bilaterally tender to palpation Extrem General: Yes capillary refill normal, Yes no clubbing, cyanosis or edema and Yes no calf tenderness Results Reviewed Results Reviewed: XR LUMBOSACRAL SPINE 10/07/2019 CLINICAL INFORMATION: Lower back pain. FINDINGS: There is a mild T11 anterior wedge compression fracture. Vertebral body heights and alignment are other normal. The disc spaces are well-maintained. No acute fracture or spondylolisthesis is seen. There is moderate spondylosis at L1-L2. The posterior elements are intact. There is bilateral facet arthropathy at L5-S1. The soft tissues are unremarkable. IMPRESSION: 1. There is an age-indeterminate mild T11 anterior wedge compression fracture. 2. The disc spaces are well-maintained. 3. There is moderate spondylosis at L1-L2. 4. There is bilateral facet arthropathy at L5-S1. MR LUMBAR SPINE WITHOUT CONTRAST 09/23/24 CLINICAL INFORMATION: Spondylosis without myelopathy or radiculopathy. FINDINGS: Last rib-bearing vertebra labeled T12. No bone marrow STIR signal abnormality. Focal hyperintense T2 STIR signal in the posterior intervertebral disc L5-S1 likely focal annular fissure. Multilevel marginal osteophyte formation and disc desiccation more conspicuous at T10-11, T11-12 and L1-2 levels. Focal intrinsic hyperintense T1 signal posterior left vertebral body of T12 likely intraosseous hemangioma. The alignment is normal. Conus medullaris ends at inferior endplate of T12 with normal signal. Mild wedge-shaped compression deformity representing 20% volume loss at T11 and T12. T12-L1: No disc herniation. No neuroforamina stenosis. L1-2: Broad-based disc bulging. Facet joint hypertrophy. No compression upon neural elements. L2-3: Broad-based disc bulging. Facet joint hypertrophy. No compression upon neural elements. L3-4: Broad-based disc bulging. Facet joint and ligamentum flavum hypertrophy. No compression upon neural elements. L4-5: Broad-based disc bulging. Facet joint and ligamentum flavum hypertrophy. Reduced AP diameter of the thecal sac and neuroforamina. There is a 6 mm hyperintense T2 fluid signal characteristic abnormality in the posterior right L4-5 facet joint. L5-S1: There is a Central broad-based disc herniation. Facet joint and ligamentum flavum hypertrophy. There is central spinal canal stenosis encroaching the S1, bilaterally. Bilateral facet joint narrowing on a degenerative basis. There is a 6 mm fluid signal characteristic abnormality in the lateral right L5-S1 facet joint.. Fatty atrophy of the lower lumbar muscles from L5 to the sacrum. No prevertebral compartment hematoma, mass or fluid collection. Focal hyperintense T2 cystic lesion at the corticomedullary junction, left kidney. IMPRESSION: Broad-based central disc herniation L5-S1 encroaching the S1 nerve roots, bilaterally. Multilevel thoracolumbar spondylosis. Small synovial facet joint cysts, posterior L4-5 and L5-S1 without compression nerve roots. Assessment & Plan Assessment & Plan (1) Lumbosacral spondylosis: Code(s): M47.817 - Spondylosis without myelopathy or radiculopathy, lumbosacral region Category: Medical (2) Lumbar radiculopathy: Code(s): M54.16 - Radiculopathy, lumbar region Category: Medical (3) Muscle spasm of back: Code(s): M62.830 - Muscle spasm of back Category: Medical (4) Lumbar disc herniation with radiculopathy: Code(s): M51.16 - Intervertebral disc disorders with radiculopathy, lumbar region Category: Medical Plan Patient is 1 week status post diagnostic lumbar medial branch blocks with no pain relief since procedure, confirming axial low back pain is not her main pain generator. We will proceed with right L5-S1 TFESI injection to address ongoing and persistent right sided radiculopathy, which is consistent with patient's ongoing symptoms and recent MRI findings. Schedule Right L5-S1 TFESI with local, oral Ativan and fluoroscopy. Expectations, risks and benefits were reviewed. Patient is aware she will be contacted to schedule this procedure. Refill provided for gabapentin with increased dose to 300 mg t.i.d. Patient aware to monitor for any side effects. Should these measures be inadequate, consideration for neurosurgical evaluation was discussed, emphasizing structural contributions to the chronic pain. The patient was advised on the importance of activity modifications, adequate hydration, good posture, weight optimization and monitoring symptoms to respond promptly to any worsening changes. All questions and concerns have been answered and patient agreed with the plan. Follow up after injections and sooner as needed. Patient was informed and verbally consented to the use of an ambient scribe for clinic note documentation during this visit. Medications: Changed From gabapentin 300 mg PO BID 30 days 60 caps 0RF pain M54.16 - Radiculopathy, lumbar region To gabapentin 300 mg PO TID 30 days 90 caps 0RF pain M54.16 - Radiculopathy, lumbar region Coding Level of Care Code Est Pt Level 4 (02118) Complex EM visit Add On G2211 Diagnoses Lumbosacral spondylosis M47.817 Lumbar radiculopathy M54.16 Muscle spasm of back M62.830 Lumbar disc herniation with radiculopathy M51.16
[2024-11-21 15:05] VITALS: BP 138/91; PULSE 71; O2SAT 100; BMI 36.6
--- OUTSIDE RECORDS SUMMARY | 2024-11-21 17:39 | XMS_ITS | Patient Health Record ---
Author Organization [facility] [place] Address [address] [place] [address] Care Team Providers Care Display Department Manager Name Role Phone Huong Major Primary Care Provider José Messina Unavailable [phone] Allergies No Known Allergies Reason For Referral [...] Status Risk Notes Problem Plantar fascial fibromatosis ([id number]) Plantar fascial fibromatosis (M72.2) Active confirmed Plan Of Treatment Pending Test Test Name Order Date MRI : Ankle, right 07/26/2022 X ray : Foot, right 3V 05/26/2022 [id number] TENDON SHEATH/LIGAMENT 1 07/27/2021 Insurance Providers Payer Name Payer Address Payer Phone Subscriber Number Group Number Insured Name Patient Relationship to Insured Coverage Start Date Coverage End Date [facility] [address] [place] [address] [phone] [id number] Destinee Childs Self - patient is the insured Medical (General) History Medical History History ICD Code asthma Headaches/Migraines Surgical History Surgery Date(Month/Year) heel surgery, heel spur right foot elbow sx, right tubal ligation
== END 2024-11-21 15:31 | disposition home or self-care (01) ==
LOC: HO.PMC 14:59
PROVIDERS: PCP Internal Medicine; Visit Provider Nurse Practitioner Family
DX: M47.817 Spondylosis without myelopathy or radiculopathy, lumbosacral region (principal); M62.830 Muscle spasm of back; M51.16 Intervertebral disc disorders with radiculopathy, lumbar region
CPT/HCPCS: 99214

== ENCOUNTER 2024-11-28 07:22 | Outpatient (AMB) | payer BC, SELFPAY ==
[2024-11-28 07:24] VITALS: BP 136/80; BMI 36.6
--- NOTE | 2024-11-28 07:24 | MHC.OFFVIS ---
Vital Signs 11/28/24 07:24 Height 5 ft 2 in Weight 200 lb BMI 36.6 BP 136/80 Intake Visit Reasons: Heavy menses District Administrative Assistant Required: No Information Interpreted: non-clinical & clinical Craft Recruiter: Craft Recruiter Present (Martine CHAPARRO) Accompanied by: Self / Same As Patient Allergies barium sulfate Allergy (Unknown, Verified 11/28/24 07:31) Nightmare codeine Allergy (Unknown, Verified 11/28/24 07:31) codeine phosphate, ITCHY varenicline (From Chantix) Allergy (Unknown, Verified 11/28/24 07:31) nightmares HPI Comments Details: The patient is presenting c/o irregular bleeding associated with passage of blood clots and abdominal cramping. it started few months ago and is getting worse no other associated symptoms. Last co testing 05/04 was negative Last mammogram 12/03 was BI-RADS 1, the patient is scheduled for next screening mammogram on 01/01/2020 [facility] Medical History Annual physical exam Hypersomnia Pelvic floor weakness in female Well woman exam with routine gynecological exam Family history of colon cancer Painful arc syndrome of right shoulder Breast cancer screening by mammogram Smoker Obesity, morbid, BMI 40.0-49.9 Well woman exam with routine gynecological exam Rotator cuff impingement syndrome of right shoulder Lumbar disc herniation Rotator cuff tear, left Labral tear of left hip joint Wedge compression fracture of T11 vertebra Cervical disc herniation ASCUS of cervix with negative high risk HPV Migraine Tobacco abuse Anxiety Asthma GERD (gastroesophageal reflux disease) Lateral epicondylitis of right elbow Surgical History History of elbow surgery History of tubal ligation History of foot surgery Family History Mother Depression with anxiety Colon cancer, Onset Age: 50 Myocardial infarction Father No problems noted. 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 Cognitive needs: No Hearing needs: No Vision needs: No Female Reproductive History Menstrual Age of Menarche: 15 Review of Systems Const All systems reviewed & are unremarkable except as noted in HPI and below Physical Exam Vital Signs: Last Vital Signs BP 136/80 11/28/24 07:24 BMI result Body Mass Index 36.6 Chest Chest palpation & inspection: normal inspection of the chest Breast/axilla inspection: normal inspection of the breasts and normal inspection of the axillae Breast/axilla palpation: normal palpation of the breasts and normal palpation of the axillae General: Yes no CVA tenderness External Female Exam: normal external appearance and normal appearance of the urethra Speculum Exam - Vagina: normal appearance of the vagina, normal palpation, no lesions and no masses Speculum Exam - Cervix: normal appearance of the cervix, normal palpation, no lesions, no masses and nontender Bimanual exam- vagina & uterus: normal bimanual exam, normal palpation, uterine size normal, normal palpation, uterine shape normal, No Cervical tenderness present and non-tender Bimanual Exam- Adnexa, other: normal adnexae Back/Spine/Pelvis Back: no CVA tenderness Results AMB Test Urine AMB Test Urine Negative Last Edit by Martine Morillo CMA on 11/28/24 07:32 Assessment & Plan Assessment & Plan (1) Abnormal uterine bleeding (AUB): Code(s): N93.9 - Abnormal uterine and vaginal bleeding, unspecified Category: Medical Plan: GC and chlamydia taken CBC, TSH, HCG, and pelvic ultrasound ordered. Discussed with the patient the different causes of abnormal bleeding including thyroid disorders, uterine and ovarian pathology, endometrial hyperplasia, carcinoma and other potential causes. Discussed with the patient the work up including CBC (to r/o anemia), TSH, pelvic Ultrasound, endometrial biopsy to r/o endometrial pathology. All questions answered and the patient verbalized understanding. Instructed the patient to schedule an appointment for an endometrial biopsy in 2 weeks. Orders: Orders AMB HCG Urine Test Today Z32.02 - Encounter for test, result negative CT NG by PCR Today N92.0 - Excessive and frequent menstruation with regular cycle US pelvic and transvaginal Today N93.9 - Abnormal uterine and vaginal bleeding, unspecified Complete Blood Count no Diff Today N93.9 - Abnormal uterine and vaginal bleeding, unspecified TSH reflex Free T4 Today N93.9 - Abnormal uterine and vaginal bleeding, unspecified HCG Quantitative Today N93.9 - Abnormal uterine and vaginal bleeding, unspecified Coding Level of Care Code Est Pt Level 3 (43028) Diagnoses Abnormal uterine bleeding (AUB) N93.9
== END 2024-11-28 07:40 | disposition home or self-care (01) ==
LOC: HO.HWS 07:22
PROVIDERS: PCP Internal Medicine; Visit Provider Obstetrics & Gynecology
DX: Z32.02 Encounter for pregnancy test, result negative (principal); N93.9 Abnormal uterine and vaginal bleeding, unspecified
CPT/HCPCS: 99213

== ENCOUNTER 2024-11-28 07:22 | Outpatient (REF) | payer BC, SELFPAY ==
[2024-11-28 08:06] LABS: Hematocrit 43.8 % (37.0-47.0); Hemoglobin 14.5 g/dl (12.0-16.0); Mean Corpuscular HGB Conc 33.1 g/dl (31.0-35.0); Mean Corpuscular Volume 90.7 fL (80.0-98.0); Mean Platelet Volume 10.4 fL (9.4-12.3); Platelet Count 338 X10*3/uL (160-400); Red Blood Count 4.83 X10*6/uL (4.20-5.50); Red Cell Distribution Width 13.4 % (11.0-16.0); White Blood Count 11.7 X10*3/uL (4.8-10.8)
[2024-11-28 08:53] LABS: HCG Quantitative < 2 mIU/mL; TSH reflex Free T4 1.32 uIU/mL (0.32-4.0)
== END 2024-11-28 07:23 | disposition home or self-care (01) ==
LOC: HO.LNP 07:22
PROVIDERS: PCP Internal Medicine; Visit Provider Obstetrics & Gynecology
DX: N93.9 Abnormal uterine and vaginal bleeding, unspecified (principal)
CPT/HCPCS: 81025; 84443; 84702; 85027

== ENCOUNTER 2024-11-28 07:46 | Outpatient (REF) | payer BC, SELFPAY ==
[2024-11-28 13:25] LABS: CT PCR NOT DETECTED (Not Detect.); NG PCR NOT DETECTED (Not Detect.)
== END 2024-11-28 07:47 | disposition home or self-care (01) ==
LOC: HO.LAB 07:46
PROVIDERS: PCP Internal Medicine; Visit Provider Obstetrics & Gynecology
DX: N92.0 Excessive and frequent menstruation with regular cycle (principal)
CPT/HCPCS: 87491; 87591

== ENCOUNTER 2024-12-17 15:08 | Outpatient (AMB) | payer BC, SELFPAY ==
--- NOTE | 2024-12-17 15:12 | A.OFFVIS_ITS ---
Intake Visit Reasons: OV - right shoulder pain, last inj 06/03/24 Intake Note: Destinee is a 44 year old right hand dominant female who presents today for a follow up of her right shoulder, last injection 06/03/24. Patient reports that her last injection didn't give her much relief. She states that her injection g ave her about a month or 2 of relief. Allergies barium sulfate Allergy (Unknown, Verified 12/17/24 15:21) Nightmare codeine Allergy (Unknown, Verified 12/17/24 15:21) codeine phosphate, ITCHY varenicline (From Chantix) Allergy (Unknown, Verified 12/17/24 15:21) nightmares HPI HPI OV - right shoulder pain, last inj 06/03/24: Details: Ms. Childs is a 44-year-old right-hand dominant female who presents to the office today for follow up of right shoulder pain. She was last seen in our office on 06/03/2024 where she received a cortisone injection to the right shoulder. She reports this lasted about 2 months and then her pain returned back to baseline. She also endorses pain that radiates to the neck as well as down to the hand accompanied by numbness and tingling. [facility] Medical History Annual physical exam Hypersomnia Pelvic floor weakness in female Well woman exam with routine gynecological exam Family history of colon cancer Painful arc syndrome of right shoulder Breast cancer screening by mammogram Smoker Obesity, morbid, BMI 40.0-49.9 Well woman exam with routine gynecological exam Rotator cuff impingement syndrome of right shoulder Lumbar disc herniation Rotator cuff tear, left Labral tear of left hip joint Wedge compression fracture of T11 vertebra Cervical disc herniation ASCUS of cervix with negative high risk HPV Migraine Tobacco abuse Anxiety Asthma GERD (gastroesophageal reflux disease) Lateral epicondylitis of right elbow Surgical History History of elbow surgery History of tubal ligation History of foot surgery Family History Mother Depression with anxiety Colon cancer, Onset Age: 50 Myocardial infarction Father No problems noted. 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 No ecchymosis, erythema, or edema. Pain with forward flex, abduction and cross-body reach. Forward flexion to 45 degrees as well as abduction. Unable to adequately assess empty can or drop arm due to pain and ROM restrictions. NVI. Psych Mental Status: mental status grossly normal Assessment & Plan Assessment & Plan (1) Numbness and tingling of right upper extremity: Code(s): R20.0 - Anesthesia of skin; R20.2 - Paresthesia of skin Category: Medical Plan Ms. Childs is a 44-year-old right-hand dominant female who presents to the office today for follow up of right shoulder pain. She was last seen in our office on 06/03/2024 where she received a cortisone injection to the right shoulder. She reports this lasted about 2 months and then her pain returned back to baseline. She also endorses pain that radiates to the neck as well as down to the hand accompanied by numbness and tingling. While in the office today, we discussed the possibility of her symptoms originating from her C-spine. I would like the patient to obtain an MRI of the right shoulder to see if there are any changes in comparison to the MRI that was obtained in 2021. Additionally, I would like to have an EMG study performed to evaluate for the possibility of C-spine involvement. Patient will follow up after the MRI and EMG study has been obtained, sooner if needed. Additionally, I did send a prescription for Celebrex 200 mg to be taken twice a day for inflammation and pain. Orders: Orders NE electromyogram (EMG) Today M54.2 - Cervicalgia, R20.0 - Anesthesia of skin, R20.2 - Paresthesia of skin NE nerve conduction velocity Today M25.511 - Pain in right shoulder, M54.2 - Cervicalgia Medications: New celecoxib (Celebrex) 200 mg PO BID 60 caps 0RF 30 days Coding Level of Care Code Est Pt Level 3 (37060) Diagnoses Numbness and tingling of right upper extremity R20.0; R20.2
--- OUTSIDE RECORDS SUMMARY | 2024-12-17 15:48 | XMS_ITS | Patient Health Record ---
Author Organization [facility] [place] Address [address] [facility] [place] [address] Care Team Providers Care Oceanologist Name Role Phone Huong Major Primary Care Provider José Messina Unavailable [phone] Allergies No Known Allergies Reason For Referral No Information Medications Medication SIG (Take, Route, Frequency, Duration) Notes Start Date End Date Status tiZANidine HCl Not-T aking Physical Therapy . . . 2-3x/week; Duration: 3-4 weeks Active traMADol HCl Active hydrOXYzine HCl Acti ve Combivent Respimat A ctive tiZANidine HCl Activ e Walking Boot/Pneumatic As directed Wear Daily; Duration: Until further notice 07/26/2022 Active Combivent Respimat [...] Status Risk Notes Problem Plantar fascial fibromatosis (M72.2) Active confirmed Plan Of Treatment Pending Test Test Name Order Date MRI : Ankle, right 07/26/2022 X ray : Foot, right 3V 05/26/2022 [id number] TENDON SHEATH/LIGAMENT 1 07/27/2021 Insurance Providers Payer Name Payer Address Payer Phone Subscriber Number Group Number Insured Name Patient Relationship to Insured Coverage Start Date Coverage End Date [facility] [address] [place] [address] [phone] [id number] Destinee Childs Self - patient is the insured Medical (General) History Medical History History ICD Code asthma Headaches/Migraines Surgical History Surgery Date(Month/Year) heel surgery, heel spur right foot elbow sx, right tubal ligation
== END 2024-12-17 15:32 | disposition home or self-care (01) ==
LOC: HO.HOS 15:09
PROVIDERS: PCP Internal Medicine; Visit Provider Physician Assistant
DX: R20.0 Anesthesia of skin (principal); R20.2 Paresthesia of skin
CPT/HCPCS: 99213

== ENCOUNTER 2024-12-19 07:50 | Outpatient (REF) | payer BC, SELFPAY ==
--- OUTSIDE RECORDS SUMMARY | 2024-12-20 07:52 | XMS_ITS | Patient Health Record ---
Author Organization [facility] [place] Address [address] [facility] [place] [address] Care Team Providers Care Sample Grader Name Role Phone Huong Major Primary Care Provider José Messina Unavailable [phone] Allergies No Known Allergies Reason For Referral [...] Status Risk Notes Problem Plantar fascial fibromatosis ([id number]) Plantar fascial fibromatosis (M72.2) Active confirmed Plan Of Treatment Pending Test Test Name Order Date MRI : Ankle, right 07/26/2022 X ray : Foot, right 3V 05/26/2022 [id number] TENDON SHEATH/LIGAMENT 1 07/27/2021 Insurance Providers Payer Name Payer Address Payer Phone Subscriber Number Group Number Insured Name Patient Relationship to Insured Coverage Start Date Coverage End Date [facility] [address] [place], [place] [address] [id number] Destinee Childs Self - patient is the insured Medical (General) History Medical History History ICD Code asthma Headaches/Migraines Surgical History Surgery Date(Month/Year) heel surgery, heel spur right foot elbow sx, right tubal ligation
== END 2024-12-19 07:51 | disposition home or self-care (01) ==
LOC: HO.HOSX 07:50
PROVIDERS: Visit Provider Physician Assistant
DX: Z13.89 Encounter for screening for other disorder (principal)

== ENCOUNTER → 2024-12-26 18:06 | Outpatient (BNV) | payer BC, SELFPAY | PROVIDERS: Visit Provider Radiology Diagnostic Radiology | DX: M75.101 Unspecified rotator cuff tear or rupture of right shoulder, not specified as traumatic (principal) | CPT/HCPCS: 73221 ==

== ENCOUNTER 2024-12-26 18:08 | Outpatient (REF) | payer BC, SELFPAY ==
--- NOTE | ~2024-12-26 | MR_ITS ---
EXAMINATION: MRI RIGHT SHOULDER WITHOUT CONTRAST HISTORY: M75.101 - Unspecified rotator cuff tear or rupture of right shoulder COMPARISON: Comparison is made with the prior examination dated 01/04/2022. TECHNIQUE: Coronal T1, T2, and fat suppressed T2, axial fat suppressed proton density, and sagittal T2 weighted MR images of the right shoulder were obtained. FINDINGS: Bone Marrow: Bone marrow signal intensity is normal. Joint effusion: There is no glenohumeral joint effusion. Glenohumeral joint: The glenohumeral joint is maintained. AC joint: The AC joint is unremarkable. Supraspinatus muscle/tendon: Again seen is mild increased signal intensity along the bursal surface of the supraspinatus tendon consistent with tendinosis and fraying. No full-thickness tear. Normal muscle bulk. Infraspinatus muscle/tendon: The infraspinatus tendon is intact. Normal muscle bulk. Teres minor muscle/tendon: The teres minor tendon is intact. Normal muscle bulk. Subscapularis muscle/tendon: The subscapularis tendon is intact. Normal muscle bulk. Biceps tendon: The biceps tendon is intact and normally located. Glenoid labrum: The glenoid labrum is grossly unremarkable in appearance, although evaluation is limited by lack of a joint effusion. Other findings: None MR/MR shoulder RT wo con IMPRESSION: Tendinosis of the bursal surface of the supraspinatus tendon without evidence of a full-thickness tear. There has been no significant change from the prior study. Electronically signed by: Sathish Vargas MD 12/27/2024 08:26 AM EDT
== END 2024-12-26 18:09 | disposition home or self-care (01) ==
LOC: HO.MRI 18:08
PROVIDERS: Visit Provider Physician Assistant
DX: M75.101 Unspecified rotator cuff tear or rupture of right shoulder, not specified as traumatic (principal)
CPT/HCPCS: 73221

== ENCOUNTER 2024-12-31 15:38 | Outpatient (REF) | payer BC, SELFPAY ==
--- OUTSIDE RECORDS SUMMARY | 2024-12-31 16:27 | XMS_ITS | Patient Health Record ---
Author Organization [facility] [place] Address [address] [facility] [place] [address] Care Team Providers Care Mannequin Sander And Finisher Name Role Phone Huong Major Primary Care Provider José Messina Unavailable [phone] Allergies No Known Allergies Reason For Referral [...] X ray : Foot, right 3V 05/26/2022 [id number] TENDON SHEATH/LIGAMENT 1 07/27/2021 Insurance Providers Payer Name Payer Address Payer Phone Subscriber Number Group Number Insured Name Patient Relationship to Insured Coverage Start Date Coverage End Date [facility] [address] [place] [address] [id number] Destinee Childs Self - patient is the insured Medical (General) History Medical History History ICD Code asthma Headaches/Migraines Surgical History Surgery Date(Month/Year) heel surgery, heel spur right foot elbow sx, right tubal ligation
== END 2024-12-31 15:39 | disposition home or self-care (01) ==
LOC: HO.MAMMO 15:38
PROVIDERS: PCP Internal Medicine; Visit Provider Internal Medicine
DX: Z12.31 Encounter for screening mammogram for malignant neoplasm of breast (principal)
CPT/HCPCS: 77063; 77067

== ENCOUNTER → 2024-12-31 16:30 | Outpatient (BNV) | payer BC, SELFPAY | PROVIDERS: PCP Internal Medicine; Visit Provider Internal Medicine | DX: Z12.31 Encounter for screening mammogram for malignant neoplasm of breast (principal) | CPT/HCPCS: 77063; 77067 ==

== ENCOUNTER 2025-01-01 14:18 | Outpatient (REF) | payer BC, SELFPAY ==
--- NOTE | ~2025-01-01 | US_ITS ---
CLINICAL HISTORY: N93.9 - Abnormal uterine and vaginal bleeding, unspecified Transabdominal and transvaginal pelvic ultrasound Comparison: None Findings: Uterus 7.8 x 4.0 x 4.0 cm. Endometrium 4 mm. 1.8 cm anterior uterine fibroid. Trace free fluid. Right ovary 3.4 x 2.5 x 2.9 cm. 2.8 x 2.7 cm simple cyst. Left ovary 1.4 x 1.0 x 1.8 cm. No focal abnormality. Impression: 1.8 cm anterior fibroid Simple cyst right ovary This document has been electronically signed by: Joey Gardiner MD on 01/01/2025 21:56:18
== END 2025-01-01 14:19 | disposition home or self-care (01) ==
LOC: HO.US 14:18
PROVIDERS: PCP Internal Medicine; Visit Provider Obstetrics & Gynecology
DX: N93.9 Abnormal uterine and vaginal bleeding, unspecified (principal)
CPT/HCPCS: 76830; 76856

== ENCOUNTER → 2025-01-01 14:23 | Outpatient (BNV) | payer BC, SELFPAY | PROVIDERS: PCP Internal Medicine; Visit Provider Radiology Diagnostic Radiology | DX: D25.1 Intramural leiomyoma of uterus (principal) | CPT/HCPCS: 76830; 76856 ==

== ENCOUNTER 2025-01-02 06:47 | Outpatient (REF) | payer BC, SELFPAY ==
--- NOTE | ~2025-01-02 | FL_ITS ---
EXAMINATION: FL GUIDANCE ONLY HISTORY: M54.16 - Radiculopathy, lumbar region COMPARISON: None available. TECHNIQUE: Fluoroscopy time: 0.2 minutes. Cumulative Dose: 6.63 mGy. DAP: 0.0522 mGym2 Images: 2. FINDINGS: Fluoroscopic spot films of the lumbar spine demonstrate a needle and contrast material in the region of an L5 pedicle. FL/FL guidance in treatment room IMPRESSION: Fluoroscopy during procedure. Please see procedure report for additional information. Electronically signed by: Sathish Vargas MD 01/02/2025 03:51 PM EDT
--- OUTSIDE RECORDS SUMMARY | 2025-01-02 06:49 | XMS_ITS | Patient Health Record ---
Author Organization [facility] [place] Address [address] [facility] [place] [address] Care Team Providers Care Patternmaker Plaster And Plastic Name Role Phone Huong Major Primary Care Provider José Messina Unavailable [phone] Allergies No Known Allergies Reason For Referral [...] Status Risk Notes Problem Plantar fascial fibromatosis ([id number]) Plantar fascial fibromatosis (M72.2) Active confirmed Plan Of Treatment Pending Test Test Name Order Date MRI : Ankle, right 07/26/2022 X ray : Foot, right 3V 05/26/2022 [id number] TENDON SHEATH/LIGAMENT 1 07/27/2021 Insurance Providers Payer Name Payer Address Payer Phone Subscriber Number Group Number Insured Name Patient Relationship to Insured Coverage Start Date Coverage End Date [facility] [address] [place], [place] [address] [id number] Destinee Childs Self - patient is the insured Medical (General) History Medical History History ICD Code asthma Headaches/Migraines Surgical History Surgery Date(Month/Year) heel surgery, heel spur right foot elbow sx, right tubal ligation
== END 2025-01-02 06:48 | disposition home or self-care (01) ==
LOC: CF 06:47
PROVIDERS: Visit Provider Internal Medicine
DX: M54.16 Radiculopathy, lumbar region (principal)
CPT/HCPCS: 64483; J1100; J2003; Q9967

== ENCOUNTER 2025-01-02 13:46 | Outpatient (AMB) | payer BC, SELFPAY ==
[2025-01-02 13:51] VITALS: BP 111/69; PULSE 73; RESP 16; O2SAT 97; BMI 36.6
--- NOTE | 2025-01-02 13:51 | A.OFFVIS_ITS ---
Vital Signs 01/02/25 13:51 01/02/25 14:37 Height 5 ft 2 in 5 ft 2 in Weight 200 lb 200 lb BMI 36.6 36.6 BP 111/69 138/99 H Blood Pressure Location Lt radial Lt brachial Position Sitting Sitting Respiration 16 16 Pulse 73 74 Pulse Source Pulse Oximeter Pulse Oximeter Pulse Oximetry (%) 97 99 Oxygen Delivery Method Room Air Room Air Intake Visit Reasons: Right L5-S1 TFESI/ ativan Allergies barium sulfate Allergy (Unknown, Verified 12/17/24 15:21) Nightmare codeine Allergy (Unknown, Verified 12/17/24 15:21) codeine phosphate, ITCHY varenicline (From Chantix) Allergy (Unknown, Verified 12/17/24 15:21) nightmares HPI HPI Right L5-S1 TFESI/ ativan: Details: Patient presents for scheduled procedure. Denies any recent cough, cold, infection, fever or other significant changes in medical history since last office visit. [facility] Medical History Annual physical exam Hypersomnia Pelvic floor weakness in female Well woman exam with routine gynecological exam Family history of colon cancer Painful arc syndrome of right shoulder Breast cancer screening by mammogram Smoker Obesity, morbid, BMI 40.0-49.9 Well woman exam with routine gynecological exam Rotator cuff impingement syndrome of right shoulder Lumbar disc herniation Rotator cuff tear, left Labral tear of left hip joint Wedge compression fracture of T11 vertebra Cervical disc herniation ASCUS of cervix with negative high risk HPV Migraine Tobacco abuse Anxiety Asthma GERD (gastroesophageal reflux disease) Lateral epicondylitis of right elbow Surgical History History of elbow surgery History of tubal ligation History of foot surgery Family History Mother Depression with anxiety Colon cancer, Onset Age: 50 Myocardial infarction Father No problems noted. 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 The patient was placed in the prone position on the fluoroscopy table. The lumbosacral area was prepped with chloraprep, allowed to dry and draped in sterile fashion. Using fluoroscopy, the skin overlying our target was anesthetized with 0.5% lidocaine. A 22 gauge 3.5 inch spinal needle was advanced to the safe triangle in the upper pole of the right L5 foramen. No paresthesias were elicited with needle placement and aspiration was negative for blood and CSF. Correct needle position was confirmed with approximately 1 ml contrast dye (Omnipaque 180 mg/ml) injected under real-time fluoroscopy. No evidence of vascular or intrathecal uptake was seen and there was both epidural and peripheral spread of the contrast agent. 10 mg dexamethasone plus 1 ml containing 0.5% lidocaine was slowly injected. The needle was flushed and removed. The skin was cleansed and a sterile bandages were applied. The patient tolerated the procedure well and no complications were encountered. Following the procedure the patient's vital signs were stable. The patient was discharged home in good condition with post-procedural instructions. Time Out: Immediately prior to the procedure, the following was verbally conf irmed that there is a signed consent form and that the correct patient, planned procedure, site and side are consistent with documentation and that necessary equipment and/or blood products are available prior to the start of the case. Complications: none EBL: <5 cc 78938 - Lumbar/Sacral Procedure code (CPT) selection complete Assessment & Plan Assessment & Plan (1) Lumbar radiculopathy: Code(s): M54.16 - Radiculopathy, lumbar region Category: Medical Plan Patient is status post right L5 TFESI. Patient tolerated procedure well and was discharged home in stable condition with discharge instructions. All questions were answered. We will follow-up via telephone or in clinic to assess response to therapy. A follow-up appointment was made during today's visit. Orders: Orders FL guidance in treatment room 01/02/25 M54.16 - Radiculopathy, lumbar region Medications: New lorazepam (Ativan) Take 30 minutes prior to arrival to procedure 1 mg PO ONCE 1 tab 0RF anxiety Coding Level of Care Code Procedure Only Diagnoses Lumbar radiculopathy M54.16 CPT Codes Transforaminal Epidural Steroid Inj - TESI 3: 80752 - Lumbar/Sacral ([id number])
[2025-01-02 14:37] VITALS: BP 138/99; PULSE 74; RESP 16; O2SAT 99; BMI 36.6
== END 2025-01-02 14:57 | disposition home or self-care (01) ==
LOC: HO.PMCPRC 13:46
PROVIDERS: PCP Internal Medicine; Visit Provider Internal Medicine
DX: M54.16 Radiculopathy, lumbar region (principal)
CPT/HCPCS: 64483

== ENCOUNTER 2025-01-03 10:20 | Outpatient (AMB) | payer BC, SELFPAY ==
--- OUTSIDE RECORDS SUMMARY | 2025-01-03 10:34 | XMS_ITS | Patient Health Record ---
Author Organization [facility] tyrone Hayti Address [address] [facility] [facility] [place] [address] Care Team Providers Care Community Living Specialist Name Role Phone Huong Major Primary Care Provider José Messina Unavailable [phone] Allergies No Known Allergies Reason For Referral [...] X ray : Foot, right 3V 05/26/2022 [id number] TENDON SHEATH/LIGAMENT 1 07/27/2021 Insurance Providers Payer Name Payer Address Payer Phone Subscriber Number Group Number Insured Name Patient Relationship to Insured Coverage Start Date Coverage End Date [facility] [address] [place] [address] [id number] Destinee Childs Self - patient is the insured Medical (General) History Medical History History ICD Code asthma Headaches/Migraines Surgical History Surgery Date(Month/Year) heel surgery, heel spur right foot elbow sx, right tubal ligation
--- NOTE | 2025-01-03 14:29 | A.OFFVIS_ITS ---
Intake Visit Reasons: Tele - right shoulder MRI review Allergies barium sulfate Allergy (Unknown, Verified 12/17/24 15:21) Nightmare codeine Allergy (Unknown, Verified 12/17/24 15:21) codeine phosphate, ITCHY varenicline (From Chantix) Allergy (Unknown, Verified 12/17/24 15:21) nightmares HPI HPI Tele - right shoulder MRI review: Details: Patient presents via doximity telehealth visit with video for right shoulder MRI review. She reports that she continues to have right shoulder pain as well as burning numbness and tingling. [facility] Medical History Annual physical exam Hypersomnia Pelvic floor weakness in female Well woman exam with routine gynecological exam Family history of colon cancer Painful arc syndrome of right shoulder Breast cancer screening by mammogram Smoker Obesity, morbid, BMI 40.0-49.9 Well woman exam with routine gynecological exam Rotator cuff impingement syndrome of right shoulder Lumbar disc herniation Rotator cuff tear, left Labral tear of left hip joint Wedge compression fracture of T11 vertebra Cervical disc herniation ASCUS of cervix with negative high risk HPV Migraine Tobacco abuse Anxiety Asthma GERD (gastroesophageal reflux disease) Lateral epicondylitis of right elbow Surgical History History of elbow surgery History of tubal ligation History of foot surgery Family History Mother Depression with anxiety Colon cancer, Onset Age: 50 Myocardial infarction Father No problems noted. 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 Cognitive needs: No Hearing needs: No Vision needs: No Female Reproductive History Menstrual Age of Menarche: 15 Review of Systems Const All systems reviewed & are unremarkable except as noted in HPI and below Telehealth Telehealth Telehealth Platform: [employer] Location of provider rendering services: practice address Location of patient: other (Work address) Patient Identification confirmed using: Name, : Yes Telehealth method: video Patient verbally consented to treatment: Yes Patient verbally consented to billing insurance company: Yes Patient informed of any privacy concerns related to visit: Yes Minutes spent on Phone/Video with Pt.: 15 Assessment & Plan Assessment & Plan (1) Right shoulder pain: Comment: 2021Minimal supraspinatus tendinosis with distal bursal surface fraying. 2. Otherwise unremarkable examination. Code(s): M25.511 - Pain in right shoulder Category: Medical Plan During our telehealth appointment today I reviewed the MRI results of the patient's right shoulder. The patient does have some tendinosis of the supraspinatus tendon but there is no evidence of full-thickness tearing. There is no indication for surgical procedures at this point. I would like Dr. Alfaro to evaluate this patient to see if there is a cervical spine component that is causing pain to the right shoulder and right upper extremity. She will follow up with Dr. Alfaro, sooner if needed. MRI of the right shoulder obtained on 12/26/2024: IMPRESSION: Tendinosis of the bursal surface of the supraspinatus tendon without evidence of a full-thickness tear. There has been no significant change from the prior study. Coding Level of Care Code Tele Est Pt Level 3 (42123) Diagnoses Right shoulder pain M25.511
== END 2025-01-03 11:24 | disposition home or self-care (01) ==
LOC: HO.HOS 10:20
PROVIDERS: PCP Internal Medicine; Visit Provider Physician Assistant
DX: M25.511 Pain in right shoulder (principal)
CPT/HCPCS: 98967

== ENCOUNTER → 2025-01-03 10:20 | Outpatient (BNVA) | payer BC, SELFPAY | PROVIDERS: PCP Internal Medicine; Visit Provider Physician Assistant | DX: M25.511 Pain in right shoulder (principal) | CPT/HCPCS: 98967 ==

== ENCOUNTER 2025-01-13 13:53 | Outpatient (AMB) | payer BC, SELFPAY ==
--- NOTE | 2025-01-13 13:54 | A.OFFPC_ITS ---
Intake Visit Reasons: 3 Month F/U Allergies barium sulfate Allergy (Unknown, Verified 12/17/24 15:21) Nightmare codeine Allergy (Unknown, Verified 12/17/24 15:21) codeine phosphate, ITCHY varenicline (From Chantix) Allergy (Unknown, Verified 12/17/24 15:21) nightmares Medication List - Last Reconciled 01/13/25 by Bernadette Cortez PA-C albuterol sulfate 90 mcg/actuation 2 puffs inhalation Q6H PRN amitriptyline 10 mg PO BEDTIME celecoxib 200 mg PO BID cholecalciferol (vitamin D3) 100 mcg (2 x 50 mcg (2,000 unit)) PO DAILY gabapentin 300 mg PO TID 30 days hydroxyzine HCl 25 mg PO BID ipratropium-albuterol 0.5 mg-3 mg(2.5 mg base)/3 mL 3 mL inhalation TID PRN ipratropium-albuterol 20-100 mcg/actuation (Combivent Respimat) 1 puff PO Q6H lorazepam (Ativan) 1 mg PO ONCE nebulizers (Mini Plus Nebulizer misc) As directed omeprazole 20 mg PO BID 90 days oxybutynin chloride 10 mg PO BEDTIME sumatriptan succinate take 1 tab at onset of headache; if no relief, may repeat 1 tab after at least 2 hrs; max = 2 tabs/24 hrs PO tizanidine 4 mg PO TID PRN Tobacco use date assessed: 08/19/24 Dental Screening Dental Screen Date: 08/19/24 HPI 3 Month F/U HPI Details 44-year-old female with past medical his tory of GERD, asthma, tobacco abuse, generalized anxiety disorder, obstructive sleep apnea and urge incontinence last seen 08/2024 presenting via telehealth for follow up. At her last visit she was started on amitriptyline. Patient tells us today the amitriptyline has been very mildly working to prevent migraines. Sumatriptan helps with the migraines to take the edge off but does not resolve the migraines completely. She missed 2 of her appointments with the neurologist and agrees to reschedule this. She continues to have worsening shoulder pain and is following with orthopedics for this concern. [facility] Medical History Annual physical exam Hypersomnia Pelvic floor weakness in female Well woman exam with routine gynecological exam Family history of colon cancer Painful arc syndrome of right shoulder Breast cancer screening by mammogram Smoker Obesity, morbid, BMI 40.0-49.9 Well woman exam with routine gynecological exam Rotator cuff impingement syndrome of right shoulder Lumbar disc herniation Rotator cuff tear, left Labral tear of left hip joint Wedge compression fracture of T11 vertebra Cervical disc herniation ASCUS of cervix with negative high risk HPV Migraine Tobacco abuse Anxiety Asthma GERD (gastroesophageal reflux disease) Lateral epicondylitis of right elbow Surgical History History of elbow surgery History of tubal ligation History of foot surgery Family History Mother Depression with anxiety Colon cancer, Onset Age: 50 Myocardial infarction Father No problems noted. 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 Sathish Bui, Adriana Watts, Vladislav Espinoza and colleagues, with an educational dominick from [employer]. Review of Systems Const Denies body aches, Denies chills, Denies fever(s), Reports headache(s) and Denies poor appetite Eyes Reports no additional complaints ENT Denies dizziness and Reports headache(s) Card Denies chest pain, Denies syncope, Denies edema, Denies lightheadedness and Denies dyspnea Resp Denies cough and Denies dyspnea GI Denies abdominal pain, Denies nausea and Denies vomiting Reports no additional complaints Musc Reports as per HPI and Denies abnormal gait Skin/Breast Reports system reviewed and no additional complaints, except as documented Neuro Denies abnormal gait, Denies dizziness, Denies syncope and Reports headache(s) Psych Reports no additional complaints Physical exam (Primary Care) Tobacco/Smoking Status: Tobacco use Status Tobacco use date assessed 08/19/24 01/13/25 13:55 Patient Tobacco Use Status Current everyday Tobacco 01/13/25 13:55 e-Cigarette/Vaping Use Never Used 01/13/25 13:55 Thrive Assessment: Date of Thrive Assessment Date Thrive assessed 08/19/24 01/13/25 13:55 Telehealth Telehealth Telehealth Platform: Telephone Location of provider rendering services: practice address Location of patient: address on file Patient Identification confirmed using: Name, : Yes Telehealth method: voice only Patient verbally consented to treatment: Yes Patient verbally consented to billing insurance company: Yes Coding Level of Care Code Est Pt Level 3 (80123) Diagnoses Hypercholesterolemia E78.00 Obesity (BMI 30.0-34.9) E66.9 Mild intermittent asthma without complication J45.20 Asthma severity: mild Asthma persistence: intermittent Asthma complication type: uncomplicated Migraine G43.909 Acute pain of right shoulder M25.511 Chronicity: acute Assessment & Plan Assessment & Plan (1) Hypercholesterolemia: Code(s): E78.00 - Pure hypercholesterolemia, unspecified Category: Medical Plan: Avoid foods that are high in cholesterol such as red meat, fried foods, eggs and baked goods. Triglyceride goal of less than 150 and LDL goal of less than 130. Reminded patient about blood work (2) Obesity (BMI 30.0-34.9): Code(s): E66.9 - Obesity, unspecified Category: Medical Plan: Healthy diet and regular exercise is encouraged. (3) Asthma: Code(s): J45.909 - Unspecified asthma, uncomplicated Category: Medical Qualifiers: Asthma severity: mild Asthma persistence: intermittent Asthma complication type: uncomplicated Qualified Code(s): J45.20 - Mild intermittent asthma, uncomplicated Plan: Asthma currently controlled on present medications. Continue on inhaler. Avoid triggers such as allergies. (4) Migraine: Code(s): G43.909 - Migraine, unspecified, not intractable, without status migrainosus Category: Medical Plan: She missed the last two neurology appointments due to work issues. She has not felt the amitriptyline has been helpful plan to increase at this time. (5) Right shoulder pain: Comment: 2021Minimal supraspinatus tendinosis with distal bursal surface fraying. 2. Otherwise unremarkable examination. Code(s): M25.511 - Pain in right shoulder Category: Medical Qualifiers: Chronicity: acute Qualified Code(s): M25.511 - Pain in right shoulder Plan: Has been having worsening right shoulder pain and continues to follow with [facility] ortho for workup at this time. Orders: Orders Free T4 (Free Thyroxine) Today G43.909 - Migraine, unspecified, not intractable, without status migrainosus, Z00.00 - Encounter for general adult medical examination without abnormal findings Vitamin B12 and Folate Today Z13.21 - Encounter for screening for nutritional disorder Vitamin D 25-OH Total Today Z00.00 - Encounter for general adult medical examination without abnormal findings Complete Blood Count Auto Diff Today N93.9 - Abnormal uterine and vaginal bleeding, unspecified, Z00.00 - Encounter for general adult medical examination without abnormal findings Comprehensive Met. Panel Today G43.909 - Migraine, unspecified, not intractable, without status migrainosus, Z00.00 - Encounter for general adult medical examination without abnormal findings TSH reflex Free T4 Today G43.909 - Migraine, unspecified, not intractable, without status migrainosus, Z00.00 - Encounter for general adult medical examination without abnormal findings Medications: New amitriptyline 25 mg PO BEDTIME 90 tabs 0RF Discontinued amitriptyline Discontinued Reason: Patient no longer taking 10 mg PO BEDTIME 90 tabs 0RF
--- OUTSIDE RECORDS SUMMARY | 2025-01-13 14:05 | XMS_ITS | Patient Health Record ---
Author Organization [facility] tyrone Thermal Address [address] [place] [address] Care Team Providers Care Artificial Candy Maker Name Role Phone Huong Major Primary Care Provider José Messina Unavailable [phone] Allergies No Known Allergies Reason For Referral [...] Status Risk Notes Problem Plantar fascial fibromatosis (31414904) Plantar fascial fibromatosis (M72.2) Active confirmed Plan Of Treatment Pending Test Test Name Order Date MRI : Ankle, right 07/26/2022 X ray : Foot, right 3V 05/26/2022 [id number] TENDON SHEATH/LIGAMENT 1 07/27/2021 Insurance Providers Payer Name Payer Address Payer Phone Subscriber Number Group Number Insured Name Patient Relationship to Insured Coverage Start Date Coverage End Date [facility] [address] [place], [place] [address] [id number] Destinee Childs Self - patient is the insured Medical (General) History Medical History History ICD Code asthma Headaches/Migraines Surgical History Surgery Date(Month/Year) heel surgery, heel spur right foot elbow sx, right tubal ligation
== END 2025-01-13 14:26 | disposition home or self-care (01) ==
LOC: HO.HMCH 13:53
PROVIDERS: PCP Internal Medicine
DX: J45.20 Mild intermittent asthma, uncomplicated (principal); G43.909 Migraine, unspecified, not intractable, without status migrainosus; E66.9 Obesity, unspecified; M25.511 Pain in right shoulder; E78.00 Pure hypercholesterolemia, unspecified

== ENCOUNTER 2025-01-16 15:11 | Outpatient (REF) | payer BC, SELFPAY ==
--- OUTSIDE RECORDS SUMMARY | 2025-01-16 15:13 | XMS_ITS | Patient Health Record ---
Author Organization [facility] tyrone Riegelwood Address [address] [facility] [place] [address] Care Team Providers Care Director [employer] Name Role Phone Huong Major Primary Care Provider José Messina Unavailable [phone] Allergies No Known Allergies Reason For Referral [...] X ray : Foot, right 3V 05/26/2022 [id number] TENDON SHEATH/LIGAMENT 1 07/27/2021 Insurance Providers Payer Name Payer Address Payer Phone Subscriber Number Group Number Insured Name Patient Relationship to Insured Coverage Start Date Coverage End Date [facility] [address] [place] [address] [id number] Destinee Childs Self - patient is the insured Medical (General) History Medical History History ICD Code asthma Headaches/Migraines Surgical History Surgery Date(Month/Year) heel surgery, heel spur right foot elbow sx, right tubal ligation
--- NOTE | 2025-01-16 15:22 | EMG_ITS ---
Chief complaint: Chronic right anterior chest pain/numbness/tingling that radiate towards the right arm and fingers, since a fall in 2019. Reason for referral: Evaluate for brachial plexopathy Referred by: Barbie ARIZA Procedure done: right upper extremity NCS/EMG Precautions and/or limitations: None The limb temperature was monitored continuously and remained between 32-36 degrees C during the performance of the NCS. Nerve Conduction Studies Anti Sensory Summary Table ?Stim Site NR Onset (ms) Norm Onset (ms) Peak (ms) Norm Peak (ms) O-P Amp (?V) Norm O-P Amp Site1 Site2 Delta-0 (ms) Dist (cm) Andre (m/s) Norm Andre (m/s) Right Lat Ante Brach Cutan Anti Sensory (Lat Forearm) Lat Biceps ? 0.2 0.4 35.8 Lat Biceps Lat Forearm 0.2 0.0 Right Med Ante Brach Cutan Anti Sensory (Med Forearm) Elbow ? 1.0 2.2 84.5 Elbow Med Forearm 1.0 0.0 Right Median Anti Sensory (2nd Digit) Wrist ? 2.3 3.2 <3.6 26.6 >10 Wrist 2nd Digit 2.3 14.0 61 Right Radial Anti Sensory (Thumb) Forearm ? 1.5 1.8 <3.1 26.8 Forearm Thumb 1.5 0.0 Right Ulnar Anti Sensory (5th Digit) Wrist ? 1.9 2.6 <3.7 25.1 >15.0 Wrist 5th Digit 1.9 14.0 74 Motor Summary Table ?Stim Site NR Onset (ms) Norm Onset (ms) O-P Amp (mV) Norm O-P Amp iAmp (mV) Amp (1st) (%) Site1 Site2 Delta-0 (ms) Dist (cm) Andre (m/s) Norm Andre (m/s) Right Median Motor (Abd Poll Brev) Wrist ? 3.4 <3.9 8.4 >4.5 9.7 100.0 Elbow Wrist 4.0 22.0 55 >45 Elbow ? 7.4 8.6 9.8 102.4 Right Ulnar Motor (Abd Dig Minimi) Wrist ? 2.3 <3.0 13.6 >5 16.9 100.0 B Elbow Wrist 3.0 19.5 65 >45 B Elbow ? 5.3 9.5 12.4 69.9 A Elbow B Elbow 1.3 10.0 77 >45 A Elbow ? 6.6 9.8 12.5 72.1 EMG ?Side Muscle Nerve Root Ins Act Fibs Psw Amp Dur Poly Recrt Int Pat Comment Right 1stDorInt Ulnar C8-T1 Nml Nml Nml Nml Nml 0 Nml Complete Right FlexCarRad Median C6-7 Nml Nml Nml Nml Nml 0 Nml Complete Right FlexCarpiUln Ulnar C8,T1 Nml Nml Nml Nml Nml 0 Nml Complete Right Biceps Musculocut C5-6 Nml Nml Nml Nml Nml 0 Nml Complete Right Triceps Radial C6-7-8 Nml Nml Nml Nml Nml 0 Nml Complete Right Deltoid Axillary C5-6 Nml Nml Nml Nml Nml 0 Nml Complete FINDINGS: All motor and sensory nerves tested showed normal latencies, amplitudes and conduction velocities. Concentric needle EMG was performed in selected muscles of the right upper extremity. Study did not reveal signs of electric abnormalities as shown in the table above. IMPRESSION: 1. This is a normal study. 2. There is no electrodiagnostic evidence for median neuropathy, ulnar neuropathy, brachial plexopathy, or cervical radiculopathy. Thank you for your kind referral. Faye Mejía MD, MIGUEL A Board Certified, [place] Board of Physical Medicine and Rehabilitation (ABPMR) Board Certified, [place] Board of Electrodiagnostic Medicine (ABEM) CODIN [address] MTDD
== END 2025-01-16 15:12 | disposition home or self-care (01) ==
LOC: HO.NEURO 15:11
PROVIDERS: PCP Internal Medicine; Visit Provider Physician Assistant
DX: R20.0 Anesthesia of skin (principal); R20.2 Paresthesia of skin; M54.2 Cervicalgia; M25.511 Pain in right shoulder
CPT/HCPCS: 95886; 95909

== ENCOUNTER → 2025-01-16 15:22 | Outpatient (BNV) | payer BC, SELFPAY | PROVIDERS: PCP Internal Medicine; Visit Provider Physical Medicine & Rehabilitation | DX: R20.0 Anesthesia of skin (principal); R20.2 Paresthesia of skin; R07.89 Other chest pain | CPT/HCPCS: 95886; 95909 ==

== ENCOUNTER 2025-02-04 07:37 | Outpatient (AMB) | payer BC, SELFPAY ==
[2025-02-04 07:43] VITALS: BP 110/76; BMI 36.6
--- NOTE | 2025-02-04 07:43 | A.OFFVIS_ITS ---
Intake Visit Reasons: EMB/ Ultra sound follow up Allergies barium sulfate Allergy (Unknown, Verified 12/17/24 15:21) Nightmare codeine Allergy (Unknown, Verified 12/17/24 15:21) codeine phosphate, ITCHY varenicline (From Chantix) Allergy (Unknown, Verified 12/17/24 15:21) nightmares HPI Comments Details: Presenting for EMB [facility] Medical History Annual physical exam Hypersomnia Pelvic floor weakness in female Well woman exam with routine gynecological exam Family history of colon cancer Painful arc syndrome of right shoulder Breast cancer screening by mammogram Smoker Obesity, morbid, BMI 40.0-49.9 Well woman exam with routine gynecological exam Rotator cuff impingement syndrome of right shoulder Lumbar disc herniation Rotator cuff tear, left Labral tear of left hip joint Wedge compression fracture of T11 vertebra Cervical disc herniation ASCUS of cervix with negative high risk HPV Migraine Tobacco abuse Anxiety Asthma GERD (gastroesophageal reflux disease) Lateral epicondylitis of right elbow Surgical History History of elbow surgery History of tubal ligation History of foot surgery Family History Mother Depression with anxiety Colon cancer, Onset Age: 50 Myocardial infarction Father No problems noted. 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 hysteroscopy D&C) & the risks were discussed with the patient including but not limited: pain, uterine perforation, bleeding, infection, possible injury to bladder, bowel, ureter, possible need for blood transfusion with all its possible risks. The patient verbalized understanding all questions answered and signed consent. Urine test done in the office was negative The patient was placed into the dorsal lithotomy position; a speculum was inserted in the vagina. Using aseptic technique for the procedure, the cervix was cleansed with Betadine. The anterior lip of the cervix was grasped with a single tooth tenaculum. The uterus was sounded to 7 cm with a 4 mm Pipelle was used. Tissues samples were obtained and placed in formalin, in a patient labeled container and sent to the pathology department. At the end of the procedure, there was minimal blee ding noted The patient tolerated the procedure well and was discharged in good condition with the following instructions: Nothing in the vagina until the bleeding stops. No sex until the bleeding stops, to call if any of the following occurs: fever (>100.4), flu-like symptoms, abdominal pain, heavy bleeding, four smelling vaginal discharge. The patient was instructed to schedule a Follow up appointment in 2 weeks to discuss pathology results of the biopsy and treatment options. This note was generated with a voice recognition program. Some errors may have been overlooked during the review of this note. Sometimes these errors may affect the content or meaning of a given sentence. [id number] Biopsy Assessment & Plan Assessment & Plan (1) Abnormal uterine bleeding (AUB): Code(s): N93.9 - Abnormal uterine and vaginal bleeding, unspecified Category: Medical Plan: EMB done, see procedure note Orders: Orders AMB Endometrial Biopsy Today N93.9 - Abnormal uterine and vaginal bleeding, unspecified Coding Level of Care Code Procedure Only Diagnoses Abnormal uterine bleeding (AUB) N93.9 CPT Codes Endometrial Biopsy - CPT: 12340-[id number] Biopsy ([id number])
--- OUTSIDE RECORDS SUMMARY | 2025-02-04 07:44 | XMS_ITS | Patient Health Record ---
Author Organization [facility] tyrone Garden Address [address] [place] [address] Care Team Providers Care Forestry Faculty Member Name Role Phone Houng Major Primary Care Provider José Messina Unavailable [phone] Allergies No Known Allergies Reason For Referral [...] Status Risk Notes Problem Plantar fascial fibromatosis ([id number]) Plantar fascial fibromatosis (M72.2) Active confirmed Plan Of Treatment Pending Test Test Name Order Date MRI : Ankle, right 07/26/2022 X ray : Foot, right 3V 05/26/2022 [id number] TENDON SHEATH/LIGAMENT 1 07/27/2021 Insurance Providers Payer Name Payer Address Payer Phone Subscriber Number Group Number Insured Name Patient Relationship to Insured Coverage Start Date Coverage End Date [facility] [address] [place], [place] [address] [id number] Destinee Childs Self - patient is the insured Medical (General) History Medical History History ICD Code asthma Headaches/Migraines Surgical History Surgery Date(Month/Year) heel surgery, heel spur right foot elbow sx, right tubal ligation
== END 2025-02-04 08:07 | disposition home or self-care (01) ==
LOC: HO.HWS 07:37
PROVIDERS: PCP Internal Medicine; Visit Provider Obstetrics & Gynecology
DX: N93.9 Abnormal uterine and vaginal bleeding, unspecified (principal); Z32.02 Encounter for pregnancy test, result negative
CPT/HCPCS: 58100

== ENCOUNTER 2025-02-04 07:37 | Outpatient (REF) | payer BC, SELFPAY | END 2025-02-04 07:38 | disposition home or self-care (01) | LOC: HO.LNP 07:37 | PROVIDERS: PCP Internal Medicine; Visit Provider Obstetrics & Gynecology | DX: N93.9 Abnormal uterine and vaginal bleeding, unspecified (principal); Z32.02 Encounter for pregnancy test, result negative | CPT/HCPCS: 58100; 81025; 88305 ==

== ENCOUNTER 2025-02-19 07:32 | Outpatient (AMB) | payer BC, SELFPAY ==
[2025-02-19 07:33] VITALS: BP 118/72; BMI 36.6
--- NOTE | 2025-02-19 07:33 | A.OFFVIS_ITS ---
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 The patient has no complaints, no vaginal bleeding, no feverishness chills or abdominal pain. The endometrial biopsy pathology report showed the following: Endometrium, biopsy: Proliferative endometrium; fragments with features of polyp; no atypia identified. [facility] Medical History Annual physical exam Hypersomnia Pelvic floor weakness in female Well woman exam with routine gynecological exam Family history of colon cancer Painful arc syndrome of right shoulder Breast cancer screening by mammogram Smoker Obesity, morbid, BMI 40.0-49.9 Well woman exam with routine gynecological exam Rotator cuff impingement syndrome of right shoulder Lumbar disc herniation Rotator cuff tear, left Labral tear of left hip joint Wedge compression fracture of T11 vertebra Cervical disc herniation ASCUS of cervix with negative high risk HPV Migraine Tobacco abuse Anxiety Asthma GERD (gastroesophageal reflux disease) Lateral epicondylitis of right elbow Surgical History History of elbow surgery History of tubal ligation History of foot surgery Family History Mother Depression with anxiety Colon cancer, Onset Age: 50 Myocardial infarction Father No problems noted. 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 Cognitive needs: No Hearing needs: No Vision needs: No Female Reproductive History Menstrual Age of Menarche: 15 Date of last menstrual period: 04/09/20 Total pregnancies: 2 Full term: 2 Review of Systems Card Reports as per HPI and Reports no additional complaints Resp Reports as per HPI and Reports no additional complaints GI Reports as per HPI and Reports no additional complaints Reports as per HPI Physical Exam Vital Signs: Last Vital Signs BP 118/72 02/19/25 07:33 BMI result Body Mass Index 36.6 Const General: cooperative, healthy appearing and comfortable Resp Effort & Inspection: normal respiratory effort Auscultation: clear to auscultation bilaterally Percussion: percussion normal Cardio Palpation: normal PMI Rate: regular rate Rhythm: regular rhythm Heart sounds: no murmurs and no rubs Peripheral pulses: Peripheral pulses 2+ throughout GI Inspection: Yes normal to inspection Palpation (GI): Soft to palpation, nontender, no guarding, not rigid and No hepatosplenomegaly present Percussion: Yes normal to percussion Auscultation: normal bowel sounds Rectal Exam - Female: deferred Assessment & Plan Assessment & Plan (1) Abnormal uterine bleeding (AUB): Comment: Fragments of endometrial polyp by EMB pathology Code(s): N93.9 - Abnormal uterine and vaginal bleeding, unspecified Category: Medical Plan: Discussed with the patient the results of the EMB pathology showing fragments of endometrial polyp. Recommended hysteroscopy D&C polypectomy/myomectomy. Discussed with the patient the procedure , all benefits and risks including but not limited to inability to complete the procedure , insufficient endometrial tissue for a complete evaluation of the endometrial cavity , bleeding, infection, possible need for blood transfusion with all its risk ( HIV,syphilis, Hepatitis, anaphylaxis shock, others..), injury to bladder, rectum, possible need for laparoscopy/laparotomy or hysterectomy. The patient verbalized understanding and signed the consent. Instructions given the patient to stay NPO after midnight the day prior to the procedure and to take only the specific medication (s) discussed the morning of the surgical procedure and to schedule a 2 week postoperative appointment Coding Level of Care Code Est Pt Level 3 (85561) Diagnoses Abnormal uterine bleeding (AUB) N93.9
--- OUTSIDE RECORDS SUMMARY | 2025-02-19 07:35 | XMS_ITS | Patient Health Record ---
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 Name Role Phone Huong Major Primary Care Provider José Messina Unavailable [phone] Allergies No Known Allergies Reason For Referral [...] Status Risk Notes Problem Plantar fascial fibromatosis (74052448) Plantar fascial fibromatosis (M72.2) Active confirmed Plan Of Treatment Pending Test Test Name Order Date MRI : Ankle, right 07/26/2022 X ray : Foot, right 3V 05/26/2022 [id number] TENDON SHEATH/LIGAMENT 1 07/27/2021 Insurance Providers Payer Name Payer Address Payer Phone Subscriber Number Group Number Insured Name Patient Relationship to Insured Coverage Start Date Coverage End Date [facility] [address] [place] [place], [place] [address] [id number] Destinee Childs Self - patient is the insured Medical (General) History Medical History History ICD Code asthma Headaches/Migraines Surgical History Surgery Date(Month/Year) heel surgery, heel spur right foot elbow sx, right tubal ligation
== END 2025-02-19 08:01 | disposition home or self-care (01) ==
LOC: HO.HWS 07:32
PROVIDERS: PCP Internal Medicine; Visit Provider Obstetrics & Gynecology
DX: N93.9 Abnormal uterine and vaginal bleeding, unspecified (principal)
CPT/HCPCS: 99213

== ENCOUNTER 2025-03-18 11:12 | Outpatient (AMB) | payer BC, SELFPAY ==
--- NOTE | 2025-03-18 11:12 | MHC.PC.OV ---
Intake Visit Reasons: follow up Allergies barium sulfate Allergy (Intermediate, Verified 03/18/25 11:45) Nightmare codeine Allergy (Intermediate, Verified 03/18/25 11:45) Itching varenicline (From Chantix) Allergy (Intermediate, Verified 03/18/25 11:45) nightmares Medication List - Last Reconciled 03/18/25 by Bernadette Cortez PA-C albuterol sulfate 90 mcg/actuation 2 puffs inhalation Q6H PRN amitriptyline 25 mg PO BEDTIME cholecalciferol (vitamin D3) 100 mcg (2 x 50 mcg (2,000 unit)) PO DAILY gabapentin 300 mg PO TID 30 days hydroxyzine HCl 25 mg PO BID ipratropium-albuterol 0.5 mg-3 mg(2.5 mg base)/3 mL 3 mL inhalation TID PRN ipratropium-albuterol 20-100 mcg/actuation (Combivent Respimat) 1 puff PO Q6H nebulizers (Mini Plus Nebulizer [facility]) As directed omeprazole 20 mg PO BID 90 days oxybutynin chloride 10 mg PO BEDTIME sumatriptan succinate take 1 tab at onset of headache; if no relief, may repeat 1 tab after at least 2 hrs; max = 2 tabs/24 hrs PO tizanidine 4 mg PO TID PRN Tobacco use date assessed: 03/18/25 Dental Screening Dental Screen Date: 03/18/25 Did you have a dental visit in the last 12 months?: Yes Did you have a dental problem in the last 6 months where you did not have access to dental care?: No Was dental information given to patient?: Patient has dentist HPI follow up HPI Details 45-year-old female with past medical history of GERD, asthma, tobacco abuse, generalized anxiety disorder, obstructive sleep apnea and urge incontinence last seen 01/2025 presenting via telehealth for follow up. Presenting with asthma management and preparation for an upcoming hysterectomy. The patient reports increased use of albuterol due to allergy season, using it daily compared to three times a week previously. She has been using Combivent daily even before allergy season, indicating poorly controlled asthma. The patient smokes cigarettes, which exacerbates her asthma, and has tried nicotine patches but experienced skin irritation. The patient reports improvement in migraine severity with amitriptyline, but is considering a dosage increase for better control. The patient is scheduled for a hysterectomy in March to address bleeding issues. [facility] Medical History Hypersomnia Pelvic floor weakness in female Family history of colon cancer Painful arc syndrome of right shoulder Breast cancer screening by mammogram Smoker Rotator cuff impingement syndrome of right shoulder Lumbar disc herniation Rotator cuff tear, left Labral tear of left hip joint Wedge compression fracture of T11 vertebra Cervical disc herniation ASCUS of cervix with negative high risk HPV Migraine Tobacco abuse Anxiety Asthma GERD (gastroesophageal reflux disease) Lateral epicondylitis of right elbow Surgical History History of esophagogastroduodenoscopy (EGD) H/O colonoscopy History of elbow surgery History of tubal ligation History of foot surgery Family History Mother Depression with anxiety Colon cancer, Onset Age: 50 Myocardial infarction Father No problems noted. 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 1. Little interest or pleasure in doing things: not at all 2. Feeling down, depressed, or hopeless: not at all 3. Trouble falling or staying asleep, or sleeping too much: not at all 4. Feeling tired or having little energy: not at all 5. Poor appetite or overeating: not at all 6. Feeling bad about yourself - or that you are a failure or have let yourself or your family down: not at all 7. Trouble concentrating on things, such as reading the newspaper or watching television: not at all 8. Moving or speaking so slowly that other people could have noticed. Or the opposite - being so fidgety or restless that you have been moving around a lot more than usual: not at all 9. Thoughts that you would be better off or of hurting yourself in some way: not at all Total score: 0 Depression Screening Interpretation: Negative Depression Screening Done: Yes Source: Developed by Drs. Sathish Bui, Adriana Watts, Vladislav Espinoza and colleagues, with an educational dominick from [employer]. Thrive Questionnaire Date Thrive assessed: 08/19/24 I am a: Patient What is your living situation today?: I have a steady place to live Within the past 12 months, did the food you bought not last and you didn't have the money to get more?: Sometimes True Within the past 12 months, did you worry whether your food would run out before you got money to buy more?: Sometimes True Do you have trouble paying for medicines?: No Do you have trouble getting transportation to medical appointments?: No Do you have trouble paying your heating and electricity bill?: No Do you have trouble taking care of your child, family member or friend?: No Do you have trouble with day-to-day activities such as bathing, preparing meals, shopping, managing finances, etc.?: No Are you currently unemployed and looking for a job?: No Are you interested in more education?: No Please select the resources that you would like help with: None Currently or been in a relationship where the following occur: No concerns reported THRIVE Score: 2 AUDIT C Alcohol Use Questionnaire (AUDIT-C) 1. How often do you have a drink containing alcohol?: Never 3. How often do you have six or more drinks on one occasion?: Never Total Score: 0 ADELAIDA-7 AMB Questionnaire ADELAIDA-7 Date ADELAIDA - 7 assessed: 08/19/24 Feeling nervous, anxious, or on edge: 3 = Nearly every day Not being able to stop or control worryin = Nearly every day Worrying too much about different things: 3 = Nearly every day Trouble relaxin = More than half the days Being so restless that it is hard to sit still: 1 = Several days Becoming easily annoyed or irritable: 3 = Nearly every day Feeling afraid as if something awful might happen: 2 = More than half the days Total ADELAIDA-7 score (0-4 normal; 5-9 mild; 10-14 moderate; 15-21 severe): 17 Source: Developed by Drs. Sathish Bui, Adriana Watts, Vladislav Espinoza and colleagues, with an educational dominick from [employer]. Review of Systems Const Denies body aches, Denies chills, Denies fever(s), Reports headache(s) and Denies poor appetite Eyes Reports no additional complaints ENT Denies dizziness and Reports headache(s) Card Denies chest pain, Denies lightheadedness and Reports dyspnea Resp Reports dyspnea GI Denies abdominal pain, Denies nausea and Denies vomiting Reports no additional complaints Musc Reports no additional complaints and Denies abnormal gait Skin/Breast Reports system reviewed and no additional complaints, except as documented Neuro Denies abnormal gait, Denies dizziness and Reports headache(s) Psych Reports no additional complaints Physical exam (Primary Care) Vital Signs: Physical exam not performed due to telehealth visit Tobacco/Smoking Status: Tobacco use Status Tobacco use date assessed 03/18/25 03/18/25 11:14 Patient Tobacco Use Status Current everyday Tobacco 03/18/25 11:14 e-Cigarette/Vaping Use Never Used 03/18/25 11:14 PHQ-9: PHQ-9 Score PHQ-9: Total score 0 03/18/25 11:14 Depression Screening Interpretation: Negative Thrive Assessment: Date of Thrive Assessment Date Thrive assessed 08/19/24 03/18/25 11:14 Currently or been in a relationship where the following occur: No concerns reported Telehealth Telehealth Telehealth Platform: Telephone Location of provider rendering services: practice address Location of patient: address on file Patient Identification confirmed using: Name, : Yes Telehealth method: voice only Patient verbally consented to treatment: Yes Patient verbally consented to billing insurance company: Yes Patient informed of any privacy concerns related to visit: Yes Coding Level of Care Code Est Pt Level 3 (44094) Diagnoses Hypercholesterolemia E78.00 Obesity (BMI 30.0-34.9) E66.9 Mild intermittent asthma without complication J45.20 Asthma severity: mild Asthma persistence: intermittent Asthma complication type: uncomplicated Migraine G43.909 Tobacco use disorder F17.200 Assessment & Plan Assessment & Plan (1) Hypercholesterolemia: Code(s): E78.00 - Pure hypercholesterolemia, unspecified Category: Medical Plan: Avoid foods that are high in cholesterol such as red meat, fried foods, eggs and baked goods. Triglyceride goal of less than 150 and LDL goal of less than 130. Reminded patient about blood work and agrees to have it done this weekend. (2) Obesity (BMI 30.0-34.9): Code(s): E66.9 - Obesity, unspecified Category: Medical Plan: Healthy diet and regular exercise is encouraged. (3) Asthma: Code(s): J45.909 - Unspecified asthma, uncomplicated Category: Medical Qualifiers: Asthma severity: mild Asthma persistence: intermittent Asthma complication type: uncomplicated Qualified Code(s): J45.20 - Mild intermittent asthma, uncomplicated Plan: Asthma not well controlled on current inhalers plan to trial maintenance inhaler. Follow up in 6 weeks. Avoid triggers such as allergies. (4) Migraine: Code(s): G43.909 - Migraine, unspecified, not intractable, without status migrainosus Category: Medical Plan: She has not been seen by Neurology but has been doing well on the Amitriptyline but would like to increase to a higher dose as it has been helping her with the migraines. She has seen an improvement in both severity and frequency. (5) Tobacco use disorder: Code(s): F17.200 - Nicotine dependence, unspecified, uncomplicated Category: Medical Plan: Smoking cigarettes and the use of tobacco can be harmful. We discussed the importance of stopping and options to aid in smoking cessation. Discussed NRT which was declined today. Plan This note was constructed using voice recognition software. While every effort has been made to ensure accuracy and business broker, still areas may have been included sometimes these areas may affect the content or meeting of the given symptoms. Total time spent caring for the patient today was 20 minutes. This includes time spent before the visit reviewing the chart, time spent during the visit, and time spent after the visit and documentation. Patient was informed and verbally consented to the use of an ambient scribe for clinic note documentation during this visit. Orders: Orders Lipid Panel Today E78.00 - Pure hypercholesterolemia, unspecified Medications: New bupropion HCl SR (Wellbutrin SR) 150 mg PO DAILY 90 tabs 0RF amitriptyline 50 mg PO BEDTIME 90 tabs 0RF fluticasone furoate-vilanterol 100-25 mcg/dose (Breo Ellipta) 1 inh inhalation DAILY 60 ea 0RF Discontinued amitriptyline Discontinued Reason: Patient no longer taking 25 mg PO BEDTIME 90 tabs 0RF
--- OUTSIDE RECORDS SUMMARY | 2025-03-18 13:59 | XMS_ITS | Patient Health Record ---
Author Organization [facility] [place] Address [address] [place] [address] Care Team Providers Care Paper Supervisor Name Role Phone Huong Major Primary Care Provider José Enriquez Unavailable [phone] Allergies No Known Allergies Reason For Referral [...] Status Risk Notes Problem Plantar fascial fibromatosis ([id number]) Plantar fascial fibromatosis (M72.2) Active confirmed Plan Of Treatment Pending Test Test Name Order Date MRI : Ankle, right 07/26/2022 X ray : Foot, right 3V 05/26/2022 [id number] TENDON SHEATH/LIGAMENT 1 07/27/2021 Insurance Providers Payer Name Payer Address Payer Phone Subscriber Number Group Number Insured Name Patient Relationship to Insured Coverage Start Date Coverage End Date [facility] [address] [place] [address] [id number] Destinee Childs Self - patient is the insured Medical (General) History Medical History History ICD Code asthma Headaches/Migraines Surgical History Surgery Date(Month/Year) heel surgery, heel spur right foot elbow sx, right tubal ligation
== END 2025-03-18 12:05 | disposition home or self-care (01) ==
LOC: HO.HMCH 11:12
PROVIDERS: PCP Internal Medicine
DX: E78.00 Pure hypercholesterolemia, unspecified (principal); E66.9 Obesity, unspecified; J45.20 Mild intermittent asthma, uncomplicated; G43.909 Migraine, unspecified, not intractable, without status migrainosus; F17.200 Nicotine dependence, unspecified, uncomplicated

== ENCOUNTER 2025-03-22 07:25 | Outpatient (REF) | payer BC, SELFPAY ==
--- OUTSIDE RECORDS SUMMARY | 2025-03-22 07:29 | XMS_ITS | Patient Health Record ---
Author Organization [facility] [place] Address [address] [place] [address] Care Team Providers Care Book Retailer Name Role Phone Huong Major Primary Care Provider José Enriquez Unavailable [phone] Allergies No Known Allergies Reason For Referral [...] Status Risk Notes Problem Plantar fascial fibromatosis ([id number]) Plantar fascial fibromatosis (M72.2) Active confirmed Plan Of Treatment Pending Test Test Name Order Date MRI : Ankle, right 07/26/2022 X ray : Foot, right 3V 05/26/2022 [id number] TENDON SHEATH/LIGAMENT 1 07/27/2021 Insurance Providers Payer Name Payer Address Payer Phone Subscriber Number Group Number Insured Name Patient Relationship to Insured Coverage Start Date Coverage End Date [facility] [address] [facility] [place] [address] [id number] Destinee Childs Self - patient is the insured Medical (General) History Medical History History ICD Code asthma Headaches/Migraines Surgical History Surgery Date(Month/Year) heel surgery, heel spur right foot elbow sx, right tubal ligation
[2025-03-22 07:52] LABS: MANUAL DIFF FLAG NO
[2025-03-22 08:13] LABS: Hematocrit 43.6 % (37.0-47.0); Hemoglobin 14.2 g/dl (12.0-16.0); Imm Gran Abs Auto 0.06 X10*3/uL (0.00-0.03); Imm Gran Pct Auto 0.5 % (0.0-0.4); Lymphocytes Absolute Auto 3.0 X10*3/uL (1.2-4.9); Mean Corpuscular HGB Conc 32.6 g/dl (31.0-35.0); Mean Corpuscular Hemoglobin 29.2 pg (27.0-33.0); Mean Corpuscular Volume 89.5 fL (80.0-98.0); NRBC Abs Auto 0.000 X10*3/uL (0.0-0.012); NRBC Pct Auto 0.0 /100WBC (0.0-0.2); Platelet Count 319 X10*3/uL (160-400); Red Blood Count 4.87 X10*6/uL (4.20-5.50); White Blood Count 12.8 X10*3/uL (4.8-10.8)
[2025-03-22 09:17] LABS: Alanine Aminotransferase 6 U/L (0-31); Albumin Level 3.9 g/dL (3.5-5.0); Alkaline Phosphatase 84 U/L (39-117); Anion Gap 14 (12-20); Aspartate Amino Transferase 16 U/L (5-31); Blood Urea Nitrogen 11 mg/dL (9-16); Calcium 8.7 mg/dL (8.4-10.2); Carbon Dioxide 23 mmol/L (22-29); Chloride 107 mmol/L (96-108); Cholesterol 178 mg/dL (<200); Estimated Glomerular Filt Rate > 60; HDL Cholesterol 38 mg/dL (>40); Potassium 4.2 mmol/L (3.3-5.1); Sodium 140 mmol/L (135-145); Total Protein 6.8 g/dL (6.5-8.0); Triglycerides 60 mg/dL (<150)
[2025-03-22 09:25] LABS: Free T4 (Free Thyroxine) 1.11 ng/dL (0.71-1.85)
[2025-03-22 09:33] LABS: Folate 8.9 ng/mL (> or = 4.0); Vitamin B12 200 pg/mL (200-900)
== END 2025-03-22 07:26 | disposition home or self-care (01) ==
LOC: HO.LAB 07:25
PROVIDERS: PCP Internal Medicine
DX: Z00.00 Encounter for general adult medical examination without abnormal findings (principal); Z13.21 Encounter for screening for nutritional disorder; Z13.1 Encounter for screening for diabetes mellitus; E66.9 Obesity, unspecified; G43.909 Migraine, unspecified, not intractable, without status migrainosus; E78.00 Pure hypercholesterolemia, unspecified; N93.9 Abnormal uterine and vaginal bleeding, unspecified
CPT/HCPCS: 36415; 80053; 80061; 82306; 82607; 82746; 83036; 84439; 84443; 85025

== ENCOUNTER 2025-04-04 14:31 | Outpatient (AMB) | payer BC, SELFPAY ==
--- NOTE | 2025-04-04 14:40 | A.OFFVIS_ITS ---
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 The patient canceled and rescheduled last scheduled procedure. [facility] Medical History Hypersomnia Pelvic floor weakness in female Family history of colon cancer Painful arc syndrome of right shoulder Breast cancer screening by mammogram Smoker Rotator cuff impingement syndrome of right shoulder Lumbar disc herniation Rotator cuff tear, left Labral tear of left hip joint Wedge compression fracture of T11 vertebra Cervical disc herniation ASCUS of cervix with negative high risk HPV Migraine Tobacco abuse Anxiety Asthma GERD (gastroesophageal reflux disease) Lateral epicondylitis of right elbow Surgical History History of esophagogastroduodenoscopy (EGD) H/O colonoscopy History of elbow surgery History of tubal ligation History of foot surgery Family History Mother Depression with anxiety Colon cancer, Onset Age: 50 Myocardial infarction Father No problems noted. 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 Cognitive needs: No Hearing needs: No Vision needs: No Female Reproductive History Menstrual Age of Menarche: 15 Date of last menstrual period: 04/09/20 Total pregnancies: 2 Full term: 2 Review of Systems Card Reports as per HPI and Reports no additional complaints Resp Reports as per HPI and Reports no additional complaints GI Reports as per HPI and Reports no additional complaints Reports as per HPI Physical Exam Vital Signs: Last Vital Signs BP 124/82 04/04/25 14:42 BMI result Body Mass Index 36.6 Const General: cooperative, healthy appearing and comfortable Resp Effort & Inspection: normal respiratory effort Auscultation: clear to auscultation bilaterally Percussion: percussion normal Cardio Palpation: normal PMI Rate: regular rate Rhythm: regular rhythm Heart sounds: no murmurs and no rubs Peripheral pulses: Peripheral pulses 2+ throughout GI Inspection: Yes normal to inspection Palpation (GI): Soft to palpation, nontender, no guarding, not rigid and No hepatosplenomegaly present Percussion: Yes normal to percussion Auscultation: normal bowel sounds Rectal Exam - Female: deferred Assessment & Plan Assessment & Plan (1) Abnormal uterine bleeding (AUB): Comment: Fragments of endometrial polyp by EMB pathology Code(s): N93.9 - Abnormal uterine and vaginal bleeding, unspecified Category: Medical Plan: Discussed with the patient the results the pathology, fragments of endometrial polyp, recommended hysteroscopy D&C possible polypectomy/myomectomy. Discussed with the patient the procedure , all benefits and risks including but not limited to inability to complete the procedure , insufficient endometrial tissue for a complete evaluation of the endometrial cavity , bleeding, infection, possible need for blood transfusion with all its risk ( HIV,syphilis, Hepatitis, anaphylaxis shock, others..), injury to bladder, rectum, possible need for laparoscopy/laparotomy or hysterectomy. The patient verbalized understanding and signed the consent. Instructions given the patient to stay NPO after midnight the day prior to the procedure and not to take only any medications the morning of the procedure. Instructions given to patient to schedule a 2 week postoperative appointment Coding Level of Care Code Est Pt Level 3 (10588) Diagnoses Abnormal uterine bleeding (AUB) N93.9
[2025-04-04 14:42] VITALS: BP 124/82; BMI 36.6
--- OUTSIDE RECORDS SUMMARY | 2025-04-04 16:23 | XMS_ITS | Patient Health Record ---
[facility] tyrone Waldo Address [address] [place] [address] Care Team Providers Care Quilt Stuffer Name Role Phone Huong Major Primary Care Provider José Enriquez Unavailable [phone] Allergies No Known Allergies Reason For Referral [...] Status Risk Notes Problem Plantar fascial fibromatosis (13654585) Plantar fascial fibromatosis (M72.2) Active confirmed Plan Of Treatment Pending Test Test Name Order Date MRI : Ankle, right 07/26/2022 X ray : Foot, right 3V 05/26/2022 [id number] TENDON SHEATH/LIGAMENT 1 07/27/2021 Insurance Providers Payer Name Payer Address Payer Phone Subscriber Number Group Number Insured Name Patient Relationship to Insured Coverage Start Date Coverage End Date [facility] [address] [place] [address] [id number] Destinee Childs Self - patient is the insured Medical (General) History Medical History History ICD Code asthma Headaches/Migraines Surgical History Surgery Date(Month/Year) heel surgery, heel spur right foot elbow sx, right tubal ligation
== END 2025-04-04 14:47 | disposition home or self-care (01) ==
PROVIDERS: PCP Internal Medicine; Visit Provider Obstetrics & Gynecology
DX: N93.9 Abnormal uterine and vaginal bleeding, unspecified (principal)
CPT/HCPCS: 99213

== ENCOUNTER 2025-04-11 06:22 | Day surgery (SDC) | payer BC, SELFPAY ==
[2025-03-12 13:03] VITALS: BMI 36.6
--- NOTE | 2025-04-08 14:33 | HO.ANESPROP2 ---
Documented by User: Maria L Steve NP 04/08/25 14:40 HPI - Anesthesia Eval Consult details Narrative: 45 yr old female for D&C Hysteroscopy, possible myomectomy, possible polypectomy +Smoker Asthma: saw PCP 03/18/25, reports daily use of albuterol, CHADWICK, was started on Breo, advised to follow up in 6 weeks; Spoke to pt 04/08, she reports improved asthma symptoms, not requiring daily albuterol use. GERD: on PPI SUSAN PMFSH Active Problems Active Problems: All Active Problems Tobacco use disorder (Acute) Neck pain (Acute) Numbness and tingling of right upper extremity (Acute) Abnormal uterine bleeding (AUB) (Acute) Lumbar disc herniation with radiculopathy (Acute) Well woman exam (Acute) Muscle spasm of back (Acute) History of compression fracture of spine (Acute) Lumbar radiculopathy (Acute) Lumbosacral spondylosis (Acute) Mid back pain (Acute) Right hip pain (Acute) Hypercholesterolemia (Acute) Colon cancer screening (Acute) Upper respiratory infection (Acute) Obesity (BMI 30.0-34.9) (Acute) Left wrist pain (Acute) Mild obstructive sleep apnea (Acute) Stenosis of lacrimal duct (Acute) Vitamin B12 deficiency (Acute) Right shoulder pain (Acute) Bartholin's gland cyst (Acute) Varicose veins of bilateral lower extremities with pain (Acute) Urge incontinence (Acute) Hemorrhoid (Acute) Constipation (Acute) Generalized anxiety disorder (Acute) Annual physical exam (Acute) ASCUS of cervix with negative high risk HPV (Acute) Migraine (Acute) Tobacco abuse (Acute) Asthma (Acute) GERD (gastroesophageal reflux disease) (Acute) Past Medical History Medical History Hypersomnia Pelvic floor weakness in female Family history of colon cancer Painful arc syndrome of right shoulder Breast cancer screening by mammogram Smoker Rotator cuff impingement syndrome of right shoulder Lumbar disc herniation Rotator cuff tear, left Labral tear of left hip joint Wedge compression fracture of T11 vertebra Cervical disc herniation ASCUS of cervix with negative high risk HPV Migraine Tobacco abuse Anxiety Asthma GERD (gastroesophageal reflux disease) Lateral epicondylitis of right elbow Family History Family History Mother Depression with anxiety Colon cancer, Onset Age: 50 Myocardial infarction Father No problems noted. Maternal Aunt Breast cancer Myocardial infarction Maternal Uncle Schizophrenia Myocardial infarction Maternal Grandmother Myocardial infarction Paternal Grandmother Myocardial infarction Maternal Grandfather Myocardial infarction Colon cancer Family history of problems with anesthesia: No Surgical History Surgical History History of esophagogastroduodenoscopy (EGD) H/O colonoscopy History of elbow surgery History of tubal ligation History of foot surgery History of Problems with Anesthesia: No Social History Social History Housing: House Alcohol intake: never Comment: medicated in PACU Patient Tobacco Use Status: Current everyday Tobacco user Cigarettes Per Day: 10 e-Cigarette/Vaping Use: Never Used Are you DNR?: No Advance Directives: No Advance Directives Information Provided: Yes Patient : No FDLMP: now service: No Current occupational status: employed 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 Cognitive needs: No Hearing needs: No Vision needs: No Meds Allergies Allergy/AdvReac Type Severity Reaction Status Date / Time barium sulfate Allergy Intermediate Nightmare Verified 04/04/25 14:43 codeine Allergy Intermediate Itching Verified 04/04/25 14:43 varenicline (From Chantix) Allergy Intermediate nightmares Verified 04/04/25 14:43 Home Medications ?Medication ?Instructions ?Recorded ?Confirmed ?Last Taken ?Type oxybutynin chloride 5 mg tablet 10 mg PO BEDTIME 08/19/24 03/18/25 Unknown History Exam Height,Weight and Vital Signs: Height 5 ft 2 in Weight 90.718 kg Pertinent Lab Results Pertinent Lab Results: Laboratory Tests 03/22/25 07:50 WBC 12.8 H RBC 4.87 Hgb 14.2 Hct 43.6 Plt Count 319 Sodium 140 Potassium 4.2 Chloride 107 BUN 11 Creatinine 0.63 Assessment and Plan Final Anesthetic Review Family History of Problems with Anesthesia: No History of Problems with Anesthesia: No Documented by User: Rosita Richardson MD 04/11/25 08:09 [facility] Past Medical History Medical History Hypersomnia Pelvic floor weakness in female Family history of colon cancer Painful arc syndrome of right shoulder Breast cancer screening by mammogram Smoker Rotator cuff impingement syndrome of right shoulder Lumbar disc herniation Rotator cuff tear, left Labral tear of left hip joint Wedge compression fracture of T11 vertebra Cervical disc herniation ASCUS of cervix with negative high risk HPV Migraine Tobacco abuse Anxiety Asthma GERD (gastroesophageal reflux disease) Lateral epicondylitis of right elbow Family History Family History Mother Depression with anxiety Colon cancer, Onset Age: 50 Myocardial infarction Father No problems noted. Maternal Aunt Breast cancer Myocardial infarction Maternal Uncle Schizophrenia Myocardial infarction Maternal Grandmother Myocardial infarction Paternal Grandmother Myocardial infarction Maternal Grandfather Myocardial infarction Colon cancer Surgical History Surgical History History of esophagogastroduodenoscopy (EGD) H/O colonoscopy History of elbow surgery History of tubal ligation History of foot surgery Social History Social History Housing: House Alcohol intake: never Comment: medicated in PACU Patient Tobacco Use Status: Current everyday Tobacco user Cigarettes Per Day: 10 e-Cigarette/Vaping Use: Never Used Are you DNR?: No Advance Directives: No Advance Directives Information Provided: Yes Patient : No FDLMP: now service: No Current occupational status: employed 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 Cognitive needs: No Hearing needs: No Vision needs: No Meds Allergies Allergy/AdvReac Type Severity Reaction Status Date / Time barium sulfate Allergy Intermediate Nightmare Verified 04/04/25 14:43 codeine Allergy Intermediate Itching Verified 04/04/25 14:43 varenicline (From Chantix) Allergy Intermediate nightmares Verified 04/04/25 14:43 Home Medications ?Medication ?Instructions ?Recorded ?Confirmed ?Last Taken ?Type oxybutynin chloride 5 mg tablet 10 mg PO BEDTIME 08/19/24 03/18/25 Unknown History Exam Airway Mallampati Class: II TM Dist: >3cm Neck ROM: Full Loose/Missing/Broken Teeth: No Heart: RRR Lungs: CTA Assessment and Plan Assessment Anesthesia Assessment: Anesthesia Plan Discussed and Chart Reviewed Final Anesthetic Review NPO: Yes ASA Class: II Final Preanesthetic Review: Meds/Allgs Chart Reviewed, Consent Obtained/Reviewed and Anes Risks/Benef Reviewed Patient Risk: Low Procedure Risk: Low Anesthetic Plan Anesthetic Plan: GA Disposition: Standard PACU
[2025-04-11] VITALS (12 sets, daily range): BP systolic 121–189; BP diastolic 71–86; PULSE 60–81; RESP 12–21; TEMP 36.1–36.4; O2SAT 93–100; BMI 39.1
[2025-04-11 06:48] LABS: UPreg QC Valid YES
[2025-04-11] MEDS: Lactated Ringers 1,000 ML 100 ML IVCONT (06:50)
--- NOTE | 2025-04-11 07:36 | MHC.SHP ---
Pre-Procedural Eval Section A - 24 Hr Update-Section A only Date of Service: 04/11/25 The patient is an INPATIENT: No Changes since office visit: No Cold of Flu in the past 2 weeks, No New Medical Problems, No Changes in Medication and No Patient answered all questions The patient has been examined within 24 hours of the surgical procedure. The History & Physical has been completed within 30 days and I have reviewed it.: Yes Section B - Complete if H&P > 30 days Chief Complaint: Abnormal uterine and vaginal bleeding, Allergies: Allergies Allergy/AdvReac Type Severity Reaction Status Date / Time barium sulfate Allergy Intermediate Nightmare Verified 04/04/25 14:43 codeine Allergy Intermediate Itching Verified 04/04/25 14:43 varenicline (From Chantix) Allergy Intermediate nightmares Verified 04/04/25 14:43 Plan Diagnosis/Plan: Unchanged I have reviewed the history and physical and performed a pertinent physical examination on my patient. No changes have occurred unless specified. Time Spent With Patient Time: Total time managing care of this patient today ____ minutes.
--- NOTE | 2025-04-11 09:04 | PM.OP ---
Brief Operative Note Date of Service: 04/11/25 Pre-op diagnosis: AUB, endometrial polyp by EMB pathology Post-op diagnosis: same (Endometrial polyp) Procedure: Hysteroscopy D&C, Polypectomy Surgeon: Moises Gómez MD Anesthesia: GLMA Was an Substation Wireman used for this Procedure?: No Estimated blood loss (mL): 0 Pathology: other (Endometrial Scrapping. Polyp) Condition: stable Disposition: PACU
--- NOTE | 2025-04-11 09:05 | W.PM.OPN ---
Operative Note Operative Note Date of Service: 04/11/25 Narrative: Preop Diagnosis: AUB, Endometrial polyp by EMB pathology Operation: Diagnostic Hysteroscopy, Dilataion & Curettage and polypectomy Post Op Diagnosis: Endometrial Polyp QBL: Minimal Anesthesia: GLMA Surgeon: Moises Gómez MD Biomedical Technician: None Complication: None Pathology: Endometrial Scrapings, Endometrial polyp Procedure: The patient was put in the dorsal lithotomy position, scrubbed, and draped in the usual manner. A sterile speculum was inserted in the patient's vagina. The anterior lip of the cervix was grasped with a single tooth tenaculum. The cervix was dilated up to 5 mm, then the scope was inserted in the patient's uterus. Inspection revealed endometrial polyp. The Myosure Reach device was used; it was introduced through the operative channel and polypectomy done with no complications. The scope was then taken out from the uterine cavity, sharp curettings was carried on with minimal to moderate amount of tissues retrieved. At the end of the procedure, all instruments were taken out of the patient uterine and vaginal cavity. The single tooth tenaculum was removed and homeostasis was assured using pressure,. The patient tolerated the procedure well and was transferred to the PACU in a stable condition.
== END 2025-04-11 11:41 | disposition home or self-care (01) ==
PROVIDERS: Nurse Practitioner; PCP Internal Medicine; Visit Provider Obstetrics & Gynecology
PROC: 0UDB8ZZ Extraction of Endometrium, Via Natural or Artificial Opening Endoscopic (ICD-10-PCS; CPT 58558; principal; 2025-04-11 08:30)
DX: N93.9 Abnormal uterine and vaginal bleeding, unspecified (principal); N84.0 Polyp of corpus uteri; J45.909 Unspecified asthma, uncomplicated; F41.9 Anxiety disorder, unspecified; K21.9 Gastro-esophageal reflux disease without esophagitis; Z79.899 Other long term (current) drug therapy; Z79.51 Long term (current) use of inhaled steroids; Z80.0 Family history of malignant neoplasm of digestive organs; Z88.5 Allergy status to narcotic agent; Z88.8 Allergy status to other drugs, medicaments and biological substances; Z91.041 Radiographic dye allergy status; Z98.51 Tubal ligation status; Z98.890 Other specified postprocedural states; F17.210 Nicotine dependence, cigarettes, uncomplicated
CPT/HCPCS: 58558; 81025; 88305; J0131; J1100; J1630; J1885; J2003; J2250; J2405; J2704; J3010

== ENCOUNTER → 2025-04-11 06:22 | Outpatient (BNV) | payer BC, SELFPAY | PROVIDERS: PCP Internal Medicine; Visit Provider Obstetrics & Gynecology | DX: N93.9 Abnormal uterine and vaginal bleeding, unspecified (principal) | CPT/HCPCS: 58558 ==

== ENCOUNTER 2025-04-28 07:59 | Outpatient (AMB) | payer BC, SELFPAY ==
--- NOTE | 2025-04-28 08:00 | MHC.OFFVIS ---
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 The pathology showed the following: A. Endometrium, polypectomy: Clinically polypoid secretory endometrium with patchy breakdown; no atypia identified. B. Endometrium, curettage: Secretory endometrium; abundant blood; no atypia or hyperplasia identified The following workup was done.: H&H= 14.2/43.6 TSH, hCG, GC and chlamydia were negative. Endometrial biopsy pathology showed : Proliferative endometrium; fragments with features of polyp; no atypia identified. Hysteroscopy D&C polypectomy done, see pathology above Co testing was done in 05/04 was negative. Mammogram was BI-RADS 1 Pelvic ultrasound showed the following: Uterus 7.8 x 4.0 x 4.0 cm. Endometrium 4 mm. 1.8 cm anterior uterine fibroid. Trace free fluid. Right ovary 3.4 x 2.5 x 2.9 cm. 2.8 x 2.7 cm simple cyst. Left ovary 1.4 x 1.0 x 1.8 cm. No focal abnormality. Impression: 1.8 cm anterior fibroid Simple cyst right ovary [facility] Medical History Hypersomnia Pelvic floor weakness in female Family history of colon cancer Painful arc syndrome of right shoulder Breast cancer screening by mammogram Smoker Rotator cuff impingement syndrome of right shoulder Lumbar disc herniation Rotator cuff tear, left Labral tear of left hip joint Wedge compression fracture of T11 vertebra Cervical disc herniation ASCUS of cervix with negative high risk HPV Migraine Tobacco abuse Anxiety Asthma GERD (gastroesophageal reflux disease) Lateral epicondylitis of right elbow Surgical History History of esophagogastroduodenoscopy (EGD) H/O colonoscopy History of elbow surgery History of tubal ligation History of foot surgery Family History Mother Depression with anxiety Colon cancer, Onset Age: 50 Myocardial infarction Father No problems noted. 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 Cognitive needs: No Hearing needs: No Vision needs: No Female Reproductive History Menstrual Age of Menarche: 15 Review of Systems Const All systems reviewed & are unremarkable except as noted in HPI and below Reports as per HPI and Reports no additional complaints GI Reports no additional complaints Reports no additional complaints Physical Exam Vital Signs: Last Vital Signs BP 128/74 04/28/25 08:05 BMI result Body Mass Index 38.4 Assessment & Plan Assessment & Plan (1) Abnormal uterine bleeding (AUB): Code(s): N93.9 - Abnormal uterine and vaginal bleeding, unspecified Category: Medical Plan: Discussed with the patient the results of the work up done and options of treatment including Lysteda, control pills, Mirena IUD, endometrial ablation and hysterectomy. All pros, cons, risks and benefits if each option was discussed with the patient and the patient decided to go ahead with Mirena IUD so a more detailed discussion about it was conducted including mechanism of action, risks (uterine perforation, infection, injury to bladder, bowel, displacement, and others) benefits (hypo menorrhea, amenorrhea, ...). GC/CT were taken and the patient was instructed to schedule Mirena IUD insertion on day 1-5 of next cycle . All questions answered, the patient verbalized understanding (2) Uterine myoma: Code(s): D25.9 - Leiomyoma of uterus, unspecified Category: Medical Plan: Discussed with the patient the findings on pelvic ultrasound & the risk of myosarcoma; in addition reviewed with the patient that malignancy and pre malignancy cannot be ruled out without hysterectomy for pathological evaluation ; furthermore, explained to the patient the limitation of pelvic ultrasound and endometrial biopsy in the setting. Discussed with the patient the options of treatment including expectant management versus hysterectomy; the pros and cons, risks benefits of each approach were discussed with the patient including the fact that in cases of myosarcoma, surgical treatment can lead to early diagnosis and positively affects the prognosis; after further discussion, the patient decided to proceed with expectant management. Will repeat pelvic ultrasound periodically. Instructions given to patient to call in case any of the following occurs: pressure symptoms, abnormal uterine bleeding, pelvic pain; and to schedule a six-months pelvic ultrasound (order placed) and a follow-up appointment . All questions answered, the patient verbalized understanding and agreed with the plan . Orders: Orders US pelvic and transvaginal 6 Months D25.9 - Leiomyoma of uterus, unspecified Coding Level of Care Code Est Pt Level 3 (62812) Diagnoses Abnormal uterine bleeding (AUB) N93.9 Uterine myoma D25.9
[2025-04-28 08:05] VITALS: BP 128/74; BMI 38.4
== END 2025-04-28 08:45 | disposition home or self-care (01) ==
LOC: HO.HWS 07:59
PROVIDERS: PCP Internal Medicine; Visit Provider Obstetrics & Gynecology
DX: N93.9 Abnormal uterine and vaginal bleeding, unspecified (principal); D25.9 Leiomyoma of uterus, unspecified
CPT/HCPCS: 99213

== ENCOUNTER 2025-05-26 15:24 | Outpatient (AMB) | payer BC, SELFPAY ==
--- NOTE | 2025-05-26 15:31 | MHC.PC.OV ---
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 Accompanied by: Self / Same As Patient Allergies barium sulfate Allergy (Intermediate, Verified 05/26/25 15:32) Nightmare codeine Allergy (Intermediate, Verified 05/26/25 15:32) Itching varenicline (From Chantix) Allergy (Intermediate, Verified 05/26/25 15:32) nightmares Medication List - Last Reconciled 05/26/25 by Bernadette Cortez PA-C albuterol sulfate 90 mcg/actuation 2 puffs inhalation Q6H PRN amitriptyline 50 mg PO BEDTIME bupropion HCl SR (Wellbutrin SR) 150 mg PO DAILY cholecalciferol (vitamin D3) 100 mcg (2 x 50 mcg (2,000 unit)) PO DAILY fluticasone furoate-vilanterol 100-25 mcg/dose (Breo Ellipta) 1 inh inhalation DAILY gabapentin 300 mg PO TID 30 days hydroxyzine HCl 25 mg PO BID ipratropium-albuterol 0.5 mg-3 mg(2.5 mg base)/3 mL 3 mL inhalation TID PRN ipratropium-albuterol 20-100 mcg/actuation (Combivent Respimat) 1 puff PO Q6H methylprednisolone mg PO DIRECTED nebulizers (Mini Plus Nebulizer [facility] [place]) As directed omeprazole 20 mg PO BID 90 days oxybutynin chloride 10 mg PO BEDTIME sumatriptan succinate take 1 tab at onset of headache; if no relief, may repeat 1 tab after at least 2 hrs; max = 2 tabs/24 hrs PO tizanidine 4 mg PO TID PRN Tobacco use date assessed: 03/18/25 Dental Screening Dental Screen Date: 03/18/25 HPI annual exam HPI Details 45-year-old female with past medical history of GERD, asthma, tobacco abuse, generalized anxiety disorder, obstructive sleep apnea and urge incontinence last seen 03/2025 coming in for annual exam Presenting for follow-up of multiple medical issues, primarily right knee pain. Her right knee pain began without a known traumatic event, initially managed with Motrin. The pain progressed to significant swelling and inability to bend the knee, requiring use of a brace. An MRI of the right knee showed mild soft tissue edema, bone marrow edema in the medial tibial plateau suggestive of early osteoarthritis or a low-grade injury, iliotibial band syndrome, and fluid around the knee, but no meniscal tear. She was prescribed prednisone for an osteoarthritic flare and was given a prescription for physical therapy. For a history of abnormal uterine bleeding, she underwent a gynecological procedure which has resulted in much-improved, less frequent bleeding. She reports poor sleep, waking every two hours, and significant snoring that disturbs her family. A home sleep study performed about two years ago was reportedly mild. The patient successfully quit smoking with the help of Wellbutrin, which she no longer needs. She endorses symptoms of depression, attributing them to feeling overwhelmed by responsibilities. eye doctor: yearly Jen pap smear: UTD with nurse gynecology mammo: 12/2024 colonoscopy: due next year vaccines: MND [facility] Medical History Hypersomnia Pelvic floor weakness in female Family history of colon cancer Painful arc syndrome of right shoulder Breast cancer screening by mammogram Smoker Rotator cuff impingement syndrome of right shoulder Lumbar disc herniation Rotator cuff tear, left Labral tear of left hip joint Wedge compression fracture of T11 vertebra Cervical disc herniation ASCUS of cervix with negative high risk HPV Migraine Tobacco abuse Anxiety Asthma GERD (gastroesophageal reflux disease) Lateral epicondylitis of right elbow Surgical History History of esophagogastroduodenoscopy (EGD) H/O colonoscopy History of elbow surgery History of tubal ligation History of foot surgery Family History Mother Depression with anxiety Colon cancer, Onset Age: 50 Myocardial infarction Father No problems noted. 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 1. Little interest or pleasure in doing things: several days 2. Feeling down, depressed, or hopeless: several days 3. Trouble falling or staying asleep, or sleeping too much: nearly every day 4. Feeling tired or having little energy: nearly every day 5. Poor appetite or overeating: nearly every day 6. Feeling bad about yourself - or that you are a failure or have let yourself or your family down: several days 7. Trouble concentrating on things, such as reading the newspaper or watching television: not at all 8. Moving or speaking so slowly that other people could have noticed. Or the opposite - being so fidgety or restless that you have been moving around a lot more than usual: not at all 9. Thoughts that you would be better off or of hurting yourself in some way: not at all Total score: 12 Depression Screening Interpretation: Positive Depression Screening Follow-up: Existing condition and In treatment Depression Screening Done: Yes Source: Developed by Drs. Sathish Bui, Adriana Watts, Vladislav Espinoza and colleagues, with an educational dominick from [employer]. Thrive Questionnaire Date Thrive assessed: 05/19/25 I am a: Patient What is your living situation today?: I have a steady place to live Within the past 12 months, did the food you bought not last and you didn't have the money to get more?: I choose not to answer this question Within the past 12 months, did you worry whether your food would run out before you got money to buy more?: I choose not to answer this question Do you have trouble paying for medicines?: No Do you have trouble getting transportation to medical appointments?: No Do you have trouble paying your heating and electricity bill?: I choose not to answer this question Do you have trouble taking care of your child, family member or friend?: No Do you have trouble with day-to-day activities such as bathing, preparing meals, shopping, managing finances, etc.?: No Are you currently unemployed and looking for a job?: No Are you interested in more education?: No Please select the resources that you would like help with: None Currently or been in a relationship where the following occur: No concerns reported THRIVE Score: 0 AUDIT C Alcohol Use Questionnaire (AUDIT-C) 1. How often do you have a drink containing alcohol?: Never Total Score: 0 ADELAIDA-7 AMB Questionnaire ADELAIDA-7 Date ADELAIDA - 7 assessed: 08/19/24 Feeling nervous, anxious, or on edge: 1 = Several days Not being able to stop or control worryin = Several days Worrying too much about different things: 1 = Several days Trouble relaxin = Several days Being so restless that it is hard to sit still: 1 = Several days Becoming easily annoyed or irritable: 3 = Nearly every day Feeling afraid as if something awful might happen: 0 = Not at all Total ADELAIDA-7 score (0-4 normal; 5-9 mild; 10-14 moderate; 15-21 severe): 8 Source: Developed by Drs. Sathish Bui, Adriana Watts, Vladislav Espinoza and colleagues, with an educational dominick from [employer]. ADELAIDA-7 Assessment Billing ADELAIDA-7 Assessment Tool: ADELAIDA-7 Assessment 99765 Review of Systems Const Denies body aches, Denies fatigue, Denies fever(s), Denies frequent falls, Denies headache(s) and Denies weakness Eyes Reports no additional complaints and Denies change in vision ENT Denies dysphagia, Denies dizziness, Denies facial pain, Denies headache(s), Denies nasal congestion and Denies odynophagia Card Denies chest pain, Denies syncope, Denies irregular heart rhythm, Denies leg edema, Denies lightheadedness and Denies dyspnea Resp Denies cough and Denies dyspnea GI Denies abdominal pain, Denies dysphagia, Denies dyspepsia, Denies nausea, Denies odynophagia and Denies vomiting Denies urinary frequency, Denies dysuria, Denies urinary hesitancy and Denies urinary urgency Musc Reports as per HPI, Reports abnormal gait, Denies back pain and Denies myalgias Skin/Breast Reports system reviewed and no additional complaints, except as documented Neuro Reports abnormal gait, Denies dizziness, Denies syncope, Denies frequent falls, Denies headache(s) and Denies weakness Psych Reports no additional complaints Endo Denies fatigue Physical exam (Primary Care) Vital Signs: Last Vital Signs Temp 97.1 F 05/26/25 15:50 Pulse 77 05/26/25 15:50 BP 136/80 05/26/25 15:50 Pulse Ox 99 05/26/25 15:50 Oxygen Delivery Method Room Air 05/26/25 15:50 BMI result Body Mass Index 39.0 Tobacco/Smoking Status: Tobacco use Status Tobacco use date assessed 03/18/25 05/26/25 15:33 Patient Tobacco Use Status Current everyday Tobacco 05/26/25 15:33 e-Cigarette/Vaping Use Never Used 05/26/25 15:33 PHQ-9: PHQ-9 Score PHQ-9: Total score 12 05/26/25 16:09 Depression Screening Interpretation: Positive Depression Screening Follow-up: Existing condition and In treatment Thrive Assessment: Date of Thrive Assessment Date Thrive assessed 05/19/25 05/26/25 15:33 Currently or been in a relationship where the following occur: No concerns reported Const General: cooperative, healthy appearing, comfortable and no acute distress Orientation/consciousness: patient oriented x3 HENMT Head: Yes normocephalic Ears: hearing grossly normal bilaterally, external ears normal, TM's normal bilaterally and EAC's normal General nose exam: Normal external nose present Face and sinus: Yes normal facial exam and Yes sinuses nontender Mouth: Normal oral and palatal mucosa present and tongue normal Throat: Yes posterior oropharynx normal Eyes General: appearance normal, both eyes and all related structures Conjunctivae: conjunctivae normal Pupils: Equal, round and reactive pupils present EOM: EOMs intact bilaterally and No Nystagmus present Neck Neck: Yes normal visual inspection, Yes full ROM and Yes no lymphadenopathy Chest Chest palpation & inspection: normal inspection of the chest Resp Effort & Inspection: normal respiratory effort Auscultation: clear to auscultation bilaterally, no crackles, no rales, no rhonchi, no wheezes and breath sounds present Cardio Rate: regular rate Rhythm: abnormal rhythm Peripheral pulses: radial pulses present and dorsalis pedis present GI Inspection: Yes normal to inspection and No Abdominal wall edema Palpation (GI): Soft to palpation, not firm and nontender Auscultation: normal bowel sounds Rectal Exam - Female: deferred General: Yes no CVA tenderness Back/Spine/Pelvis Back: no CVA tenderness Skin General skin exam: no rashes or lesions noted Neuro General: patient oriented x3 Cranial nerves: Yes Equal, round and reactive pupils present, Yes Midline tongue present, Yes Ability to bilaterally elevate shoulders present and No Nystagmus present Gait exam (Neuro): Normal gait present Extrem General: Yes normal to inspection, Yes full ROM, No no pedal edema and No edema Psych Speech and movement: Normal speech and movement present Affect: normal affect Insight: Good insight present (Psych) Judgement: Good judgement present (Psych) Office Procedures EKG Details: EKG was reviewed by myself and Dr. Medellin. The EKG revealed normal sinus rhythm with nonspecific inverted T-waves in lead II and V1. It also revealed left axis deviation. No evidence of ectopic beats, arrhythmia or ischemia [id number], Complete Coding Level of Care Code Est Pt Prev Care 40-64y(41523) Diagnoses Annual physical exam Z00.00 Hypercholesterolemia E78.00 Obesity (BMI 30.0-34.9) E66.9 Mild intermittent asthma without complication J45.20 Asthma complication type: uncomplicated Asthma persistence: intermittent Asthma severity: mild Migraine G43.909 Tobacco use disorder F17.200 Osteoarthritis of right knee M17.11 Irregular heart beat I49.9 Left axis deviation R94.31 Mild obstructive sleep apnea G47.33 CPT Codes EKG - CPT: [id number], Complete ([id number]) Additional Codes ADELAIDA-7 Assessment Billing - ADELAIDA-7 Assessment Tool: ADELAIDA-7 Assessment 01954 ([id number]) Assessment & Plan Assessment & Plan (1) Annual physical exam: Code(s): Z00.00 - Encounter for general adult medical examination without abnormal findings Category: Medical Plan: Patient is up-to-date on all recommended routine screenings and vaccinations for her age. Healthy diet and regular exercise is encouraged. Blood work is up-to-date and has been reviewed with the patient today. (2) Hypercholesterolemia: Code(s): E78.00 - Pure hypercholesterolemia, unspecified Category: Medical Plan: Avoid foods that are high in cholesterol such as red meat, fried foods, eggs and baked goods. Triglyceride goal of less than 150 and LDL goal of less than 130. (3) Obesity (BMI 30.0-34.9): Code(s): E66.9 - Obesity, unspecified Category: Medical Plan: Healthy diet and regular exercise is encouraged. Referral was placed to nutrition today (4) Asthma: Code(s): J45.909 - Unspecified asthma, uncomplicated Category: Medical Qualifiers: Asthma complication type: uncomplicated Asthma persistence: intermittent Asthma severity: mild Qualified Code(s): J45.20 - Mild intermittent asthma, uncomplicated Plan: Asthma currently controlled on present medications. Continue on Breo and albuterol.? Avoid triggers such as allergies. (5) Migraine: Code(s): G43.909 - Migraine, unspecified, not intractable, without status migrainosus Category: Medical Plan: For migraine prevention continue on amitriptyline as this has been beneficial for her. She does use sumatriptan as needed but has not needed it recently. (6) Tobacco use disorder: Code(s): F17.200 - Nicotine dependence, unspecified, uncomplicated Category: Medical Plan: Successfully stopped smoking with Wellbutrin (7) Osteoarthritis of right knee: Code(s): M17.11 - Unilateral primary osteoarthritis, right knee Category: Medical Plan: Referral was placed to orthopedics further evaluation and physical therapy as well. (8) Irregular heart beat: Code(s): I49.9 - Cardiac arrhythmia, unspecified Category: Medical Plan: Irregular heartbeat on exam however EKG revealed normal sinus rhythm. We will continue to monitor. Patient is asymptomatic at this time (9) Left axis deviation: Code(s): R94.31 - Abnormal electrocardiogram [ECG] [EKG] Category: Medical Plan: An in-office EKG showed left axis deviation. To investigate the cause, an echocardiogram (ultrasound of the heart) will be ordered to assess for structural changes, such as left ventricular hypertrophy from uncontrolled hypertension. The patient will monitor her blood pressure daily at home with a cuff and send the readings via the portal in one to two weeks to assess for spikes, as her in-office readings are consistently normal. (10) Mild obstructive sleep apnea: Code(s): G47.33 - Obstructive sleep apnea (adult) (pediatric) Category: Medical Plan: Recommend weight loss and positional therapy. Avoid lying supine as most events were in this position. Plan This note was constructed using voice recognition software. While every effort has been made to ensure accuracy and department head college or university, still areas may have been included sometimes these areas may affect the content or meeting of the given symptoms. Total time spent caring for the patient today was 40 minutes. This includes time spent before the visit reviewing the chart, time spent during the visit, and time spent after the visit and documentation. Patient was informed and verbally consented to the use of an ambient scribe for clinic note documentation during this visit. Orders: Orders PT Evaluation and Treatment 05/26/25 M17.11 - Unilateral primary osteoarthritis, right knee AMB EKG-In Office 05/26/25 I49.9 - Cardiac arrhythmia, unspecified CA echo transthoracic complete 05/26/25 R94.31 - Abnormal electrocardiogram [ECG] [EKG] Referrals Orthopedics Referral M17.11 - Unilateral primary osteoarthritis, right knee Scale Installer Nutrition Referral E53.8 - Deficiency of other specified B group vitamins, E66.9 - Obesity, unspecified, E78.00 - Pure hypercholesterolemia, unspecified Medications: Discontinued ipratropium-albuterol 20-100 mcg/actuation (Combivent Respimat) Discontinued Reason: Patient no longer taking 1 puff PO Q6H 4 mL 0RF J45.20 - Mild intermittent asthma, uncomplicated ipratropium-albuterol 0.5 mg-3 mg(2.5 mg base)/3 mL for 3 doses Discontinued Reason: Patient Completed Course 3 mL inhalation TID PRN 180 mL 0RF shortness of breath or wheezing bupropion HCl SR (Wellbutrin SR) Discontinued Reason: Patient no longer taking 150 mg PO DAILY 90 tabs 0RF hydroxyzine HCl Discontinued Reason: Patient no longer taking 25 mg PO BID 180 tabs 0RF F41.1 - Generalized anxiety disorder
[2025-05-26 15:50] VITALS: BP 136/80; PULSE 77; TEMP 36.2; O2SAT 99; BMI 39.0
--- OUTSIDE RECORDS SUMMARY | 2025-05-26 21:53 | XMS_ITS | Patient Health Record ---
Author Organization [facility] tyrone Buckley Address [address] [place] [address] Care Team Providers Care Audio Visual Aide Name Role Phone Huong Major Primary Care Provider José Enriquez Unavailable [phone] Allergies No Known Allergies Reason For Referral [...] Status Risk Notes Problem Plantar fascial fibromatosis ([id number]) Plantar fascial fibromatosis (M72.2) Active confirmed Plan Of Treatment Pending Test Test Name Order Date MRI : Ankle, right 07/26/2022 X ray : Foot, right 3V 05/26/2022 [id number] TENDON SHEATH/LIGAMENT 1 07/27/2021 Insurance Providers Payer Name Payer Address Payer Phone Subscriber Number Group Number Insured Name Patient Relationship to Insured Coverage Start Date Coverage End Date [facility] [address] [place] [address] [id number] Destinee Childs Self - patient is the insured Medical (General) History Medical History History ICD Code asthma Headaches/Migraines Surgical History Surgery Date(Month/Year) heel surgery, heel spur right foot elbow sx, right tubal ligation
== END 2025-05-26 16:53 | disposition home or self-care (01) ==
LOC: HO.HMCH 15:25
PROVIDERS: PCP Internal Medicine
DX: Z00.00 Encounter for general adult medical examination without abnormal findings (principal); E78.00 Pure hypercholesterolemia, unspecified; E66.9 Obesity, unspecified; Z68.39 Body mass index [BMI] 39.0-39.9, adult; J45.20 Mild intermittent asthma, uncomplicated; G43.909 Migraine, unspecified, not intractable, without status migrainosus; F17.200 Nicotine dependence, unspecified, uncomplicated; M17.11 Unilateral primary osteoarthritis, right knee; I49.9 Cardiac arrhythmia, unspecified; R94.31 Abnormal electrocardiogram [ECG] [EKG]; G47.33 Obstructive sleep apnea (adult) (pediatric)

== ENCOUNTER → 2025-05-26 15:24 | Outpatient (BNVA) | payer BC, SELFPAY | PROVIDERS: PCP Internal Medicine | DX: Z00.00 Encounter for general adult medical examination without abnormal findings (principal); E78.00 Pure hypercholesterolemia, unspecified; E66.9 Obesity, unspecified; J45.20 Mild intermittent asthma, uncomplicated; G43.909 Migraine, unspecified, not intractable, without status migrainosus; M17.11 Unilateral primary osteoarthritis, right knee; I49.9 Cardiac arrhythmia, unspecified; R94.31 Abnormal electrocardiogram [ECG] [EKG]; G47.33 Obstructive sleep apnea (adult) (pediatric); F17.210 Nicotine dependence, cigarettes, uncomplicated | CPT/HCPCS: 93005; 96127 ==